=== PATIENT | male | born 1975 | race Caucasian/White ===

== ENCOUNTER 2016-11-10 14:11 | Inpatient (IN) | payer OTHER ==
[2016-11-10 16:11] VITALS: BMI 22.1
--- NOTE | 2016-11-10 17:46 | HP ---
COWS - Scale Resting Pulse: 0= [place] 80 or Below Sweatin= Chills/Flushing Restless Observation: 3= Extraneous Movement Pupil Size: 0= Normal to Room Light Bone or Joint Aches: 2= Severe Diffuse Aches Runny Nose/ Eye Tearin= Runny Nose/Eyes GI Upset > 30mins: 2= Nausea/Diarrhea Tremor Observation: 2= Slight Tremor Visible Yawning Observation: 0= None Anxiety or Irritability: 2=Irritable/Anxious Goose Flesh Skin: 0=Smooth Skin COWS Score: 14 Admission [facility] Chief Complaint: WITHDRAWAL SX Allergies/Adverse Reactions: Allergies Allergy/AdvReac Type Severity Reaction Status Date / Time shellfish derived Allergy Severe Itching Verified 11/10/16 17:09 No Known Drug Allergies Allergy Verified 11/10/16 17:09 History of Present Illness: 40 YEARS OLD MALE WITH LONG HISTORY OF OPIATE, COCAINE, MARIJUANA, NICOTINE DEPENDENCE HAS HYPERTENSION HYPERLIPIDEMIA ASTHMA AND ARTHRITIS AND DEPRESSION IS ADMITTED TO DETOX Exam Limitations: No Limitations - Ebola screening Have you traveled outside of the country in the last 21 days: No Have you had contact with anyone from an Ebola affected area: No Have you been sick,other than usual withdrawal symptoms: No Do you have a fever: No - Review of Systems Constitutional: Loss of Appetite, Changes in sleep, Unintentional Wgt. Loss, Unexplained wgt Loss EENT: reports: Blurred Vision (EYE GLASSES AT HOME) Respiratory: reports: No Symptoms reported Cardiac: reports: No Symptoms Reported GI: reports: Nausea, Poor Appetite, Poor Fluid Intake, Indigestion, Abdominal cramping : reports: No Symptoms Reported Musculoskeletal: reports: Back Pain, Joint Pain, Muscle Pain, Neck Pain Integumentary: reports: No Symptoms Reported Neuro: reports: Tremors Endocrine: reports: No Symptoms Reported Hematology: reports: No Symptoms Reported Psychiatric: reports: Judgement Intact, Orientated x3, Anxious, Depressed Other Systems: Reviewed and Negative Patient History - Patient Medical History Hx Anemia: No Hx Asthma: Yes (Pt is on MDI) Hx Chronic Obstructive Pulmonary Disease (COPD): No Hx Cancer: No Hx Cardiac Disorders: Yes (WPW syndrome.) Hx Congestive Heart Failure: No Hx Hypertension: Yes Hx Hypercholesterolemia: No Hx Pacemaker: No HX Cerebrovascular Accident: No Hx Seizures: No Hx Dementia: No Hx Diabetes: No Hx Gastrointestinal Disorders: No Hx Liver Disease: No Hx Genitourinary Disorders: No Hx Sexually Transmitted Disorders: No Hx Renal Disease (ESRD): No Hx Thyroid Disease: No Hx Human Immunodeficiency Virus (HIV): No (neg - 10/02/15) Hx Hepatitis C: No Hx Depression: No Hx Suicide Attempt: Yes (Tried to hang himself in group home in 2014) Hx Bipolar Disorder: Yes Hx Schizophrenia: No - Patient Surgical History Past Surgical History: No Hx Neurologic Surgery: No Hx Cataract Extraction: No Hx Cardiac Surgery: No Hx Lung Surgery: No Hx Breast Surgery: No Hx Breast Biopsy: No Hx Abdominal Surgery: No Hx Appendectomy: No Hx Cholecystectomy: No Hx Genitourinary Surgery: No Hx Orthopedic Surgery: No - PPD History Previous Implant?: Yes Documented Results: Negative w/o proof Implanted On Prior [facility] Admission?: Yes Date: 10/12/15 Results: 0 mm PPD to be Administered?: Yes - Smoking Cessation Smoking history: Current every day smoker Have you smoked in the past 12 months: Yes Aproximately how many cigarettes per day: 15 Cigars Per Day: 0 Hx Chewing Tobacco Use: No Initiated information on smoking cessation: Yes 'Breaking Loose' booklet given: 11/10/16 - Substance & Tx. History Hx Alcohol Use: No Hx Substance Use: Yes Substance Use Type: Cocaine, Marijuana, Opiates Hx Substance Use Treatment: Yes (09/2015 [facility]) - Substances Abused Heroin Route: Inhalation Frequency: Daily Amount used: 3 bags Age of first use: 23 Date of Last Use: 11/10/16 Crack Route: Smoking Frequency: Daily Amount used: $50-200 Age of first use: 17 Date of Last Use: 11/10/16 Marijuana/Hashish Route: Smoking Frequency: Daily Amount used: 1 gram Age of first use: 9 Date of Last Use: 11/09/16 Family Disease History - Family Disease History Family History: Unable to Obtain Family Disease History: Diabetes: Grandparent, Other: Father (NO CONTACT), Mother (NO CONTACT), Brother (NO CONTACT), Sister (NO CONTACT) Admission Physical Exam BHS - Vital Signs Vital Signs: Vital Signs - 24 hr 11/10/16 16:07 Temperature 95.4 F L Pulse Rate 73 Respiratory 20 Rate Blood Pressure 125/73 - Physical General Appearance: Yes: Appropriately Dressed, Mild Distress, Thin, Tremorous, Irritable, Sweating, Anxious HEENTM: Yes: Hearing grossly Normal, Normal ENT Inspection, Normocephalic, Normal Voice Respiratory: Yes: Chest Non-Tender, Normal Breath Sounds, No Accessory Muscle Use, Wheezing Neck: Yes: Supple, Trachea in good position Breast: Yes: Breasts Symetrical Cardiology: Yes: Regular Rhythm, Regular Rate, S1, S2, Other ([employer]) Abdominal: Yes: Non Tender, Soft, Increased Bowel Sounds Genitourinary: Yes: Within Normal Limits Back: Yes: Normal Inspection Musculoskeletal: Yes: full range of Motion, Gait Steady Extremities: Yes: Normal Inspection, Normal Range of Motion, Non-Tender, Tremors Neurological: Yes: Alert, Motor Strength 5/5, Normal Response Integumentary: Yes: Warm Lymphatic: Yes: Within Normal Limits - Diagnostic (1) Asthma Current Visit: Yes Status: Chronic Qualifiers: Asthma severity: mild persistent (2) Nicotine dependence Current Visit: Yes Status: Acute Qualifiers: Nicotine product type: cigarettes Substance use status: in withdrawal Qualified Code(s): F17.213 - Nicotine dependence, cigarettes, with withdrawal (3) 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 (4) GERD (gastroesophageal reflux disease) Current Visit: Yes Status: Chronic Qualifiers: Esophagitis presence: without esophagitis Qualified Code(s): K21.9 - Gastro-esophageal reflux disease without esophagitis (5) Bipolar II disorder Current Visit: Yes Status: Suspected (6) Hypertension Current Visit: Yes Status: Chronic Qualifiers: Hypertension type: essential hypertension Qualified Code(s): I10 - Essential (primary) hypertension (7) Weight loss Current Visit: Yes Status: Acute Cleared for Admission [facility] - Detox or Rehab [facility] Level of Care: Medically Managed Detox Regimen/Protocol: Methadone [facility] Breath Alcohol Content Breath Alcohol Content: 0 Urine Drug Screen - Results Drug Screen Negative: No Urine Drug Screen Results: THC-Marijuana, GERARD-Cocaine, OPI-Opiates
[2016-11-10] MEDS ORDERED: guaiFENesin/D-METHORPHAN HB 10 ML UNIT-DOSE CUPS PO PRN (18:01)
[2016-11-10] MEDS ORDERED: P-EPHED 60MG/TRIPROLIDI 2.5MG TABLET PO PRN (18:01)
[2016-11-10] MEDS ORDERED: MAGNESIUM HYDROX 2400MG/30ML ORAL SUSPENSION 30 ML CUP PO PRN (18:01)
[2016-11-10] MEDS ORDERED: LOPERAMIDE HCL 2 MG CAPSULE PO PRN (18:01)
[2016-11-10] MEDS ORDERED: MENTHOL/PHENOL 1 EACH UD MM PRN (18:01)
[2016-11-10] MEDS ORDERED: MAGNESIUM CITRATE 300 ML BOTTLE PO PRN (18:01)
[2016-11-10] MEDS ORDERED: diphenhydrAMINE HCL 50 MG CAPSULE PO PRN (18:01)
[2016-11-10] MEDS ORDERED: ACETAMINOPHEN 325 MG TABLET (FP) PO PRN (18:01)
[2016-11-10] MEDS ORDERED: NICOTINE POLACRILEX 4 MG GUM BC PRN (18:01)
[2016-11-10] MEDS ORDERED: MAG HYDROX/AL HYDROX/SIMETH 30 ML UNIT-DOSE CUP PO PRN (18:01)
[2016-11-10] MEDS ORDERED: ALBUTEROL SO4 2.5/IPRATROPIUM 0.5 INH SOL 3 ML VIAL.NEB. NEB PRN (18:05)
[2016-11-10] MEDS ORDERED: METHADONE HCL 10 MG TABLET (FOR DETOX USE ONLY) PO ONE ×2 (18:45→23:00)
[2016-11-10] MEDS: diazePAM 5 MG TABLET PO PRN (20:13)
[2016-11-10] MEDS: ATORVASTATIN CA 10 MG TABLET (FP) PO SCH (22:19)
[2016-11-10] MEDS: RANITIDINE HCL 150 MG TABLET (FP) PO SCH (22:19)
[2016-11-10] MEDS: THIAMINE HCL 100 MG TABLET (FP) PO SCH (22:19)
[2016-11-10 22:36] LABS: URINE APPEARANCE CLEAR; URINE BILIRUBIN NEGATIVE (NEGATIVE); URINE BLOOD NEGATIVE (NEGATIVE); URINE COLOR YELLOW; URINE GLUCOSE (UA) NEGATIVE (NEGATIVE); URINE KETONE NEGATIVE (NEGATIVE); URINE LEUK ESTERASE NEGATIVE (NEGATIVE); URINE NITRITE NEGATIVE (NEGATIVE); URINE PROTEIN NEGATIVE (NEGATIVE); URINE UROBILINOGEN NEGATIVE mg/dL (0.2-1.0)
[2016-11-11] MEDS: diazePAM 5 MG TABLET PO PRN ×5 (03:45→23:32)
[2016-11-11] MEDS: ALBUTEROL SO4 6.7 GM HFA INHALER IH PRN ×3 (03:49→21:25)
--- NOTE | 2016-11-11 08:08 | CONSULT ---
[facility] Psychiatric Consult - Data Date of interview: 11/11/16 Admission source: [facility] Identifying data: This is 40 years old male with history of Schizoaffective disorder, intoxicated with: Alcohol, Cannabis a nd Nicotine Substance Abuse History: - Smoking Cessation. Smoking history: Current every day smoker. Have you smoked in the past 12 months: Yes. Aproximately how many cigarettes per day: 15. Cigars Per Day: 0. Hx Chewing Tobacco Use: No. Initiated information on smoking cessation: Yes. 'Breaking Loose' booklet given : 11/10/16. - Substance & Tx. History. Hx Alcohol Use: No. Hx Substance Use: Yes. Substance Use Type: Cocaine, Marijuana, Opiates. Hx Substance Use Treatment: Yes (09/2015 [facility]). - Substances Abused. Heroin. Route: Inhalation. Frequency: Daily. Amount used: 3 bags. Age of first use: 23. Date of Last Use: 11/10/16. Crack. Route: Smoking. Frequency: Daily. Amount used: $50-200. Age of first use: 17. Date of Last Use: 11/10/16. Marijuana/Hashish. Route: Smoking. Frequency: Daily. Amount used: 1 gram. Age of first use: 9. Date of Last Use: 11/09/16 Medical History: HTN, LBP, Weight loss, Asthma, GERD, WPW Syndrom Psychiatric History: Patient reports history of Schozpaffective disorder with most recent 2017 psychoiatric admission at [facility] for safety, patient reports taking prior to admission: Seroquel 200mg po qhs. Celexa 20mg poqd Physical/Sexual Abuse/Trauma History: Denies Additional Comment: Seroquel 200mg po qhs. Celexa 20mg poqd Mental Status Exam - Mental Status Exam Alert and Oriented to: Person Cognitive Function: Fair Patient Appearance: Unkempt Mood: Anxious Affect: Mood Congruent Patient Behavior: Cooperative Speech Pattern: Appropriate Voice Loudness: Normal Thought Process: Circumstantial Thought Disorder: Being Controlled Hallucinations: Denies Suicidal Ideation: Denies Homicidal Ideation: Denies Insight/Judgement: Fair Sleep: Difficulty falling asleep Appetite: Weight loss Muscle strength/Tone: Mild Hypotonicity Gait/Station: Shuffling Additional Comments: Seroquel 200mg po qhs. Celexa 20mg poqd Psychiatric Findings - Problem List ([place] 1, 2,3) (1) Nicotine dependence Current Visit: Yes Status: Acute Qualifiers: Nicotine product type: cigarettes Substance use status: in withdrawal Qualified Code(s): F17.213 - Nicotine dependence, cigarettes, with withdrawal (2) Weight loss Current Visit: Yes Status: Acute (3) Bipolar II disorder Current Visit: Yes Status: Suspected (4) Acute bilateral low back pain Current Visit: No Status: Acute (5) Cocaine abuse Current Visit: No Status: Acute (6) Schizoaffective disorder Current Visit: No Status: Acute (7) Alcohol dependence with uncomplicated withdrawal Current Visit: No Status: Chronic (8) Cannabis abuse Current Visit: No Status: Chronic - Initial Treatment Plan Initial Treatment Plan: Seroquel 200mg po qhs. Celexa 20mg poqd
[2016-11-11 09:45] LABS: MCH 27.1 pg (25.7-33.7); MCHC 32.7 g/dl (32.0-35.9); MEAN CELL VOLUME 82.6 fl (80-96); MEAN PLT VOLUME 8.5 fl (7.5-11.1); PLATELET COUNT 445 K/MM3 (134-434); WHITE BLOOD COUNT 13.8 K/mm3 (4.0-10.0)
[2016-11-11 09:59] LABS: ALBUMIN 3.1 g/dl (3.4-5.0); ALK PHOS 98 U/L (45-117); ANION GAP 6 (8-16); BILIRUBIN,TOTAL 0.2 mg/dL (0.2-1.0); CALCIUM 9.1 mg/dL (8.5-10.1); CO2 28 mmol/L (21-32); CREATININE 0.7 mg/dL (0.7-1.3); GLUCOSE,RANDOM 87 mg/dL (74-106); SGOT/AST 24 U/L (15-37); SGPT/ALT 33 U/L (12-78); TOT PROT 5.9 g/dl (6.4-8.2)
[2016-11-11] MEDS ORDERED: METHADONE HCL 10 MG TABLET (FOR DETOX USE ONLY) PO ONE (10:00)
[2016-11-11] MEDS: NICOTINE 21 MG/24 HOURS TOPICAL PATCH TD SCH (10:11)
[2016-11-11] MEDS: PRENATAL VITAMINS W/ FOLIC ACID TABLET (FP) PO SCH (10:11)
[2016-11-11] MEDS: amLODIPine BESYLATE 10 MG TABLET (FP) PO SCH (10:11)
[2016-11-11] MEDS: RANITIDINE HCL 150 MG TABLET (FP) PO SCH ×2 (10:11→21:23)
[2016-11-11] MEDS: CITALOPRAM HYDROBROMIDE 20 MG TABLET (FP) PO SCH (10:13)
--- NOTE | 2016-11-11 10:25 | EKG ---
Test Reason : Blood Pressure : / mmHG Vent. Rate : 064 BPM Atrial Rate : 064 BPM P-R Int : 130 ms QRS Dur : 094 ms QT Int : 392 ms P-R-T Axes : 068 041 072 degrees QTc Int : 404 ms NORMAL SINUS RHYTHM NORMAL ECG NO PREVIOUS ECGS AVAILABLE Confirmed by CATHY PITTMAN, ROBERTH ([id number]) on 11/11/2016 10:24:45 AM Referred By: Wolf Pink Confirmed By:ROBERTH MORGAN MD
[2016-11-11 11:01] LABS: HIV 1 & 2 AB NEGATIVE; HIV 1 AGp24 NEGATIVE
--- NOTE | 2016-11-11 11:24 | PN ---
BHS COWS - Scale Resting Pulse: 0= [place] 80 or Below Sweatin=Flushed/Facial Moisture Restless Observation: 1= Difficult to Sit Still Pupil Size: 0= Normal to Room Light Bone or Joint Aches: 1= Mild Discomfort Runny Nose/ Eye Tearin= Runny Nose/Eyes GI Upset > 30mins: 0= None Tremor Observation of Outstretched Hands: 2= Slight Tremor Visible Yawning Observation: 2= >3x During Session Anxiety or Irritability: 2=Irritable/Anxious Goose Flesh Skin: 0=Smooth Skin COWS Score: 12 BHS Progress Note (SOAP) Subjective: shakes sweats interrupted sleep agitation Objective: 11/11/16 11:23 Vital Signs Temperature 97.9 F 11/11/16 06:31 Pulse Rate 78 11/11/16 06:31 Respiratory Rate 18 11/11/16 06:31 Blood Pressure 128/69 11/11/16 06:31 O2 Sat by Pulse Oximetry (%) Laboratory Tests 11/10/16 11/11/16 11/11/16 21:15 07:00 07:00 WBC 13.8 H D RBC 4.93 Hgb 13.3 Hct 40.7 MCV 82.6 MCH 27.1 MCHC 32.7 RDW 16.0 H Plt Count 445 H MPV 8.5 Sodium Potassium Chloride Carbon Dioxide Anion Gap BUN Creatinine Creat Clearance w eGFR Random Glucose Calcium Total Bilirubin AST ALT Alkaline Phosphatase Total Protein Albumin Urine Color Yellow Urine Appearance Clear Urine pH 6.0 Ur Specific [place] 1.020 Urine Protein Negative Urine Glucose (UA) Negative Urine Ketones Negative Urine Blood Negative Urine Nitrite Negative Urine Bilirubin Negative Urine Urobilinogen Negative HIV 1&2 Antibody Screen Negative HIV P24 Antigen Negative 11/11/16 07:00 WBC RBC Hgb Hct MCV MCH MCHC RDW Plt Count MPV Sodium 142 Potassium 4.8 Chloride 108 H Carbon Dioxide 28 Anion Gap 6 L BUN 14 Creatinine 0.7 D Creat Clearance w eGFR > 60 Random Glucose 87 D Calcium 9.1 Total Bilirubin 0.2 D AST 24 D ALT 33 Alkaline Phosphatase 98 D Total Protein 5.9 L Albumin 3.1 L D Urine Color Urine Appearance Urine pH Ur Specific [place] Urine Protein Urine Glucose (UA) Urine Ketones Urine Blood Urine Nitrite Urine Bilirubin Urine Urobilinogen HIV 1&2 Antibody Screen HIV P24 Antigen awake/alert ambulating no acute distress Assessment: 11/11/16 11:24 withdrawal sx Plan: continue detox increase fluids
[2016-11-11] MEDS ORDERED: PATIENT'S OWN MEDICATION (NON-FORMULARY) (Meloxicam [Mobic] 15 MG) PO SCH (16:00)
--- NOTE | 2016-11-11 17:53 | PN ---
BHS Progress Note Note: RECEIVED PHARMACIST INFORMED THAT LACK OF MOBIC AVAILABILITY, CELEBREX 200 MG BID CONTINUE DETOX
[2016-11-11] MEDS: CELECOXIB 200 MG CAPSULE PO SCH (21:23)
[2016-11-11] MEDS: ATORVASTATIN CA 10 MG TABLET (FP) PO SCH (21:23)
[2016-11-11] MEDS: QUEtiapine FUMARATE 200 MG TABLET PO SCH (21:23)
[2016-11-11] MEDS: THIAMINE HCL 100 MG TABLET (FP) PO SCH (23:31)
[2016-11-12] MEDS: diazePAM 5 MG TABLET PO PRN ×4 (06:42→22:24)
[2016-11-12] MEDS ORDERED: METHADONE HCL 5 MG TABLET (FOR DETOX USE ONLY) PO ONE (10:00)
[2016-11-12] MEDS: RANITIDINE HCL 150 MG TABLET (FP) PO SCH ×2 (10:12→22:24)
[2016-11-12] MEDS: amLODIPine BESYLATE 10 MG TABLET (FP) PO SCH (10:13)
[2016-11-12] MEDS: CITALOPRAM HYDROBROMIDE 20 MG TABLET (FP) PO SCH (10:13)
[2016-11-12] MEDS: PRENATAL VITAMINS W/ FOLIC ACID TABLET (FP) PO SCH (10:13)
[2016-11-12] MEDS: NICOTINE 21 MG/24 HOURS TOPICAL PATCH TD SCH (10:13)
[2016-11-12] MEDS: CELECOXIB 200 MG CAPSULE PO SCH ×2 (10:13→22:24)
--- NOTE | 2016-11-12 11:08 | PN ---
BHS COWS - Scale Resting Pulse: 0= [place] 80 or Below Sweatin=Flushed/Facial Moisture Restless Observation: 1= Difficult to Sit Still Pupil Size: 0= Normal to Room Light Bone or Joint Aches: 2= Severe Diffuse Aches Runny Nose/ Eye Tearin= Nasal Congestion GI Upset > 30mins: 1= Stomach Cramp Tremor Observation of Outstretched Hands: 2= Slight Tremor Visible Yawning Observation: 2= >3x During Session Anxiety or Irritability: 2=Irritable/Anxious Goose Flesh Skin: 0=Smooth Skin COWS Score: 13 BHS Progress Note (SOAP) Subjective: body aches headaches interrupted sleep sweats Objective: 11/12/16 11:08 Vital Signs Temperature 97.9 F 11/12/16 06:57 Pulse Rate 67 11/12/16 10:02 Respiratory Rate 18 11/12/16 10:02 Blood Pressure 126/58 11/12/16 10:02 O2 Sat by Pulse Oximetry (%) Laboratory Tests 11/10/16 11/11/16 11/11/16 21:15 07:00 07:00 WBC 13.8 H D RBC 4.93 Hgb 13.3 Hct 40.7 MCV 82.6 MCH 27.1 MCHC 32.7 RDW 16.0 H Plt Count 445 H MPV 8.5 Sodium Potassium Chloride Carbon Dioxide Anion Gap BUN Creatinine Creat Clearance w eGFR Random Glucose Calcium Total Bilirubin AST ALT Alkaline Phosphatase Total Protein Albumin Urine Color Yellow Urine Appearance Clear Urine pH 6.0 Ur Specific [place] 1.020 Urine Protein Negative Urine Glucose (UA) Negative Urine Ketones Negative Urine Blood Negative Urine Nitrite Negative Urine Bilirubin Negative Urine Urobilinogen Negative RPR Titer HIV 1&2 Antibody Screen Negative HIV P24 Antigen Negative 11/11/16 11/11/16 07:00 07:00 WBC RBC Hgb Hct MCV MCH MCHC RDW Plt Count MPV Sodium 142 Potassium 4.8 Chloride 108 H Carbon Dioxide 28 Anion Gap 6 L BUN 14 Creatinine 0.7 D Creat Clearance w eGFR > 60 Random Glucose 87 D Calcium 9.1 Total Bilirubin 0.2 D AST 24 D ALT 33 Alkaline Phosphatase 98 D Total Protein 5.9 L Albumin 3.1 L D Urine Color Urine Appearance Urine pH Ur Specific [place] Urine Protein Urine Glucose (UA) Urine Ketones Urine Blood Urine Nitrite Urine Bilirubin Urine Urobilinogen RPR Titer Nonreactive HIV 1&2 Antibody Screen HIV P24 Antigen awake/alert ambulating no acute distress Assessment: 11/12/16 11:09 withdrawal sx Plan: continue detox increase fluids continue celebrex as prescribed
[2016-11-12] MEDS: ALBUTEROL SO4 6.7 GM HFA INHALER IH PRN (17:27)
[2016-11-12] MEDS: ATORVASTATIN CA 10 MG TABLET (FP) PO SCH (22:24)
[2016-11-12] MEDS: QUEtiapine FUMARATE 200 MG TABLET PO SCH (22:24)
[2016-11-12] MEDS: THIAMINE HCL 100 MG TABLET (FP) PO SCH (22:24)
[2016-11-13] MEDS ORDERED: METHADONE HCL 5 MG TABLET (FOR DETOX USE ONLY) PO ONE (10:00)
[2016-11-13] MEDS: amLODIPine BESYLATE 10 MG TABLET (FP) PO SCH (10:09)
[2016-11-13] MEDS: PRENATAL VITAMINS W/ FOLIC ACID TABLET (FP) PO SCH (10:09)
[2016-11-13] MEDS: RANITIDINE HCL 150 MG TABLET (FP) PO SCH ×2 (10:09→22:18)
[2016-11-13] MEDS: CITALOPRAM HYDROBROMIDE 20 MG TABLET (FP) PO SCH (10:09)
[2016-11-13] MEDS: NICOTINE 21 MG/24 HOURS TOPICAL PATCH TD SCH (10:10)
[2016-11-13] MEDS: CELECOXIB 200 MG CAPSULE PO SCH ×2 (10:10→22:18)
--- NOTE | 2016-11-13 10:58 | PN ---
BHS Progress Note (SOAP) Subjective: sleepy tired interrupted sleep sweats Objective: 11/13/16 10:53 Vital Signs Temperature 96.3 F L 11/13/16 09:39 Pulse Rate 76 11/13/16 09:39 Respiratory Rate 16 11/13/16 09:39 Blood Pressure 107/69 11/13/16 09:39 O2 Sat by Pulse Oximetry (%) Laboratory Tests 11/10/16 11/11/16 11/11/16 21:15 07:00 07:00 WBC 13.8 H D RBC 4.93 Hgb 13.3 Hct 40.7 MCV 82.6 MCH 27.1 MCHC 32.7 RDW 16.0 H Plt Count 445 H MPV 8.5 Sodium Potassium Chloride Carbon Dioxide Anion Gap BUN Creatinine Creat Clearance w eGFR Random Glucose Calcium Total Bilirubin AST ALT Alkaline Phosphatase Total Protein Albumin Urine Color Yellow Urine Appearance Clear Urine pH 6.0 Ur Specific [place] 1.020 Urine Protein Negative Urine Glucose (UA) Negative Urine Ketones Negative Urine Blood Negative Urine Nitrite Negative Urine Bilirubin Negative Urine Urobilinogen Negative RPR Titer HIV 1&2 Antibody Screen Negative HIV P24 Antigen Negative 11/11/16 11/11/16 07:00 07:00 WBC RBC Hgb Hct MCV MCH MCHC RDW Plt Count MPV Sodium 142 Potassium 4.8 Chloride 108 H Carbon Dioxide 28 Anion Gap 6 L BUN 14 Creatinine 0.7 D Creat Clearance w eGFR > 60 Random Glucose 87 D Calcium 9.1 Total Bilirubin 0.2 D AST 24 D ALT 33 Alkaline Phosphatase 98 D Total Protein 5.9 L Albumin 3.1 L D Urine Color Urine Appearance Urine pH Ur Specific [place] Urine Protein Urine Glucose (UA) Urine Ketones Urine Blood Urine Nitrite Urine Bilirubin Urine Urobilinogen RPR Titer Nonreactive HIV 1&2 Antibody Screen HIV P24 Antigen AAOx3 ambulating no acute distress Assessment: 11/13/16 10:55 withdrawal sx Plan: continue detox increase fluids motrin prn
[2016-11-13] MEDS: ALBUTEROL SO4 6.7 GM HFA INHALER IH PRN (12:55)
[2016-11-13] MEDS: ATORVASTATIN CA 10 MG TABLET (FP) PO SCH (22:18)
[2016-11-13] MEDS: THIAMINE HCL 100 MG TABLET (FP) PO SCH (22:18)
[2016-11-13] MEDS: QUEtiapine FUMARATE 200 MG TABLET PO SCH (22:18)
[2016-11-14] MEDS ORDERED: METHADONE HCL 10 MG TABLET (FOR DETOX USE ONLY) PO ONE (10:00)
[2016-11-14] MEDS: ALBUTEROL SO4 6.7 GM HFA INHALER IH PRN (10:35)
[2016-11-14] MEDS: RANITIDINE HCL 150 MG TABLET (FP) PO SCH ×2 (10:35→22:11)
[2016-11-14] MEDS: CELECOXIB 200 MG CAPSULE PO SCH ×2 (10:35→22:10)
[2016-11-14] MEDS: CITALOPRAM HYDROBROMIDE 20 MG TABLET (FP) PO SCH (10:36)
[2016-11-14] MEDS: amLODIPine BESYLATE 10 MG TABLET (FP) PO SCH (10:36)
[2016-11-14] MEDS: PRENATAL VITAMINS W/ FOLIC ACID TABLET (FP) PO SCH (10:36)
[2016-11-14] MEDS: NICOTINE 21 MG/24 HOURS TOPICAL PATCH TD SCH (10:36)
--- NOTE | 2016-11-14 12:56 | PN ---
BHS Progress Note (SOAP) Subjective: muscle weakness and interrupted sleep Objective: 11/14/16 12:55 Vital Signs - 8 hr 11/14/16 11/14/16 06:45 11:00 Temperature 97.6 F 96.4 F L Pulse Rate 68 74 Respiratory 18 16 Rate Blood Pressure 97/59 122/85 Laboratory Last Values WBC 13.8 K/mm3 (4.0-10.0) H D 11/11/16 07:00 RBC 4.93 M/mm3 (4.00-5.60) 11/11/16 07:00 Hgb 13.3 GM/dL (11.7-16.9) 11/11/16 07:00 Hct 40.7 % (35.4-49) 11/11/16 07:00 MCV 82.6 fl (80-96) 11/11/16 07:00 MCH 27.1 pg (25.7-33.7) 11/11/16 07:00 MCHC 32.7 g/dl (32.0-35.9) 11/11/16 07:00 RDW 16.0 % (11.9-15.9) H 11/11/16 07:00 Plt Count 445 K/MM3 (134-434) H 11/11/16 07:00 MPV 8.5 fl (7.5-11.1) 11/11/16 07:00 Sodium 142 mmol/L (136-145) 11/11/16 07:00 Potassium 4.8 mmol/L (3.5-5.1) 11/11/16 07:00 Chloride 108 mmol/L (98-107) H 11/11/16 07:00 Carbon Dioxide 28 mmol/L (21-32) 11/11/16 07:00 Anion Gap 6 (8-16) L 11/11/16 07:00 BUN 14 mg/dL (7-18) 11/11/16 07:00 Creatinine 0.7 mg/dL (0.7-1.3) D 11/11/16 07:00 Creat Clearance w eGFR > 60 (>60) 11/11/16 07:00 Random Glucose 87 mg/dL (74-106) D 11/11/16 07:00 Calcium 9.1 mg/dL (8.5-10.1) 11/11/16 07:00 Total Bilirubin 0.2 mg/dL (0.2-1.0) D 11/11/16 07:00 AST 24 U/L (15-37) D 11/11/16 07:00 ALT 33 U/L (12-78) 11/11/16 07:00 Alkaline Phosphatase 98 U/L (45-117) D 11/11/16 07:00 Total Protein 5.9 g/dl (6.4-8.2) L 11/11/16 07:00 Albumin 3.1 g/dl (3.4-5.0) L D 11/11/16 07:00 Urine Color Yellow 11/10/16 21:15 Urine Appearance Clear 11/10/16 21:15 Urine pH 6.0 (5.0-8.0) 11/10/16 21:15 Ur Specific [place] 1.020 (1.005-1.025) 11/10/16 21:15 Urine Protein Negative (NEGATIVE) 11/10/16 21:15 Urine Glucose (UA) Negative (NEGATIVE) 11/10/16 21:15 Urine Ketones Negative (NEGATIVE) 11/10/16 21:15 Urine Blood Negative (NEGATIVE) 11/10/16 21:15 Urine Nitrite Negative (NEGATIVE) 11/10/16 21:15 Urine Bilirubin Negative (NEGATIVE) 11/10/16 21:15 Urine Urobilinogen Negative mg/dL (0.2-1.0) 11/10/16 21:15 RPR Titer Nonreactive (NONREACTIVE) 11/11/16 07:00 HIV 1&2 Antibody Screen Negative 11/11/16 07:00 HIV P24 Antigen Negative 11/11/16 07:00 labs noted Assessment: 11/14/16 12:56 withdrawal sx Plan: continue detox
[2016-11-14] MEDS: THIAMINE HCL 100 MG TABLET (FP) PO SCH (22:10)
[2016-11-14] MEDS: ATORVASTATIN CA 10 MG TABLET (FP) PO SCH (22:11)
[2016-11-14] MEDS: QUEtiapine FUMARATE 200 MG TABLET PO SCH (22:11)
[2016-11-15] MEDS ORDERED: METHADONE HCL 5 MG TABLET (FOR DETOX USE ONLY) PO ONE (06:00)
[2016-11-15] MEDS: amLODIPine BESYLATE 10 MG TABLET (FP) PO SCH (10:17)
[2016-11-15] MEDS: PRENATAL VITAMINS W/ FOLIC ACID TABLET (FP) PO SCH (10:17)
[2016-11-15] MEDS: RANITIDINE HCL 150 MG TABLET (FP) PO SCH (10:17)
[2016-11-15] MEDS: CITALOPRAM HYDROBROMIDE 20 MG TABLET (FP) PO SCH (10:17)
[2016-11-15] MEDS: CELECOXIB 200 MG CAPSULE PO SCH (10:17)
[2016-11-15] MEDS: NICOTINE 21 MG/24 HOURS TOPICAL PATCH TD SCH (10:18)
[2016-11-15 13:46] VITALS: BP 120/72; PULSE 72; TEMP 97.5
--- NOTE | 2016-11-15 15:56 | DS ---
[facility] Detox Discharge Summary Admission Date: 11/10/16 Discharge Date: 11/15/16 - History Present History: Alcohol Dependence, Cannabis Dependence, Cocaine Dependence Pertinent Past History: GERD HTN WPW - Physical Exam Results Vital Signs: Vital Signs Temperature 97.5 F L 11/15/16 13:44 Pulse Rate 72 11/15/16 13:44 Respiratory Rate 18 11/15/16 13:44 Blood Pressure 120/72 11/15/16 13:44 O2 Sat by Pulse Oximetry (%) Pertinent Admission Physical Exam Findings: Withdrawal sx. Laboratory Last Values WBC 13.8 K/mm3 (4.0-10.0) H D 11/11/16 07:00 RBC 4.93 M/mm3 (4.00-5.60) 11/11/16 07:00 Hgb 13.3 GM/dL (11.7-16.9) 11/11/16 07:00 Hct 40.7 % (35.4-49) 11/11/16 07:00 MCV 82.6 fl (80-96) 11/11/16 07:00 MCH 27.1 pg (25.7-33.7) 11/11/16 07:00 MCHC 32.7 g/dl (32.0-35.9) 11/11/16 07:00 RDW 16.0 % (11.9-15.9) H 11/11/16 07:00 Plt Count 445 K/MM3 (134-434) H 11/11/16 07:00 MPV 8.5 fl (7.5-11.1) 11/11/16 07:00 Sodium 142 mmol/L (136-145) 11/11/16 07:00 Potassium 4.8 mmol/L (3.5-5.1) 11/11/16 07:00 Chloride 108 mmol/L (98-107) H 11/11/16 07:00 Carbon Dioxide 28 mmol/L (21-32) 11/11/16 07:00 Anion Gap 6 (8-16) L 11/11/16 07:00 BUN 14 mg/dL (7-18) 11/11/16 07:00 Creatinine 0.7 mg/dL (0.7-1.3) D 11/11/16 07:00 Creat Clearance w eGFR > 60 (>60) 11/11/16 07:00 Random Glucose 87 mg/dL (74-106) D 11/11/16 07:00 Calcium 9.1 mg/dL (8.5-10.1) 11/11/16 07:00 Total Bilirubin 0.2 mg/dL (0.2-1.0) D 11/11/16 07:00 AST 24 U/L (15-37) D 11/11/16 07:00 ALT 33 U/L (12-78) 11/11/16 07:00 Alkaline Phosphatase 98 U/L (45-117) D 11/11/16 07:00 Total Protein 5.9 g/dl (6.4-8.2) L 11/11/16 07:00 Albumin 3.1 g/dl (3.4-5.0) L D 11/11/16 07:00 Urine Color Yellow 11/10/16 21:15 Urine Appearance Clear 11/10/16 21:15 Urine pH 6.0 (5.0-8.0) 11/10/16 21:15 Ur Specific [place] 1.020 (1.005-1.025) 11/10/16 21:15 Urine Protein Negative (NEGATIVE) 11/10/16 21:15 Urine Glucose (UA) Negative (NEGATIVE) 11/10/16 21:15 Urine Ketones Negative (NEGATIVE) 11/10/16 21:15 Urine Blood Negative (NEGATIVE) 11/10/16 21:15 Urine Nitrite Negative (NEGATIVE) 11/10/16 21:15 Urine Bilirubin Negative (NEGATIVE) 11/10/16 21:15 Urine Urobilinogen Negative mg/dL (0.2-1.0) 11/10/16 21:15 RPR Titer Nonreactive (NONREACTIVE) 11/11/16 07:00 HIV 1&2 Antibody Screen Negative 11/11/16 07:00 HIV P24 Antigen Negative 11/11/16 07:00 labs noted - Treatment Hospital Course: Detox Protocol Followed, Detoxed Safely, Responded well, Discharged Condition Good, Rehab Referral Accepted Patient has Accepted a Rehab Referral to: [facility] crisis & [facility] - Medication Discharge Medications: Ambulatory Orders Citalopram Hydrobromide [Celexa -] 20 mg PO DAILY #30 tablet 10/12/15 Albuterol Sulfate Inhaler - [Ventolin HFA Inhaler -] 2 inh PO Q4H PRN #1 inhaler 10/15/15 Amlodipine Besylate [Norvasc -] 10 mg PO DAILY #30 tablet 10/15/15 Atorvastatin Ca [Lipitor] 10 mg PO HS #30 tablet 10/15/15 Meloxicam [Mobic] 15 mg PO DAILY #30 tablet 10/15/15 Quetiapine Fumarate [Seroquel -] 200 mg PO HS 11/10/16 Citalopram Hydrobromide [Celexa -] 20 mg PO DAILY #30 tablet 11/11/16 Quetiapine Fumarate [Seroquel -] 200 mg PO HS #30 tab 11/11/16 - Diagnosis (1) Schizoaffective disorder Status: Acute (2) Alcohol dependence with uncomplicated withdrawal Status: Chronic (3) Asthma Status: Chronic Qualifiers: Asthma severity: mild intermittent (4) GERD (gastroesophageal reflux disease) Status: Chronic Qualifiers: Esophagitis presence: without esophagitis Qualified Code(s): K21.9 - Gastro-esophageal reflux disease without esophagitis (5) Hypertension Status: Chronic Qualifiers: Hypertension type: essential hypertension Qualified Code(s): I10 - Essential (primary) hypertension (6) Nicotine dependence Status: Chronic Qualifiers: Nicotine product type: cigarettes Substance use status: in withdrawal Qualified Code(s): F17.213 - Nicotine dependence, cigarettes, with withdrawal (7) WPW syndrome Status: Chronic (8) Bipolar II disorder Status: Suspected - AMA Did Patient Leave Against Medical Advice: No
== END 2016-11-15 14:45 | disposition other institution (70) | DRG 861 ==
LOC: YASAS 14:11 → Y6N 17:46
PROVIDERS: ADMIT Internal Medicine; ATTEND Internal Medicine
PROC: HZ2ZZZZ Detoxification Services for Substance Abuse Treatment (ICD-10-PCS; principal; 2016-11-10)
DX: F17.210 Nicotine dependence, cigarettes, uncomplicated (principal); F14.10 Cocaine abuse, uncomplicated; F12.10 Cannabis abuse, uncomplicated; F25.9 Schizoaffective disorder, unspecified; F31.81 Bipolar II disorder; I10 Essential (primary) hypertension; J45.22 Mild intermittent asthma with status asthmaticus; I45.6 Pre-excitation syndrome; K21.9 Gastro-esophageal reflux disease without esophagitis; R63.4 Abnormal weight loss; Z91.5 Personal history of self-harm
CPT/HCPCS: 36415; 80053; 81003; 85027; 86593; 87389; 93005; 93010

== ENCOUNTER 2016-11-15 15:24 | Inpatient (IN) | payer OTHER ==
[2016-11-15 15:47] VITALS: BMI 23.6
[2016-11-15] MEDS ORDERED: NICOTINE POLACRILEX 2 MG GUM BUC PRN (17:06)
[2016-11-15] MEDS ORDERED: LOPERAMIDE HCL 2 MG CAPSULE PO PRN (17:06)
[2016-11-15] MEDS ORDERED: IBUPROFEN 400 MG TABLET (FP) PO PRN (17:06)
[2016-11-15] MEDS ORDERED: guaiFENesin/D-METHORPHAN HB 10 ML UNIT-DOSE CUPS PO PRN (17:06)
[2016-11-15] MEDS ORDERED: MAGNESIUM CITRATE 300 ML BOTTLE PO PRN (17:06)
[2016-11-15] MEDS ORDERED: P-EPHED 60MG/TRIPROLIDI 2.5MG TABLET PO PRN (17:06)
[2016-11-15] MEDS ORDERED: MAGNESIUM HYDROX 2400MG/30ML ORAL SUSPENSION 30 ML CUP PO PRN (17:06)
--- NOTE | 2016-11-15 17:09 | HP ---
LACEY PITTMAN Rehab Assess/Revision - Admission History Admitted to Rehab [facility]: [facility] Date of Admission to Rehab: 11/15/16 - Vital signs Vital Signs: Vital Signs Period Temp Pulse Resp BP Sys/Littlejohn Pulse Ox Last 24 Hr 98.1 F 70 16 108/71 - Findings Detox History & Physical reviewed: Yes Concur with findings: Yes Inpatient Rehab Admission - Initial Determination Are CD services needed?: Yes Free of communicable disease: Yes Not in need of hospitalization: Yes - Rehab Admission Criteria Previous failed treatment: Yes Poor recovery environment: Yes Comorbidities: Yes Lacks judgement: Yes Patient is meeting Inpatient Rehab admission criteria:: Yes
[2016-11-15] MEDS: THIAMINE HCL 100 MG TABLET (FP) PO SCH (21:35)
[2016-11-15] MEDS: diphenhydrAMINE HCL 50 MG CAPSULE PO PRN (21:36)
[2016-11-15] MEDS: ATORVASTATIN CA 10 MG TABLET (FP) PO SCH (21:36)
[2016-11-15] MEDS ORDERED: QUEtiapine FUMARATE 200 MG TABLET PO SCH (22:00)
[2016-11-15] MEDS: ALBUTEROL SO4 6.7 GM HFA INHALER IH PRN (22:14)
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
[2016-11-16] MEDS: CITALOPRAM HYDROBROMIDE 20 MG TABLET (FP) PO SCH (10:15)
[2016-11-16] MEDS: amLODIPine BESYLATE 10 MG TABLET (FP) PO SCH (10:15)
[2016-11-16] MEDS: PRENATAL VITAMINS W/ FOLIC ACID TABLET (FP) PO SCH (10:16)
[2016-11-16] MEDS: NICOTINE 21 MG/24 HOURS TOPICAL PATCH TD SCH (10:16)
[2016-11-16] MEDS: PANTOPRAZOLE 40 MG TABLET (FP) PO SCH (11:15)
[2016-11-16] MEDS: NAPROXEN 500 MG TABLET (FP) PO SCH ×2 (11:15→21:32)
[2016-11-16] MEDS: cloNIDine HCL 0.1 MG TABLET PO SCH ×2 (11:17→22:12)
[2016-11-16] MEDS: GABAPENTIN 100 MG CAPSULE (FP) PO SCH ×2 (13:59→21:32)
[2016-11-16] MEDS: CYCLOBENZAPRINE HCL 10 MG TABLET (FP) PO SCH ×2 (13:59→21:32)
[2016-11-16] MEDS: MAG HYDROX/AL HYDROX/SIMETH 30 ML UNIT-DOSE CUP PO PRN (13:59)
[2016-11-16] MEDS: QUEtiapine FUMARATE 100 MG TABLET (FP) PO SCH (21:32)
[2016-11-16] MEDS: ATORVASTATIN CA 10 MG TABLET (FP) PO SCH (21:32)
[2016-11-16] MEDS: hydrOXYzine HCL 25 MG TABLET (FP) PO SCH (21:32)
[2016-11-16] MEDS: THIAMINE HCL 100 MG TABLET (FP) PO SCH (21:33)
[2016-11-17] MEDS: GABAPENTIN 100 MG CAPSULE (FP) PO SCH (06:23)
[2016-11-17] MEDS: hydrOXYzine HCL 25 MG TABLET (FP) PO SCH ×3 (06:23→21:27)
[2016-11-17] MEDS: CYCLOBENZAPRINE HCL 10 MG TABLET (FP) PO SCH (06:23)
[2016-11-17] MEDS: PANTOPRAZOLE 40 MG TABLET (FP) PO SCH (10:21)
[2016-11-17] MEDS: PRENATAL VITAMINS W/ FOLIC ACID TABLET (FP) PO SCH (10:21)
[2016-11-17] MEDS: amLODIPine BESYLATE 10 MG TABLET (FP) PO SCH (10:21)
[2016-11-17] MEDS: CITALOPRAM HYDROBROMIDE 20 MG TABLET (FP) PO SCH (10:21)
[2016-11-17] MEDS: buPROPion HCL 100 MG TABLET PO SCH (10:22)
[2016-11-17] MEDS: NAPROXEN 500 MG TABLET (FP) PO SCH ×2 (10:22→21:27)
[2016-11-17] MEDS: NICOTINE 21 MG/24 HOURS TOPICAL PATCH TD SCH (10:22)
[2016-11-17] MEDS: cloNIDine HCL 0.1 MG TABLET PO SCH (10:24)
[2016-11-17] MEDS: GABAPENTIN 300 MG CAPSULE (FP) PO SCH ×2 (14:18→21:27)
[2016-11-17] MEDS: ALBUTEROL SO4 6.7 GM HFA INHALER IH PRN (15:27)
[2016-11-17] MEDS: MENTHOL/PHENOL 1 EACH UD MM PRN (15:28)
[2016-11-17] MEDS: ATORVASTATIN CA 10 MG TABLET (FP) PO SCH (21:27)
[2016-11-17] MEDS: THIAMINE HCL 100 MG TABLET (FP) PO SCH (21:27)
[2016-11-17] MEDS: QUEtiapine FUMARATE 100 MG TABLET (FP) PO SCH (21:27)
[2016-11-18] MEDS: hydrOXYzine HCL 25 MG TABLET (FP) PO SCH ×3 (06:17→21:36)
[2016-11-18] MEDS: GABAPENTIN 300 MG CAPSULE (FP) PO SCH ×3 (06:17→21:36)
[2016-11-18] MEDS: PRENATAL VITAMINS W/ FOLIC ACID TABLET (FP) PO SCH (10:30)
[2016-11-18] MEDS: buPROPion HCL 100 MG TABLET PO SCH (10:30)
[2016-11-18] MEDS: amLODIPine BESYLATE 10 MG TABLET (FP) PO SCH (10:30)
[2016-11-18] MEDS: PANTOPRAZOLE 40 MG TABLET (FP) PO SCH (10:30)
[2016-11-18] MEDS: NICOTINE 21 MG/24 HOURS TOPICAL PATCH TD SCH (10:30)
[2016-11-18] MEDS: CITALOPRAM HYDROBROMIDE 20 MG TABLET (FP) PO SCH (10:30)
[2016-11-18] MEDS: NAPROXEN 500 MG TABLET (FP) PO SCH ×2 (10:31→21:36)
[2016-11-18] MEDS: ACETAMINOPHEN 325 MG TABLET (FP) PO PRN (16:40)
[2016-11-18] MEDS: THIAMINE HCL 100 MG TABLET (FP) PO SCH (21:36)
[2016-11-18] MEDS: QUEtiapine FUMARATE 100 MG TABLET (FP) PO SCH (21:36)
[2016-11-18] MEDS: ATORVASTATIN CA 10 MG TABLET (FP) PO SCH (21:36)
[2016-11-18] MEDS: ALBUTEROL SO4 6.7 GM HFA INHALER IH PRN (21:37)
[2016-11-18] MEDS: MENTHOL/PHENOL 1 EACH UD MM PRN (22:02)
[2016-11-19] MEDS: GABAPENTIN 300 MG CAPSULE (FP) PO SCH ×3 (06:24→21:38)
[2016-11-19] MEDS: hydrOXYzine HCL 25 MG TABLET (FP) PO SCH ×3 (06:24→21:38)
[2016-11-19] MEDS: PRENATAL VITAMINS W/ FOLIC ACID TABLET (FP) PO SCH (10:26)
[2016-11-19] MEDS: PANTOPRAZOLE 40 MG TABLET (FP) PO SCH (10:27)
[2016-11-19] MEDS: buPROPion HCL 100 MG TABLET PO SCH (10:27)
[2016-11-19] MEDS: CITALOPRAM HYDROBROMIDE 20 MG TABLET (FP) PO SCH (10:27)
[2016-11-19] MEDS: amLODIPine BESYLATE 10 MG TABLET (FP) PO SCH (10:27)
[2016-11-19] MEDS: NAPROXEN 500 MG TABLET (FP) PO SCH ×2 (10:27→21:38)
[2016-11-19] MEDS: NICOTINE 21 MG/24 HOURS TOPICAL PATCH TD SCH (10:28)
[2016-11-19] MEDS: ACETAMINOPHEN 325 MG TABLET (FP) PO PRN (14:16)
--- NOTE | 2016-11-19 14:25 | PN ---
Psychiatric Progress Note Vital Signs: Vital Signs Period Temp Pulse Resp BP Sys/Littlejohn Pulse Ox Last 24 Hr 97.8 F 79-88 18-18 118-122/73-75 Date of Session: 11/19/16 Chief Complaint:: "insomnia" HPI: Patient addressing Cocaine, Nicotine comrbid Schizoaffective disorder. Current Medications: Active Medications Generic Name Dose Route Start Last Admin Trade Name Freq PRN Reason Stop Dose Admin Acetaminophen 650 mg 11/15/16 17:06 11/19/16 14:16 Tylenol - PO 650 mg Q4H PRN Administration FEVER OR PAIN Al Hydroxide/Mg Hydroxide 30 ml 11/15/16 17:06 11/16/16 13:59 Mylanta Oral Suspension - PO 30 ml Q6H PRN Administration DYSPEPSIA Albuterol Sulfate 2 puff 11/15/16 17:07 11/18/16 21:37 Ventolin Hfa Inhaler - IH 2 puff Q4H PRN Administration ASTHMA Amlodipine Besylate 10 mg 11/16/16 10:00 11/19/16 10:27 Norvasc - PO 10 mg DAILY SEVEN Administration Atorvastatin Calcium 10 mg 11/15/16 22:00 11/18/16 21:36 Lipitor - PO 10 mg HS SEVEN Administration Bupropion HCl 100 mg 11/17/16 10:00 11/19/16 10:27 Wellbutrin - PO 100 mg DAILY SEVEN Administration Citalopram Hydrobromide 20 mg 11/16/16 10:00 11/19/16 10:27 Celexa - PO 20 mg DAILY SEVEN Administration Diphenhydramine HCl 50 mg 11/15/16 17:06 11/15/16 21:36 Benadryl - PO 50 mg HSMR1 PRN Administration FOR ITCHING Eucalyptus/Menthol/Phenol/Sorbitol 1 each 11/15/16 17:06 11/18/16 22:02 Cepastat Lozenge - MM 1 each Q4H PRN Administration SORE THROAT Gabapentin 300 mg 11/17/16 14:00 11/19/16 14:14 Neurontin - PO 300 mg TID SEVEN Administration Guaifenesin 10 ml 11/15/16 17:06 Robitussin Dm - PO Q6H PRN COUGH Hydroxyzine HCl 25 mg 11/16/16 22:00 11/19/16 14:14 Atarax - PO 25 mg TID SEVEN Administration Loperamide HCl 4 mg 11/15/16 17:06 Imodium - PO Q6H PRN DIARRHEA Magnesium Hydroxide 30 ml 11/15/16 17:06 Milk Of Magnesia - PO DAILY PRN CONSTIPATION Naproxen 500 mg 11/16/16 10:45 11/19/16 10:27 Naprosyn - PO 500 mg BID SEVEN Administration Nicotine 21 mg 11/16/16 10:00 11/19/16 10:28 Nicoderm Patch - TD 21 mg DAILY SEVEN Administration Nicotine Polacrilex 2 mg 11/15/16 17:06 Nicorette Gum - BUC Q2H PRN NICOTINE REPLACEMENT RX Pantoprazole Sodium 40 mg 11/16/16 10:45 11/19/16 10:27 Protonix - PO 40 mg DAILY SEVEN Administration Multivit/Folic Acid/Iron 1 tab 11/16/16 10:00 11/19/16 10:26 Vitamins (Sjr) - PO 1 tab DAILY SEVEN Administration Pseudoephedrine/Triprolidine 1 combo 11/15/16 17:06 Actifed - PO TID PRN NASAL CONGESTION Quetiapine Fumarate 100 mg 11/16/16 22:00 11/18/16 21:36 Seroquel - PO 100 mg HS SEVEN Administration Thiamine HCl 100 mg 11/15/16 22:00 11/18/16 21:36 Vitamin B1 - PO 100 mg HS SEVEN Administration Medication(s) Change(s): Belsomra Current Side Effect: No Lab tests ordered: No Lab tests reviewed: Yes Provider note:: Patient reports has been feelin well except of his difficulty to fall and maintain sleep, states was on Trazodone and did not like the side- effects in the morning. Reviewed medications with the patient, discussed indications and properties of Belsomra with the patient , he is willing to start medications, will add Belsomra 10 mg, monitor progress as needed. Total face to face time:: 15 Mental Status Exam - Mental Status Exam Alert and Oriented to: Time, Place, Person Cognitive Function: Grossly Intact Patient Appearance: Well Groomed Mood: Hopeful Affect: Appropriate, Mood Congruent, Normal Range Patient Behavior: Appropriate, Cooperative Speech Pattern: Clear, Appropriate Voice Loudness: Normal Thought Process: Intact, Goal Oriented Thought Disorder: Not Present Hallucinations: Denies Suicidal Ideation: Denies Homicidal Ideation: Denies Insight/Judgement: Fair Sleep: Poorly, Difficulty falling asleep Appetite: Fair Muscle strength/Tone: Normal Gait/Station: Normal Psychiatric Treatment Plan - Problem List (1) Schizoaffective disorder Current Visit: No (2) Nicotine dependence Current Visit: No Qualifiers: Nicotine product type: cigarettes Substance use status: in withdrawal Qualified Code(s): F17.213 - Nicotine dependence, cigarettes, with withdrawal (3) Cannabis dependence Current Visit: Yes (4) Cocaine dependence Current Visit: Yes
[2016-11-19] MEDS ORDERED: LORATADINE 10 MG TABLET PO SCH (14:30)
[2016-11-19] MEDS: FLUTICASONE PROP 0.05% 16 GM NASAL SPRAY NS SCH (15:14)
[2016-11-19] MEDS: ALBUTEROL SO4 6.7 GM HFA INHALER IH PRN (15:16)
[2016-11-19] MEDS: QUEtiapine FUMARATE 100 MG TABLET (FP) PO SCH (21:38)
[2016-11-19] MEDS: ATORVASTATIN CA 10 MG TABLET (FP) PO SCH (21:38)
[2016-11-19] MEDS: THIAMINE HCL 100 MG TABLET (FP) PO SCH (21:38)
[2016-11-19] MEDS: guaiFENesin/D-METHORPHAN HB 1 EACH TAB.ER.12H PO SCH (21:39)
[2016-11-20] MEDS: hydrOXYzine HCL 25 MG TABLET (FP) PO SCH ×3 (06:38→21:34)
[2016-11-20] MEDS: GABAPENTIN 300 MG CAPSULE (FP) PO SCH ×3 (06:38→21:34)
[2016-11-20] MEDS: ALBUTEROL SO4 6.7 GM HFA INHALER IH PRN (06:39)
[2016-11-20] MEDS: buPROPion HCL 100 MG TABLET PO SCH (10:23)
[2016-11-20] MEDS: CITALOPRAM HYDROBROMIDE 20 MG TABLET (FP) PO SCH (10:23)
[2016-11-20] MEDS: PANTOPRAZOLE 40 MG TABLET (FP) PO SCH (10:23)
[2016-11-20] MEDS: FLUTICASONE PROP 0.05% 16 GM NASAL SPRAY NS SCH (10:23)
[2016-11-20] MEDS: amLODIPine BESYLATE 10 MG TABLET (FP) PO SCH (10:24)
[2016-11-20] MEDS: NAPROXEN 500 MG TABLET (FP) PO SCH ×2 (10:24→21:34)
[2016-11-20] MEDS: guaiFENesin/D-METHORPHAN HB 1 EACH TAB.ER.12H PO SCH ×2 (10:24→21:35)
[2016-11-20] MEDS: NICOTINE 21 MG/24 HOURS TOPICAL PATCH TD SCH (10:24)
[2016-11-20] MEDS: PRENATAL VITAMINS W/ FOLIC ACID TABLET (FP) PO SCH (10:24)
[2016-11-20 10:30] LABS: BASOPHIL 0.5 % (0-2.0); MCH 26.6 pg (25.7-33.7); MCHC 32.1 g/dl (32.0-35.9); MEAN CELL VOLUME 82.9 fl (80-96); MEAN PLT VOLUME 9.5 fl (7.5-11.1); NEUTROPHILS 66.1 % (42.8-82.8); PLATELET COUNT 452 K/MM3 (134-434); RDW 15.8 % (11.9-15.9); WHITE BLOOD COUNT 7.9 K/mm3 (4.0-10.0)
[2016-11-20] MEDS: cloNIDine HCL 0.1 MG TABLET PO SCH ×2 (14:08→21:35)
[2016-11-20] MEDS: ATORVASTATIN CA 10 MG TABLET (FP) PO SCH (21:34)
[2016-11-20] MEDS: THIAMINE HCL 100 MG TABLET (FP) PO SCH (21:34)
[2016-11-20] MEDS: QUEtiapine FUMARATE 100 MG TABLET (FP) PO SCH (21:34)
[2016-11-21] MEDS: diphenhydrAMINE HCL 50 MG CAPSULE PO PRN (01:18)
[2016-11-21] MEDS: GABAPENTIN 300 MG CAPSULE (FP) PO SCH ×3 (06:37→21:45)
[2016-11-21] MEDS: hydrOXYzine HCL 25 MG TABLET (FP) PO SCH ×3 (06:37→21:45)
[2016-11-21] MEDS: guaiFENesin/D-METHORPHAN HB 1 EACH TAB.ER.12H PO SCH ×2 (10:34→21:46)
[2016-11-21] MEDS: NAPROXEN 500 MG TABLET (FP) PO SCH ×2 (10:35→21:45)
[2016-11-21] MEDS: FLUTICASONE PROP 0.05% 16 GM NASAL SPRAY NS SCH (10:36)
[2016-11-21] MEDS: buPROPion HCL 100 MG TABLET PO SCH (10:37)
[2016-11-21] MEDS: amLODIPine BESYLATE 10 MG TABLET (FP) PO SCH (10:37)
[2016-11-21] MEDS: cloNIDine HCL 0.1 MG TABLET PO SCH ×2 (10:37→21:46)
[2016-11-21] MEDS: CITALOPRAM HYDROBROMIDE 20 MG TABLET (FP) PO SCH (10:37)
[2016-11-21] MEDS: PANTOPRAZOLE 40 MG TABLET (FP) PO SCH (10:37)
[2016-11-21] MEDS: PRENATAL VITAMINS W/ FOLIC ACID TABLET (FP) PO SCH (10:37)
[2016-11-21] MEDS: NICOTINE 21 MG/24 HOURS TOPICAL PATCH TD SCH (10:37)
[2016-11-21] MEDS: QUEtiapine FUMARATE 100 MG TABLET (FP) PO SCH (21:45)
[2016-11-21] MEDS: ATORVASTATIN CA 10 MG TABLET (FP) PO SCH (21:45)
[2016-11-21] MEDS: THIAMINE HCL 100 MG TABLET (FP) PO SCH (21:45)
[2016-11-22] MEDS: GABAPENTIN 300 MG CAPSULE (FP) PO SCH ×3 (06:36→21:31)
[2016-11-22] MEDS: hydrOXYzine HCL 25 MG TABLET (FP) PO SCH ×3 (06:36→21:31)
[2016-11-22] MEDS: CITALOPRAM HYDROBROMIDE 20 MG TABLET (FP) PO SCH (09:33)
[2016-11-22] MEDS: buPROPion HCL 100 MG TABLET PO SCH (09:33)
[2016-11-22] MEDS: NICOTINE 21 MG/24 HOURS TOPICAL PATCH TD SCH (09:33)
[2016-11-22] MEDS: NAPROXEN 500 MG TABLET (FP) PO SCH ×2 (09:33→21:33)
[2016-11-22] MEDS: amLODIPine BESYLATE 10 MG TABLET (FP) PO SCH (09:33)
[2016-11-22] MEDS: cloNIDine HCL 0.1 MG TABLET PO SCH ×2 (09:33→21:32)
[2016-11-22] MEDS: PANTOPRAZOLE 40 MG TABLET (FP) PO SCH (09:34)
[2016-11-22] MEDS: PRENATAL VITAMINS W/ FOLIC ACID TABLET (FP) PO SCH (09:34)
[2016-11-22] MEDS: guaiFENesin/D-METHORPHAN HB 1 EACH TAB.ER.12H PO SCH ×2 (09:36→21:32)
[2016-11-22] MEDS: FLUTICASONE PROP 0.05% 16 GM NASAL SPRAY NS SCH (09:36)
[2016-11-22] MEDS: ALBUTEROL SO4 6.7 GM HFA INHALER IH PRN ×2 (09:36→21:33)
[2016-11-22] MEDS: QUEtiapine FUMARATE 100 MG TABLET (FP) PO SCH (21:31)
[2016-11-22] MEDS: ATORVASTATIN CA 10 MG TABLET (FP) PO SCH (21:31)
[2016-11-22] MEDS: THIAMINE HCL 100 MG TABLET (FP) PO SCH (21:31)
[2016-11-23] MEDS: hydrOXYzine HCL 25 MG TABLET (FP) PO SCH ×3 (06:47→21:28)
[2016-11-23] MEDS: GABAPENTIN 300 MG CAPSULE (FP) PO SCH ×3 (06:48→21:29)
[2016-11-23] MEDS: ALBUTEROL SO4 6.7 GM HFA INHALER IH PRN (06:49)
[2016-11-23] MEDS: CITALOPRAM HYDROBROMIDE 20 MG TABLET (FP) PO SCH (10:31)
[2016-11-23] MEDS: cloNIDine HCL 0.1 MG TABLET PO SCH ×2 (10:31→21:29)
[2016-11-23] MEDS: buPROPion HCL 100 MG TABLET PO SCH (10:31)
[2016-11-23] MEDS: PANTOPRAZOLE 40 MG TABLET (FP) PO SCH (10:31)
[2016-11-23] MEDS: amLODIPine BESYLATE 10 MG TABLET (FP) PO SCH (10:31)
[2016-11-23] MEDS: PRENATAL VITAMINS W/ FOLIC ACID TABLET (FP) PO SCH (10:31)
[2016-11-23] MEDS: FLUTICASONE PROP 0.05% 16 GM NASAL SPRAY NS SCH (10:32)
[2016-11-23] MEDS: NAPROXEN 500 MG TABLET (FP) PO SCH ×2 (10:33→21:28)
[2016-11-23] MEDS: SIMETHICONE 80 MG TAB.CHEW (FP) PO PRN (10:35)
[2016-11-23] MEDS: NICOTINE 21 MG/24 HOURS TOPICAL PATCH TD SCH (10:36)
[2016-11-23] MEDS: guaiFENesin/D-METHORPHAN HB 1 EACH TAB.ER.12H PO SCH ×2 (10:36→21:29)
[2016-11-23] MEDS: THIAMINE HCL 100 MG TABLET (FP) PO SCH (21:28)
[2016-11-23] MEDS: QUEtiapine FUMARATE 100 MG TABLET (FP) PO SCH (21:29)
[2016-11-23] MEDS: ATORVASTATIN CA 10 MG TABLET (FP) PO SCH (21:29)
[2016-11-24] MEDS: GABAPENTIN 300 MG CAPSULE (FP) PO SCH ×4 (06:20→21:40)
[2016-11-24] MEDS: hydrOXYzine HCL 25 MG TABLET (FP) PO SCH ×3 (06:20→21:38)
[2016-11-24] MEDS: ALBUTEROL SO4 6.7 GM HFA INHALER IH PRN ×2 (06:21→21:42)
[2016-11-24] MEDS: guaiFENesin/D-METHORPHAN HB 1 EACH TAB.ER.12H PO SCH ×2 (10:16→22:19)
[2016-11-24] MEDS: cloNIDine HCL 0.1 MG TABLET PO SCH ×2 (10:16→21:38)
[2016-11-24] MEDS: FLUTICASONE PROP 0.05% 16 GM NASAL SPRAY NS SCH (10:16)
[2016-11-24] MEDS: CITALOPRAM HYDROBROMIDE 20 MG TABLET (FP) PO SCH (10:16)
[2016-11-24] MEDS: NICOTINE 21 MG/24 HOURS TOPICAL PATCH TD SCH (10:17)
[2016-11-24] MEDS: NAPROXEN 500 MG TABLET (FP) PO SCH (10:17)
[2016-11-24] MEDS: PRENATAL VITAMINS W/ FOLIC ACID TABLET (FP) PO SCH (10:19)
[2016-11-24] MEDS: PANTOPRAZOLE 40 MG TABLET (FP) PO SCH (10:20)
[2016-11-24] MEDS: buPROPion HCL 100 MG TABLET PO SCH (10:20)
[2016-11-24] MEDS: amLODIPine BESYLATE 10 MG TABLET (FP) PO SCH (10:20)
[2016-11-24] MEDS: SIMETHICONE 80 MG TAB.CHEW (FP) PO PRN ×2 (12:57→17:22)
--- NOTE | 2016-11-24 15:31 | PN ---
Psychiatric Progress Note Vital Signs: Vital Signs Period Temp Pulse Resp BP Sys/Littlejohn Pulse Ox Last 24 Hr 99.6 F 80 18-18 129/79 Date of Session: 11/24/16 Chief Complaint:: progress update HPI: Patient addressing Cocaine, Nicotine comorbid Schizoaffective disorder. ROS: WNL Current Medications: Active Medications Generic Name Dose Route Start Last Admin Trade Name Freq PRN Reason Stop Dose Admin Acetaminophen 650 mg 11/15/16 17:06 11/19/16 14:16 Tylenol - PO 650 mg Q4H PRN Administration FEVER OR PAIN Al Hydroxide/Mg Hydroxide 30 ml 11/15/16 17:06 11/16/16 13:59 Mylanta Oral Suspension - PO 30 ml Q6H PRN Administration DYSPEPSIA Albuterol Sulfate 2 puff 11/15/16 17:07 11/24/16 06:21 Ventolin Hfa Inhaler - IH 2 puff Q4H PRN Administration ASTHMA Amlodipine Besylate 10 mg 11/16/16 10:00 11/24/16 10:20 Norvasc - PO 10 mg DAILY SEVEN Administration Atorvastatin Calcium 10 mg 11/15/16 22:00 11/23/16 21:29 Lipitor - PO 10 mg HS SEVEN Administration Bupropion HCl 100 mg 11/17/16 10:00 11/24/16 10:20 Wellbutrin - PO 100 mg DAILY SEVEN Administration Citalopram Hydrobromide 20 mg 11/16/16 10:00 11/24/16 10:16 Celexa - PO 20 mg DAILY SEVEN Administration Clonidine 0.1 mg 11/20/16 13:45 11/24/16 10:16 Catapres - PO 0.1 mg BID SEVEN Administration Diphenhydramine HCl 50 mg 11/15/16 17:06 11/21/16 01:18 Benadryl - PO 50 mg HSMR1 PRN Administration FOR ITCHING Eucalyptus/Menthol/Phenol/Sorbitol 1 each 11/15/16 17:06 11/18/16 22:02 Cepastat Lozenge - MM 1 each Q4H PRN Administration SORE THROAT Fluticasone Propionate 2 spray 11/19/16 14:45 11/24/16 10:16 Flonase - NS 2 sprays DAILY SEVEN Administration Gabapentin 300 mg 11/17/16 14:00 11/24/16 14:23 Neurontin - PO 300 mg TID SEVEN Administration Guaifenesin 2 tablet 11/19/16 22:00 11/24/16 10:16 Mucinex Dm - PO 2 tablet BID SEVEN Administration Hydroxyzine HCl 25 mg 11/16/16 22:00 11/24/16 14:23 Atarax - PO 25 mg TID SEVEN Administration Loperamide HCl 4 mg 11/15/16 17:06 Imodium - PO Q6H PRN DIARRHEA Magnesium Hydroxide 30 ml 11/15/16 17:06 Milk Of Magnesia - PO DAILY PRN CONSTIPATION Nicotine 21 mg 11/16/16 10:00 11/24/16 10:17 Nicoderm Patch - TD 21 mg DAILY SEVEN Administration Nicotine Polacrilex 2 mg 11/15/16 17:06 Nicorette Gum - BUC Q2H PRN NICOTINE REPLACEMENT RX Pantoprazole Sodium 40 mg 11/16/16 10:45 11/24/16 10:20 Protonix - PO 40 mg DAILY SEVEN Administration Multivit/Folic Acid/Iron 1 tab 11/16/16 10:00 11/24/16 10:19 Vitamins (Sjr) - PO 1 tab DAILY SEVEN Administration Quetiapine Fumarate 100 mg 11/16/16 22:00 11/23/16 21:29 Seroquel - PO 100 mg HS [facility] Administration Simethicone 80 mg 11/19/16 14:37 11/24/16 12:57 Mylicon - PO 80 mg Q4H PRN Administration INDIGESTION Thiamine HCl 100 mg 11/15/16 22:00 11/23/16 21:28 Vitamin B1 - PO Not Given HS [facility] Current Side Effect: No Lab tests ordered: No Lab tests reviewed: Yes Provider note:: Patient reports having mood swings , difficulty to control his anger, "being unstable", irritable, reports he does not like the way he feels, easilly aggravated for no reason, restless, as well as was reported by the staff that patient about the incident in evening shift when became angry and irritable with NA when she was trying to locate the laundry detergent and security was called to the floor, processed this with the patient. Revewed medicatiois with the patient, discussed indications and properties each of his medications, will d/c Wellbutrin, increase Gabapentin 600 mh po tid, counseling and supportive therapy provided, continue to monitor progress as needed. Total face to face time:: 35 Mental Status Exam - Mental Status Exam Alert and Oriented to: Time, Place, Person Cognitive Function: Good Patient Appearance: Well Groomed Mood: Depressed, Sad, Anxious Affect: Appropriate, Mood Congruent Patient Behavior: Restless, Appropriate, Cooperative Speech Pattern: Appropriate Voice Loudness: Normal Thought Process: Flight of Ideas Thought Disorder: Not Present Hallucinations: Denies Suicidal Ideation: Denies Homicidal Ideation: Denies Insight/Judgement: Fair Sleep: Fair Appetite: Fair Muscle strength/Tone: Normal Gait/Station: Normal Psychiatric Treatment Plan - Problem List (1) Schizoaffective disorder Current Visit: No (2) Nicotine dependence Current Visit: No Qualifiers: Nicotine product type: cigarettes Substance use status: in withdrawal Qualified Code(s): F17.213 - Nicotine dependence, cigarettes, with withdrawal (3) Cannabis dependence Current Visit: Yes (4) Cocaine dependence Current Visit: Yes
[2016-11-24] MEDS: THIAMINE HCL 100 MG TABLET (FP) PO SCH (21:37)
[2016-11-24] MEDS: SUVOREXANT 10 MG TABLET PO SCH (21:38)
[2016-11-24] MEDS: QUEtiapine FUMARATE 100 MG TABLET (FP) PO SCH (21:38)
[2016-11-24] MEDS: ATORVASTATIN CA 10 MG TABLET (FP) PO SCH (21:38)
[2016-11-25] MEDS: hydrOXYzine HCL 25 MG TABLET (FP) PO SCH ×3 (06:23→21:51)
[2016-11-25] MEDS: GABAPENTIN 300 MG CAPSULE (FP) PO SCH ×3 (06:23→21:51)
[2016-11-25] MEDS: ALBUTEROL SO4 6.7 GM HFA INHALER IH PRN (06:56)
[2016-11-25 07:03] VITALS: TEMP 97.2
[2016-11-25] MEDS: PRENATAL VITAMINS W/ FOLIC ACID TABLET (FP) PO SCH (09:58)
[2016-11-25] MEDS: amLODIPine BESYLATE 10 MG TABLET (FP) PO SCH (09:59)
[2016-11-25] MEDS: PANTOPRAZOLE 40 MG TABLET (FP) PO SCH (09:59)
[2016-11-25] MEDS: CITALOPRAM HYDROBROMIDE 20 MG TABLET (FP) PO SCH (09:59)
[2016-11-25] MEDS: FLUTICASONE PROP 0.05% 16 GM NASAL SPRAY NS SCH (09:59)
[2016-11-25] MEDS: cloNIDine HCL 0.1 MG TABLET PO SCH ×2 (09:59→21:51)
[2016-11-25] MEDS: NICOTINE 21 MG/24 HOURS TOPICAL PATCH TD SCH (10:00)
[2016-11-25] MEDS: guaiFENesin/D-METHORPHAN HB 1 EACH TAB.ER.12H PO SCH ×2 (10:00→21:51)
[2016-11-25] MEDS: SIMETHICONE 80 MG TAB.CHEW (FP) PO PRN ×2 (10:02→14:59)
[2016-11-25] MEDS: MENTHOL/PHENOL 1 EACH UD MM PRN (14:59)
[2016-11-25] MEDS: MAG HYDROX/AL HYDROX/SIMETH 30 ML UNIT-DOSE CUP PO PRN (16:49)
[2016-11-25] MEDS: ATORVASTATIN CA 10 MG TABLET (FP) PO SCH (21:51)
[2016-11-25] MEDS: QUEtiapine FUMARATE 100 MG TABLET (FP) PO SCH (21:51)
[2016-11-25] MEDS: THIAMINE HCL 100 MG TABLET (FP) PO SCH (21:51)
[2016-11-25] MEDS: SUVOREXANT 10 MG TABLET PO SCH (21:52)
[2016-11-25 22:35] VITALS: BP 129/75; PULSE 72
[2016-11-26] MEDS: GABAPENTIN 300 MG CAPSULE (FP) PO SCH (06:46)
[2016-11-26] MEDS: hydrOXYzine HCL 25 MG TABLET (FP) PO SCH (06:46)
[2016-11-26] MEDS: PANTOPRAZOLE 40 MG TABLET (FP) PO SCH (09:20)
[2016-11-26] MEDS: CITALOPRAM HYDROBROMIDE 20 MG TABLET (FP) PO SCH (09:20)
[2016-11-26] MEDS: amLODIPine BESYLATE 10 MG TABLET (FP) PO SCH (09:20)
[2016-11-26] MEDS: PRENATAL VITAMINS W/ FOLIC ACID TABLET (FP) PO SCH (09:21)
--- NOTE | 2016-11-26 09:21 | PN ---
Psychiatric Progress Note Vital Signs: Vital Signs Period Temp Pulse Resp BP Sys/Littlejohn Pulse Ox Last 24 Hr 72-104 18-18 129-143/75-86 Date of Session: 11/26/16 Chief Complaint:: discharge visit HPI: Patient has addressed cocaine, cannabis, nicotine dependence comorbid Schizoaffective disorder. ROS: Asthma, GERD medically managed and Bear Parkinson White Syndrome. Current Medications: Active Medications Generic Name Dose Route Start Last Admin Trade Name Freq PRN Reason Stop Dose Admin Acetaminophen 650 mg 11/15/16 17:06 11/19/16 14:16 Tylenol - PO 650 mg Q4H PRN Administration FEVER OR PAIN Al Hydroxide/Mg Hydroxide 30 ml 11/15/16 17:06 11/25/16 16:49 Mylanta Oral Suspension - PO 30 ml Q6H PRN Administration DYSPEPSIA Albuterol Sulfate 2 puff 11/15/16 17:07 11/25/16 06:56 Ventolin Hfa Inhaler - IH 2 puff Q4H PRN Administration ASTHMA Amlodipine Besylate 10 mg 11/16/16 10:00 11/25/16 09:59 Norvasc - PO 10 mg DAILY SEVEN Administration Atorvastatin Calcium 10 mg 11/15/16 22:00 11/25/16 21:51 Lipitor - PO 10 mg HS SEVEN Administration Citalopram Hydrobromide 20 mg 11/16/16 10:00 11/25/16 09:59 Celexa - PO 20 mg DAILY SEVEN Administration Clonidine 0.1 mg 11/20/16 13:45 11/25/16 21:51 Catapres - PO 0.1 mg BID SEVEN Administration Diphenhydramine HCl 50 mg 11/15/16 17:06 11/21/16 01:18 Benadryl - PO 50 mg HSMR1 PRN Administration FOR ITCHING Eucalyptus/Menthol/Phenol/Sorbitol 1 each 11/15/16 17:06 11/25/16 14:59 Cepastat Lozenge - MM 1 each Q4H PRN Administration SORE THROAT Fluticasone Propionate 2 spray 11/19/16 14:45 11/25/16 09:59 Flonase - NS 2 sprays DAILY SEVEN Administration Gabapentin 600 mg 11/24/16 16:15 11/26/16 06:46 Neurontin - PO 600 mg TID SEVEN Administration Guaifenesin 2 tablet 11/19/16 22:00 11/25/16 21:51 Mucinex Dm - PO 2 tablet BID SEVEN Administration Hydroxyzine HCl 25 mg 11/16/16 22:00 11/26/16 06:46 Atarax - PO 25 mg TID SEVEN Administration Loperamide HCl 4 mg 11/15/16 17:06 Imodium - PO Q6H PRN DIARRHEA Magnesium Hydroxide 30 ml 11/15/16 17:06 Milk Of Magnesia - PO DAILY PRN CONSTIPATION Nicotine 21 mg 11/16/16 10:00 11/25/16 10:00 Nicoderm Patch - TD 21 mg DAILY SEVEN Administration Nicotine Polacrilex 2 mg 11/15/16 17:06 Nicorette Gum - BUC Q2H PRN NICOTINE REPLACEMENT RX Pantoprazole Sodium 40 mg 11/16/16 10:45 11/25/16 09:59 Protonix - PO 40 mg DAILY SEVEN Administration Multivit/Folic Acid/Iron 1 tab 11/16/16 10:00 11/25/16 09:58 Vitamins (Sjr) - PO 1 tab DAILY SEVEN Administration Quetiapine Fumarate 100 mg 11/16/16 22:00 11/25/16 21:51 Seroquel - PO 100 mg HS SEVEN Administration Simethicone 80 mg 11/19/16 14:37 11/25/16 14:59 Mylicon - PO 80 mg Q4H PRN Administration INDIGESTION Thiamine HCl 100 mg 11/15/16 22:00 11/25/16 21:51 Vitamin B1 - PO 100 mg HS SEVEN Administration Current Side Effect: No Lab tests ordered: No Lab tests reviewed: Yes Provider note:: Patient has completed today his treatment and met his goals, will continue to address his issues at [facility] outpatient treatment program. Patient gained insights into importance of changing attitudes/behavior for the utilization of supports to prevent relapses. Patient responded well to medications management, medications well tolerated, patient feels less anxious, sleep habits improved and mood is stable, no side-effects reported, scripts provided for 30 days, patient is stable for d/c today. Total face to face time:: 25 Mental Status Exam - Mental Status Exam Alert and Oriented to: Time, Place, Person Cognitive Function: Good Patient Appearance: Well Groomed Mood: Hopeful Affect: Appropriate, Mood Congruent Patient Behavior: Appropriate, Cooperative Speech Pattern: Clear, Appropriate Voice Loudness: Normal Thought Process: Goal Oriented Thought Disorder: Not Present Hallucinations: Denies Suicidal Ideation: Denies Homicidal Ideation: Denies Insight/Judgement: Fair Sleep: Fair Appetite: Fair Muscle strength/Tone: Normal Gait/Station: Normal Psychiatric Treatment Plan - Problem List (2) Nicotine dependence Qualifiers: Nicotine product type: cigarettes Substance use status: in withdrawal Qualified Code(s): F17.213 - Nicotine dependence, cigarettes, with withdrawal
[2016-11-26] MEDS: cloNIDine HCL 0.1 MG TABLET PO SCH (09:22)
[2016-11-26] MEDS: guaiFENesin/D-METHORPHAN HB 1 EACH TAB.ER.12H PO SCH (09:22)
[2016-11-26] MEDS: FLUTICASONE PROP 0.05% 16 GM NASAL SPRAY NS SCH (09:22)
[2016-11-26] MEDS: NICOTINE 21 MG/24 HOURS TOPICAL PATCH TD SCH (09:22)
== END 2016-11-26 09:50 | disposition home or self-care (01) | DRG 772 ==
LOC: YASAS 15:24 → Y5N 15:25
PROVIDERS: ADMIT Psychiatry & Neurology Psychiatry; ATTEND Psychiatry & Neurology Psychiatry
PROC: HZ42ZZZ Group Counseling for Substance Abuse Treatment, Cognitive-Behavioral (ICD-10-PCS; principal; 2016-11-15)
DX: F14.20 Cocaine dependence, uncomplicated (principal); F12.20 Cannabis dependence, uncomplicated; F17.213 Nicotine dependence, cigarettes, with withdrawal; F25.9 Schizoaffective disorder, unspecified
CPT/HCPCS: 36415; 85025

== ENCOUNTER 2017-06-16 12:35 | Inpatient (IN) | payer OTHER ==
[2017-06-16 14:26] VITALS: BMI 19.8
--- NOTE | 2017-06-16 16:24 | HP ---
CIWA Score - CIWA Score Nausea/Vomitin Muscle Tremors: 1-None Visible, but [place] Anxiety: 2 Agitation: 1-Slight > Activity Paroxysmal Sweats: 2 Orientation: 0-Oriented Tacttile Disturbances: 2-Mild Itch/Numbness/Burn Auditory Disturbances: 0-None Visual Disturbances: 0-None Headache: 2-Mild CIWA-Ar Total Score: 12 Admission ROS S - HPI Chief Complaint: ETOH withdrawal symptoms. Allergies/Adverse Reactions: Allergies Allergy/AdvReac Type Severity Reaction Status Date / Time shellfish derived Allergy Severe Itching Verified 06/16/17 14:27 No Known Drug Allergies Allergy Verified 06/16/17 14:27 History of Present Illness: Pt presents with ETOH withdrawal symptoms. Pt started drinking at age 5-6 years old. Drinks 1 pint of Vodka and 1 pack of beer daily. Last drink this morning. Pt denies seizures from ETOH use/withdrawal. Also smokes marajuana and crack cocaine. Smokes up to 1 gram of cocaine daily. Last time he smoked was last night. Also participates in [facility] [employer] and reports dose of Methadone at 100mg. Was dosed today. Has hx of asthma, HTN and WWP syndrome. Last attempt at detox was here at [facility] in 10/2016. Exam Limitations: No Limitations - Ebola screening Have you traveled outside of the country in the last 21 days: No Have you had contact with anyone from an Ebola affected area: No Have you been sick,other than usual withdrawal symptoms: No Do you have a fever: No - Review of Systems Constitutional: Night Sweats, Changes in sleep, Unexplained wgt Loss EENT: reports: Nose Congestion Respiratory: reports: Cough Cardiac: reports: Chest Tightness GI: reports: Nausea, Poor Appetite, Poor Fluid Intake, Vomiting, Abdominal cramping : reports: No Symptoms Reported Musculoskeletal: reports: Back Pain, Joint Pain, Muscle Pain Integumentary: reports: Sweating Neuro: reports: Numbness, Tingling, Tremors Endocrine: reports: Unexplained Weight Loss Hematology: reports: Anemia Psychiatric: reports: Orientated x3, Anxious, Depressed Patient History - Patient Medical History Hx Anemia: No Hx Asthma: Yes Hx Chronic Obstructive Pulmonary Disease (COPD): No Hx Cancer: No Hx Cardiac Disorders: Yes (Parkinson's White Disorder dx ) Hx Congestive Heart Failure: No Hx Hypertension: Yes Hx Hypercholesterolemia: No Hx Pacemaker: No HX Cerebrovascular Accident: No Hx Seizures: No Hx Dementia: No Hx Diabetes: No Hx Gastrointestinal Disorders: No Hx Liver Disease: No Hx Genitourinary Disorders: No Hx Sexually Transmitted Disorders: No Hx Renal Disease (ESRD): No Hx Thyroid Disease: No Hx Human Immunodeficiency Virus (HIV): No (neg - 10/02/15) Hx Hepatitis C: No Hx Depression: Yes Hx Suicide Attempt: Yes (attempted suicide in 2014 while incarcerated) Hx Bipolar Disorder: Yes Hx Schizophrenia: No - Patient Surgical History Past Surgical History: No Hx Neurologic Surgery: No Hx Cataract Extraction: No Hx Cardiac Surgery: No Hx Lung Surgery: No Hx Breast Surgery: No Hx Breast Biopsy: No Hx Abdominal Surgery: No Hx Appendectomy: No Hx Cholecystectomy: No Hx Genitourinary Surgery: No Hx Section: No Hx Orthopedic Surgery: No Anesthesia Reaction: No - PPD History Previous Implant?: Yes Documented Results: Negative w/proof Implanted On Prior [facility] Admission?: Yes Date: 11/12/16 Results: 0 mm - Smoking Cessation Smoking history: Current every day smoker Have you smoked in the past 12 months: Yes Aproximately how many cigarettes per day: 15 Cigars Per Day: 0 Hx Chewing Tobacco Use: No Initiated information on smoking cessation: Yes 'Breaking Loose' booklet given: 06/16/17 - Substance & Tx. History Hx Alcohol Use: Yes Hx Substance Use: Yes Substance Use Type: Cocaine, Marijuana, Opiates Hx Substance Use Treatment: Yes - Substances Abused Alcohol Route: Oral Frequency: Daily Amount used: 1/2 -1 pints of Vodka 6 pk 25oz beer Age of first use: 13 Date of Last Use: 06/16/17 Cocaine Route: Smoking Frequency: Daily Amount used: $50 Age of first use: 17 Date of Last Use: 06/15/17 Marijuana/Hashish Route: Smoking Frequency: Daily Amount used: $5 Age of first use: 9 Date of Last Use: 06/15/17 K2 Route: Smoking Frequency: Daily Amount used: $10 Age of first use: 40 Date of Last Use: 06/16/17 Family Disease History - Family Disease History Family Disease History: Diabetes: Grandparent, Other: Father (NO CONTACT), Mother (NO CONTACT), Brother (NO CONTACT), Sister (NO CONTACT) Admission Physical Exam BHS - Vital Signs Vital Signs: Vital Signs - 24 hr 06/16/17 14:24 Temperature 96.6 F L Pulse Rate 61 Respiratory 20 Rate Blood Pressure 125/78 - Physical General Appearance: Yes: Appropriately Dressed, Thin, Sweating HEENTM: Yes: EOMI, Hearing grossly Normal, Normal Voice, ISAÍAS, Pharynx Normal Respiratory: Yes: Chest Non-Tender, No Respiratory Distress, No Accessory Muscle Use, Wheezing Neck: Yes: No masses,lesions,Nodules, Supple Breast: Yes: Breast Exam Deferred Cardiology: Yes: Regular Rhythm, Regular Rate, S1, S2 Abdominal: Yes: Normal Bowel Sounds, Flat, Soft Genitourinary: Yes: Within Normal Limits Back: Yes: Muscle Spasm Musculoskeletal: Yes: Gait Steady, Back pain, Muscle Pain Extremities: Yes: Within Normal Limits, Normal Inspection Neurological: Yes: foreign clerk II-XII NML intact, Fully Oriented, Alert, Depressed Affect Integumentary: Yes: Normal Color, Warm, Moist Lymphatic: Yes: Within Normal Limits - Diagnostic (1) HTN (hypertension) Current Visit: Yes Status: Acute Qualifiers: Hypertension type: unspecified Qualified Code(s): I10 - Essential (primary ) hypertension (2) Cannabis dependence Current Visit: Yes Status: Acute (3) Cocaine dependence Current Visit: Yes Status: Acute Qualifiers: Substance use status: with unspecified cocaine-induced disorder Qualified Code(s): F14.29 - Cocaine dependence with unspecified cocaine-induced disorder (4) Schizoaffective disorder Current Visit: Yes Status: Acute (5) Weight loss Current Visit: Yes Status: Acute (6) Alcohol dependence with uncomplicated withdrawal Current Visit: Yes Status: Chronic (7) Asthma Current Visit: Yes Status: Chronic Qualifiers: Asthma severity: unspecified severity Asthma complication type: unspecified Cleared for Admission [facility] - Detox or Rehab [facility] Level of Care: Medically Managed Detox Regimen/Protocol: Librium [facility] Breath Alcohol Content Breath Alcohol Content: 0 Urine Drug Screen - Results Drug Screen Negative: No Urine Drug Screen Results: THC-Marijuana, GERARD-Cocaine, MTD-Methadone Inpatient Rehab Admission - Initial Determination Are CD services needed?: Yes Free of communicable disease: Yes Not in need of hospitalization: Yes - Rehab Admission Criteria Previous failed treatment: Yes Poor recovery environment: Yes Comorbidities: Yes Lacks judgement: Yes
[2017-06-16] MEDS ORDERED: LOPERAMIDE HCL 2 MG CAPSULE PO PRN (16:35)
[2017-06-16] MEDS ORDERED: IBUPROFEN 400 MG TABLET (FP) PO PRN (16:35)
[2017-06-16] MEDS ORDERED: MENTHOL/PHENOL 1 EACH UD MM PRN (16:35)
[2017-06-16] MEDS ORDERED: MAGNESIUM HYDROX 2400MG/30ML ORAL SUSPENSION 30 ML CUP PO PRN (16:35)
[2017-06-16] MEDS ORDERED: MAG HYDROX/AL HYDROX/SIMETH 30 ML UNIT-DOSE CUP PO PRN (16:35)
[2017-06-16] MEDS ORDERED: NICOTINE POLACRILEX 2 MG GUM BC PRN (16:35)
[2017-06-16] MEDS ORDERED: MAGNESIUM CITRATE 300 ML BOTTLE PO PRN (16:35)
[2017-06-16] MEDS ORDERED: hydrOXYzine PAMOATE 50 MG CAPSULE (FP) PO PRN (16:35)
[2017-06-16] MEDS ORDERED: guaiFENesin/D-METHORPHAN HB 10 ML UNIT-DOSE CUPS PO PRN (16:35)
[2017-06-16] MEDS ORDERED: P-EPHED 60MG/TRIPROLIDI 2.5MG TABLET PO PRN (16:35)
[2017-06-16] MEDS ORDERED: chlordiazePOXIDE HCL 25 MG CAPSULE PO ONE (17:30)
[2017-06-16] MEDS: chlordiazePOXIDE HCL 25 MG CAPSULE PO SCH ×2 (17:42→23:03)
[2017-06-16] MEDS ORDERED: MELATONIN 5 MG TABLETS PO PRN (22:00)
[2017-06-16] MEDS: THIAMINE HCL 100 MG TABLET (FP) PO SCH (23:03)
[2017-06-16 23:04] LABS: URINE APPEARANCE CLOUDY; URINE BILIRUBIN NEGATIVE (<2.0 mg/dL); URINE BLOOD NEGATIVE (NEGATIVE); URINE COLOR DKYELLOW; URINE GLUCOSE (UA) NEGATIVE (NEGATIVE); URINE KETONE NEGATIVE (NEGATIVE); URINE LEUK ESTERASE NEGATIVE (NEGATIVE); URINE NITRITE NEGATIVE (NEGATIVE); URINE PROTEIN NEGATIVE (NEGATIVE); URINE UROBILINOGEN NEGATIVE mg/dL (0.2-1.0)
[2017-06-17] MEDS: chlordiazePOXIDE HCL 25 MG CAPSULE PO SCH ×4 (05:18→22:05)
[2017-06-17] MEDS: ALBUTEROL SO4 18 GM HFA INHALER IH PRN ×2 (08:49→22:06)
[2017-06-17] MEDS ORDERED: METHADONE HCL 10 MG TABLET PO SCH (09:45)
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
[2017-06-17] MEDS ORDERED: METHADONE HCL 10 MG TABLET ONE (10:36)
[2017-06-17] MEDS ORDERED: METHADONE HCL 40 MG DISPERSABLE TABLET ONE (10:37)
[2017-06-17] MEDS: PRENATAL VITAMINS W/ FOLIC ACID TABLET (FP) PO SCH (10:39)
[2017-06-17] MEDS: METHADONE 80 MG, METHADONE 20 MG PO SCH (10:39)
[2017-06-17] MEDS: amLODIPine BESYLATE 10 MG TABLET (FP) PO SCH (10:39)
[2017-06-17] MEDS: NICOTINE 21 MG/24 HOURS TOPICAL PATCH TD SCH (10:40)
[2017-06-17] MEDS: CITALOPRAM HYDROBROMIDE 20 MG TABLET (FP) PO SCH (10:40)
[2017-06-17 11:18] LABS: HEMATOCRIT 40.9 % (35.4-49); HEMOGLOBIN 13.2 GM/dL (11.7-16.9); MCH 25.5 pg (25.7-33.7); MCHC 32.3 g/dl (32.0-35.9); MEAN CELL VOLUME 78.8 fl (80-96); MEAN PLT VOLUME 8.5 fl (7.5-11.1); PLATELET COUNT 346 K/MM3 (134-434); RBC 5.19 M/mm3 (4.00-5.60); RDW 17.1 % (11.9-15.9); WHITE BLOOD COUNT 9.2 K/mm3 (4.0-10.0)
[2017-06-17 11:25] LABS: ALBUMIN 3.6 g/dl (3.4-5.0); ANION GAP 2 (8-16); BLOOD UREA NITROGEN 13 mg/dL (7-18); CALCIUM 9.1 mg/dL (8.5-10.1); CHLORIDE 105 mmol/L (98-107); CO2 33 mmol/L (21-32); GLUCOSE,RANDOM 79 mg/dL (74-106); POTASSIUM 5.1 mmol/L (3.5-5.1); SGOT/AST 15 U/L (15-37); SGPT/ALT 22 U/L (12-78); SODIUM 140 mmol/L (136-145); TOT PROT 6.7 g/dl (6.4-8.2)
--- NOTE | 2017-06-17 11:25 | EKG ---
Test Reason : Blood Pressure : / mmHG Vent. Rate : 059 BPM Atrial Rate : 059 BPM P-R Int : 132 ms QRS Dur : 098 ms QT Int : 434 ms P-R-T Axes : 074 057 075 degrees QTc Int : 429 ms SINUS BRADYCARDIA WITH PREMATURE SUPRAVENTRICULAR COMPLEXES OTHERWISE NORMAL ECG WHEN COMPARED WITH ECG OF 10-NOV-2016 19:17, PREMATURE SUPRAVENTRICULAR COMPLEXES ARE NOW PRESENT Confirmed by LIZ PITTMAN, PAULINE ([id number]) on 06/17/2017 11:25:27 AM Referred By: Confirmed By:PAULINE HILL MD
[2017-06-17 11:26] LABS: ALK PHOS 127 U/L (45-117)
[2017-06-17 11:27] LABS: BILIRUBIN,TOTAL < 0.1 mg/dL (0.2-1.0)
--- NOTE | 2017-06-17 13:29 | PN ---
[facility] CIWA - CIWA Score Nausea/Vomitin-No Nausea/No Vomiting Muscle Tremors: 3 Anxiety: 4-Mod. Anxious/Guarded Agitation: 1-Slight > Activity Paroxysmal Sweats: 3 Orientation: 0-Oriented Tacttile Disturbances: 0-None Auditory Disturbances: 2-Mild Harshness/Frighten Visual Disturbances: 0-None Headache: 4-Moderately Severe CIWA-Ar Total Score: 17 BHS Progress Note (SOAP) Subjective: Fatigue, H/A, Sweating, Poor Appetite. Objective: PATIENT A & O X 3, OBSERVED AMBULATING ON UNIT. NO ACUTE DISTRESS. 06/17/17 13:26 Vital Signs Temperature 97.7 F 06/17/17 13:23 Pulse Rate 69 06/17/17 13:23 Respiratory Rate 18 06/17/17 13:23 Blood Pressure 95/61 06/17/17 13:23 O2 Sat by Pulse Oximetry (%) Laboratory Tests 06/16/17 06/16/17 06/17/17 07:30 22:48 07:30 WBC 9.2 RBC 5.19 Hgb 13.2 Hct 40.9 MCV 78.8 L MCH 25.5 L MCHC 32.3 RDW 17.1 H Plt Count 346 D MPV 8.5 D Sodium Potassium Chloride Carbon Dioxide Anion Gap BUN Creatinine Creat Clearance w eGFR Random Glucose Calcium Total Bilirubin AST ALT Alkaline Phosphatase Total Protein Albumin Urine Color Dkyellow Urine Appearance Cloudy Urine pH 6.0 Ur Specific [place] 1.025 Urine Protein Negative Urine Glucose (UA) Negative Urine Ketones Negative Urine Blood Negative Urine Nitrite Negative Urine Bilirubin Negative Urine Urobilinogen Negative Ur Leukocyte Esterase Negative RPR Titer HIV 1&2 Antibody Screen Negative HIV P24 Antigen Negative 06/17/17 06/17/17 07:30 07:30 WBC RBC Hgb Hct MCV MCH MCHC RDW Plt Count MPV Sodium 140 Potassium 5.1 Chloride 105 Carbon Dioxide 33 H Anion Gap 2 L BUN 13 Creatinine 1.0 D Creat Clearance w eGFR > 60 Random Glucose 79 Calcium 9.1 Total Bilirubin < 0.1 L D AST 15 D ALT 22 D Alkaline Phosphatase 127 H D Total Protein 6.7 Albumin 3.6 Urine Color Urine Appearance Urine pH Ur Specific [place] Urine Protein Urine Glucose (UA) Urine Ketones Urine Blood Urine Nitrite Urine Bilirubin Urine Urobilinogen Ur Leukocyte Esterase RPR Titer Nonreactive HIV 1&2 Antibody Screen HIV P24 Antigen LABS NOTED. Assessment: 06/17/17 13:28 WITHDRAWAL SYMPTOMS. Plan: CONTINUE DETOX.
[2017-06-17] MEDS: ACETAMINOPHEN 325 MG TABLET (FP) PO PRN (17:36)
[2017-06-17] MEDS: ALBUTEROL SO4 2.5/IPRATROPIUM 0.5 INH SOL 3 ML VIAL.NEB. NEB PRN (17:36)
[2017-06-17] MEDS: chlordiazePOXIDE HCL 25 MG CAPSULE PO PRN (19:45)
[2017-06-17] MEDS: THIAMINE HCL 100 MG TABLET (FP) PO SCH (22:04)
[2017-06-17] MEDS: QUEtiapine FUMARATE 100 MG TABLET (FP) PO SCH (22:05)
[2017-06-18] MEDS ORDERED: METHADONE HCL 40 MG DISPERSABLE TABLET ONE (02:41)
[2017-06-18] MEDS ORDERED: METHADONE HCL 10 MG TABLET ONE (02:41)
[2017-06-18] MEDS: METHADONE 80 MG, METHADONE 20 MG PO SCH (05:54)
[2017-06-18] MEDS: chlordiazePOXIDE HCL 25 MG CAPSULE PO SCH ×2 (05:54→10:16)
[2017-06-18] MEDS: CITALOPRAM HYDROBROMIDE 20 MG TABLET (FP) PO SCH (10:15)
[2017-06-18] MEDS: NICOTINE 21 MG/24 HOURS TOPICAL PATCH TD SCH (10:16)
[2017-06-18] MEDS: PRENATAL VITAMINS W/ FOLIC ACID TABLET (FP) PO SCH (10:16)
[2017-06-18] MEDS: ALBUTEROL SO4 18 GM HFA INHALER IH PRN (10:16)
[2017-06-18] MEDS: amLODIPine BESYLATE 10 MG TABLET (FP) PO SCH (10:16)
--- NOTE | 2017-06-18 11:23 | PN ---
[facility] CIWA - CIWA Score Nausea/Vomitin-No Nausea/No Vomiting Muscle Tremors: None Anxiety: 4-Mod. Anxious/Guarded Agitation: 3 Paroxysmal Sweats: 3 Orientation: 0-Oriented Tacttile Disturbances: 2-Mild Itch/Numbness/Burn Auditory Disturbances: 0-None Visual Disturbances: 2-Mild Sensitivity Headache: 0-None Present CIWA-Ar Total Score: 14 BHS Progress Note (SOAP) Subjective: Sweating, Anxious, Fatigue. Objective: PATIENT A & O X 3, OBSERVED AMBULATING ON UNIT. NO ACUTE DISTRESS. 06/18/17 11:25 Vital Signs Temperature 97.1 F L 06/18/17 09:50 Pulse Rate 64 06/18/17 09:50 Respiratory Rate 20 06/18/17 09:50 Blood Pressure 90/61 06/18/17 09:50 O2 Sat by Pulse Oximetry (%) Laboratory Tests 06/16/17 06/16/17 06/17/17 07:30 22:48 07:30 WBC 9.2 RBC 5.19 Hgb 13.2 Hct 40.9 MCV 78.8 L MCH 25.5 L MCHC 32.3 RDW 17.1 H Plt Count 346 D MPV 8.5 D Sodium Potassium Chloride Carbon Dioxide Anion Gap BUN Creatinine Creat Clearance w eGFR Random Glucose Calcium Total Bilirubin AST ALT Alkaline Phosphatase Total Protein Albumin Urine Color Dkyellow Urine Appearance Cloudy Urine pH 6.0 Ur Specific [place] 1.025 Urine Protein Negative Urine Glucose (UA) Negative Urine Ketones Negative Urine Blood Negative Urine Nitrite Negative Urine Bilirubin Negative Urine Urobilinogen Negative Ur Leukocyte Esterase Negative RPR Titer HIV 1&2 Antibody Screen Negative HIV P24 Antigen Negative 06/17/17 06/17/17 07:30 07:30 WBC RBC Hgb Hct MCV MCH MCHC RDW Plt Count MPV Sodium 140 Potassium 5.1 Chloride 105 Carbon Dioxide 33 H Anion Gap 2 L BUN 13 Creatinine 1.0 D Creat Clearance w eGFR > 60 Random Glucose 79 Calcium 9.1 Total Bilirubin < 0.1 L D AST 15 D ALT 22 D Alkaline Phosphatase 127 H D Total Protein 6.7 Albumin 3.6 Urine Color Urine Appearance Urine pH Ur Specific [place] Urine Protein Urine Glucose (UA) Urine Ketones Urine Blood Urine Nitrite Urine Bilirubin Urine Urobilinogen Ur Leukocyte Esterase RPR Titer Nonreactive HIV 1&2 Antibody Screen HIV P24 Antigen LABS NOTED. Assessment: 06/18/17 11:26 WITHDRAWAL SYMPTOMS. Plan: CONTINUE DETOX. INCREASE DAILY PO FLUID INTAKE.
[2017-06-18] MEDS: chlordiazePOXIDE 5 MG CAPSULE PO SCH ×2 (17:43→22:07)
[2017-06-18] MEDS: chlordiazePOXIDE HCL 25 MG CAPSULE PO PRN (20:04)
[2017-06-18] MEDS: THIAMINE HCL 100 MG TABLET (FP) PO SCH (22:07)
[2017-06-18] MEDS: QUEtiapine FUMARATE 100 MG TABLET (FP) PO SCH (22:07)
[2017-06-18] MEDS: ACETAMINOPHEN 325 MG TABLET (FP) PO PRN (22:58)
[2017-06-18] MEDS: ALBUTEROL SO4 2.5/IPRATROPIUM 0.5 INH SOL 3 ML VIAL.NEB. NEB PRN (23:00)
[2017-06-19] MEDS ORDERED: METHADONE HCL 10 MG TABLET ONE (04:42)
[2017-06-19] MEDS ORDERED: METHADONE HCL 40 MG DISPERSABLE TABLET ONE (04:43)
[2017-06-19] MEDS: chlordiazePOXIDE 5 MG CAPSULE PO SCH ×2 (05:30→10:34)
[2017-06-19] MEDS: METHADONE 80 MG, METHADONE 20 MG PO SCH (05:30)
[2017-06-19] MEDS: NICOTINE 21 MG/24 HOURS TOPICAL PATCH TD SCH (10:34)
[2017-06-19] MEDS: CITALOPRAM HYDROBROMIDE 20 MG TABLET (FP) PO SCH (10:34)
[2017-06-19] MEDS: amLODIPine BESYLATE 10 MG TABLET (FP) PO SCH (10:34)
[2017-06-19] MEDS: PRENATAL VITAMINS W/ FOLIC ACID TABLET (FP) PO SCH (10:34)
[2017-06-19] MEDS: ALBUTEROL SO4 18 GM HFA INHALER IH PRN ×2 (10:40→17:31)
--- NOTE | 2017-06-19 14:59 | PN ---
BHS Progress Note (SOAP) Subjective: Anxious, Fatigue. Objective: PATIENT A & O X 3, OBSERVED AMBULATING ON UNIT. NO ACUTE DISTRESS. 06/19/17 14:58 Vital Signs Temperature 97.3 F L 06/19/17 14:11 Pulse Rate 77 06/19/17 14:11 Respiratory Rate 18 06/19/17 14:11 Blood Pressure 111/74 06/19/17 14:11 O2 Sat by Pulse Oximetry (%) Laboratory Tests 06/16/17 06/16/17 06/17/17 07:30 22:48 07:30 WBC 9.2 RBC 5.19 Hgb 13.2 Hct 40.9 MCV 78.8 L MCH 25.5 L MCHC 32.3 RDW 17.1 H Plt Count 346 D MPV 8.5 D Sodium Potassium Chloride Carbon Dioxide Anion Gap BUN Creatinine Creat Clearance w eGFR Random Glucose Calcium Total Bilirubin AST ALT Alkaline Phosphatase Total Protein Albumin Urine Color Dkyellow Urine Appearance Cloudy Urine pH 6.0 Ur Specific [place] 1.025 Urine Protein Negative Urine Glucose (UA) Negative Urine Ketones Negative Urine Blood Negative Urine Nitrite Negative Urine Bilirubin Negative Urine Urobilinogen Negative Ur Leukocyte Esterase Negative RPR Titer HIV 1&2 Antibody Screen Negative HIV P24 Antigen Negative 06/17/17 06/17/17 07:30 07:30 WBC RBC Hgb Hct MCV MCH MCHC RDW Plt Count MPV Sodium 140 Potassium 5.1 Chloride 105 Carbon Dioxide 33 H Anion Gap 2 L BUN 13 Creatinine 1.0 D Creat Clearance w eGFR > 60 Random Glucose 79 Calcium 9.1 Total Bilirubin < 0.1 L D AST 15 D ALT 22 D Alkaline Phosphatase 127 H D Total Protein 6.7 Albumin 3.6 Urine Color Urine Appearance Urine pH Ur Specific [place] Urine Protein Urine Glucose (UA) Urine Ketones Urine Blood Urine Nitrite Urine Bilirubin Urine Urobilinogen Ur Leukocyte Esterase RPR Titer Nonreactive HIV 1&2 Antibody Screen HIV P24 Antigen LABS NOTED. Assessment: 06/19/17 14:58 WITHDRAWAL SYMPTOMS. Plan: CONTINUE DETOX.
[2017-06-19] MEDS: chlordiazePOXIDE HCL 10 MG CAPSULE PO SCH ×2 (17:30→22:36)
[2017-06-19] MEDS: THIAMINE HCL 100 MG TABLET (FP) PO SCH (22:35)
[2017-06-19] MEDS: QUEtiapine FUMARATE 100 MG TABLET (FP) PO SCH (22:36)
[2017-06-20] MEDS ORDERED: METHADONE HCL 10 MG TABLET ONE (03:53)
[2017-06-20] MEDS ORDERED: METHADONE HCL 40 MG DISPERSABLE TABLET ONE (03:53)
[2017-06-20] MEDS: METHADONE 80 MG, METHADONE 20 MG PO SCH (06:09)
[2017-06-20] MEDS: chlordiazePOXIDE HCL 10 MG CAPSULE PO SCH (06:09)
[2017-06-20] MEDS: CITALOPRAM HYDROBROMIDE 20 MG TABLET (FP) PO SCH (09:06)
[2017-06-20] MEDS: amLODIPine BESYLATE 10 MG TABLET (FP) PO SCH (09:06)
[2017-06-20] MEDS: PRENATAL VITAMINS W/ FOLIC ACID TABLET (FP) PO SCH (09:06)
[2017-06-20] MEDS: NICOTINE 21 MG/24 HOURS TOPICAL PATCH TD SCH (09:09)
[2017-06-20 09:43] VITALS: BP 114/69; PULSE 73; TEMP 98.9
--- NOTE | 2017-06-20 11:09 | DS ---
[facility] Detox Discharge Summary Admission Date: 06/16/17 Discharge Date: 06/20/17 - History Present History: Alcohol Dependence, Cannabis Dependence, Cocaine Dependence Pertinent Past History: Bear Parkinson White Syndrome (WPW) HTN Asthma - Physical Exam Results Vital Signs: Vital Signs Temperature 98.9 F 06/20/17 09:15 Pulse Rate 73 06/20/17 09:15 Respiratory Rate 18 06/20/17 09:15 Blood Pressure 114/69 06/20/17 09:15 O2 Sat by Pulse Oximetry (%) Pertinent Admission Physical Exam Findings: Withdrawal symptoms Laboratory Tests 06/16/17 06/16/17 06/17/17 07:30 22:48 07:30 WBC 9.2 RBC 5.19 Hgb 13.2 Hct 40.9 MCV 78.8 L MCH 25.5 L MCHC 32.3 RDW 17.1 H Plt Count 346 D MPV 8.5 D Sodium Potassium Chloride Carbon Dioxide Anion Gap BUN Creatinine Creat Clearance w eGFR Random Glucose Calcium Total Bilirubin AST ALT Alkaline Phosphatase Total Protein Albumin Urine Color Dkyellow Urine Appearance Cloudy Urine pH 6.0 Ur Specific [place] 1.025 Urine Protein Negative Urine Glucose (UA) Negative Urine Ketones Negative Urine Blood Negative Urine Nitrite Negative Urine Bilirubin Negative Urine Urobilinogen Negative Ur Leukocyte Esterase Negative RPR Titer HIV 1&2 Antibody Screen Negative HIV P24 Antigen Negative 06/17/17 06/17/17 07:30 07:30 WBC RBC Hgb Hct MCV MCH MCHC RDW Plt Count MPV Sodium 140 Potassium 5.1 Chloride 105 Carbon Dioxide 33 H Anion Gap 2 L BUN 13 Creatinine 1.0 D Creat Clearance w eGFR > 60 Random Glucose 79 Calcium 9.1 Total Bilirubin < 0.1 L D AST 15 D ALT 22 D Alkaline Phosphatase 127 H D Total Protein 6.7 Albumin 3.6 Urine Color Urine Appearance Urine pH Ur Specific [place] Urine Protein Urine Glucose (UA) Urine Ketones Urine Blood Urine Nitrite Urine Bilirubin Urine Urobilinogen Ur Leukocyte Esterase RPR Titer Nonreactive HIV 1&2 Antibody Screen HIV P24 Antigen Labs reviewed - Treatment Hospital Course: Detox Protocol Followed, Detoxed Safely, Responded well, Discharged Condition Good - Medication Discharge Medications: Ambulatory Orders Citalopram Hydrobromide [Celexa -] 20 mg PO DAILY #30 tablet 11/11/16 Quetiapine Fumarate [Seroquel -] 200 mg PO HS #30 tab 11/11/16 Albuterol Sulfate Inhaler - [Ventolin HFA Inhaler -] 2 inh PO Q4H PRN #1 inhaler 11/26/16 Amlodipine Besylate [Norvasc -] 10 mg PO DAILY #30 tablet 11/26/16 Atorvastatin Ca [Lipitor] 10 mg PO HS #30 tablet 11/26/16 Gabapentin [Neurontin -] 600 mg PO TID #90 tab 11/26/16 Acetaminophen [Tylenol] 325 mg PO PRN PRN 06/16/17 Bisacodyl [Dulcolax -] 5 mg PO ONCE 06/16/17 Cholecalciferol (Vitamin D3) [Vitamin D3 -] 50,000 unit PO WEEKLY 06/16/17 Hydroxyzine HCl 50 mg PO TID 06/16/17 Multivitamin,Therapeutic [Thera] 1 each PO DAILY 06/16/17 Fluticasone Propionate [Flovent Diskus] 1 puff IH BID 06/18/17 - Diagnosis (1) Alcohol dependence with uncomplicated withdrawal Status: Acute (2) Cannabis dependence Status: Chronic (3) Cocaine dependence Status: Chronic Qualifiers: Substance use status: with unspecified cocaine-induced disorder Qualified Code(s): F14.29 - Cocaine dependence with unspecified cocaine-induced disorder (4) HTN (hypertension) Status: Chronic Qualifiers: Hypertension type: unspecified Qualified Code(s): I10 - Essential (primary ) hypertension (5) Asthma Status: Chronic Qualifiers: Asthma severity: unspecified severity Asthma persistence: persistent Asthma complication type: unspecified Qualified Code(s): J45.909 - Unspecified asthma, uncomplicated (6) Nicotine dependence Status: Chronic Qualifiers: Nicotine product type: cigarettes Substance use status: in withdrawal Qualified Code(s): F17.213 - Nicotine dependence, cigarettes, with withdrawal (7) Schizoaffective disorder Status: Chronic Qualifiers: Schizoaffective disorder type: unspecified Qualified Code(s): F25.9 - Schizoaffective disorder, unspecified (8) WPW syndrome Status: Chronic - AMA Did Patient Leave Against Medical Advice: No (F/U with your PCP within 1-2 weeks )
== END 2017-06-20 09:24 | disposition home or self-care (01) | DRG 774 ==
LOC: YASAS 12:35 → Y3N 16:58
PROVIDERS: ADMIT Internal Medicine; ATTEND Internal Medicine
PROC: HZ2ZZZZ Detoxification Services for Substance Abuse Treatment (ICD-10-PCS; principal; 2017-06-16)
DX: F10.230 Alcohol dependence with withdrawal, uncomplicated (principal); F14.20 Cocaine dependence, uncomplicated; F12.20 Cannabis dependence, uncomplicated; F17.210 Nicotine dependence, cigarettes, uncomplicated; F25.9 Schizoaffective disorder, unspecified; I10 Essential (primary) hypertension; J45.909 Unspecified asthma, uncomplicated; I45.6 Pre-excitation syndrome
CPT/HCPCS: 36415; 80053; 81003; 85027; 86593; 87389; 93005; 93010; 94640

== ENCOUNTER 2017-06-21 08:28 | Inpatient (IN) | payer OTHER ==
[2017-06-21 09:40] VITALS: BMI 21.7
--- NOTE | 2017-06-21 11:40 | HP ---
LACEY PITTMAN Rehab Assess/Revision - Admission History Admitted to Rehab from: [facility] Date of Admission to Rehab: 06/21/17 - Vital signs Vital Signs: Vital Signs Period Temp Pulse Resp BP Sys/Littlejohn Pulse Ox Last 24 Hr 96.8 F 69 18 115/69 - Findings Detox History & Physical reviewed: Yes Concur with findings: Yes Comments/Additional Findings: for rehab as protocol Inpatient Rehab Admission - Initial Determination Are CD services needed?: Yes Free of communicable disease: Yes Not in need of hospitalization: Yes - Rehab Admission Criteria Previous failed treatment: Yes Poor recovery environment: Yes Comorbidities: Yes Lacks judgement: No Patient is meeting Inpatient Rehab admission criteria:: Yes
[2017-06-21] MEDS ORDERED: MENTHOL/PHENOL 1 EACH UD MM PRN (11:42)
[2017-06-21] MEDS ORDERED: LOPERAMIDE HCL 2 MG CAPSULE PO PRN (11:42)
[2017-06-21] MEDS ORDERED: MAG HYDROX/AL HYDROX/SIMETH 30 ML UNIT-DOSE CUP PO PRN (11:42)
[2017-06-21] MEDS ORDERED: MAGNESIUM CITRATE 300 ML BOTTLE PO PRN (11:42)
[2017-06-21] MEDS ORDERED: guaiFENesin/D-METHORPHAN HB 10 ML UNIT-DOSE CUPS PO PRN (11:42)
[2017-06-21] MEDS ORDERED: hydrOXYzine PAMOATE 50 MG CAPSULE (FP) PO PRN (11:42)
[2017-06-21] MEDS ORDERED: P-EPHED 60MG/TRIPROLIDI 2.5MG TABLET PO PRN (11:42)
[2017-06-21] MEDS ORDERED: ACETAMINOPHEN 325 MG TABLET (FP) PO PRN (11:42)
[2017-06-21] MEDS ORDERED: METHADONE HCL 10 MG TABLET PO SCH (12:00)
--- NOTE | 2017-06-21 12:00 | PN ---
[facility] Progress Note Note: patient is on mmtp 100 mgs po daily,last medicated 06/20/17
[2017-06-21] MEDS: METHADONE 80 MG, METHADONE 20 MG PO SCH (14:10)
[2017-06-21] MEDS: NICOTINE 21 MG/24 HOURS TOPICAL PATCH TD SCH (14:10)
[2017-06-21] MEDS ORDERED: METHADONE HCL 10 MG TABLET ONE (14:11)
[2017-06-21] MEDS ORDERED: METHADONE HCL 40 MG DISPERSABLE TABLET ONE (14:11)
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
[2017-06-21] MEDS: GABAPENTIN 300 MG CAPSULE (FP) PO SCH ×2 (15:42→22:01)
[2017-06-21] MEDS: ATORVASTATIN CA 10 MG TABLET (FP) PO SCH (22:01)
[2017-06-21] MEDS: QUEtiapine FUMARATE 100 MG TABLET (FP) PO SCH (22:01)
[2017-06-21] MEDS: THIAMINE HCL 100 MG TABLET (FP) PO SCH (22:01)
[2017-06-21] MEDS: hydrOXYzine HCL 25 MG TABLET (FP) PO PRN (22:03)
[2017-06-22] MEDS ORDERED: METHADONE HCL 40 MG DISPERSABLE TABLET ONE (03:32)
[2017-06-22] MEDS ORDERED: METHADONE HCL 10 MG TABLET ONE (03:32)
[2017-06-22] MEDS: METHADONE 80 MG, METHADONE 20 MG PO SCH (06:20)
[2017-06-22] MEDS: GABAPENTIN 300 MG CAPSULE (FP) PO SCH ×3 (06:20→21:45)
[2017-06-22] MEDS: ALBUTEROL SO4 18 GM HFA INHALER IH PRN ×2 (06:43→23:34)
[2017-06-22] MEDS: VENLAFAXINE HCL 37.5 MG TABLET PO SCH (10:36)
[2017-06-22] MEDS: amLODIPine BESYLATE 10 MG TABLET (FP) PO SCH (10:36)
[2017-06-22] MEDS: PRENATAL VITAMINS W/ FOLIC ACID TABLET (FP) PO SCH (10:36)
[2017-06-22] MEDS: NICOTINE 21 MG/24 HOURS TOPICAL PATCH TD SCH (10:37)
[2017-06-22] MEDS: hydrOXYzine HCL 25 MG TABLET (FP) PO PRN (10:40)
[2017-06-22] MEDS ORDERED: BISACODYL 5 MG TABLET.DR (FP) PO SCH (12:45)
--- NOTE | 2017-06-22 13:00 | PN ---
[facility] Progress Note Note: c/o of chronic constipation use of methadone with last BM this morning. Reports white penile discharge only when he strains,reports this has occurred for several months prior to admission, denies any pain. Denies abdominal pain , distension, blood in the stool. Vital Signs Temperature 98.3 F 06/22/17 06:53 Pulse Rate 64 06/22/17 06:53 Respiratory Rate 18 06/22/17 06:53 Blood Pressure 105/53 06/22/17 06:53 O2 Sat by Pulse Oximetry (%) a/p Patient AOx3, no distress Normal HR and Rhythm Lungs clear through out BS x4, no guarding, nontender, non distended - Constipation Plan: Increase fluids Increase fiber ambulate in the until Bisacodyl and Senna qd Continue to monitor
[2017-06-22] MEDS: hydrOXYzine HCL 25 MG TABLET (FP) PO SCH ×2 (14:30→21:46)
[2017-06-22] MEDS: THIAMINE HCL 100 MG TABLET (FP) PO SCH (21:45)
[2017-06-22] MEDS: QUEtiapine FUMARATE 100 MG TABLET (FP) PO SCH (21:45)
[2017-06-22] MEDS: ATORVASTATIN CA 10 MG TABLET (FP) PO SCH (21:45)
[2017-06-22] MEDS: SENNOSIDES 8.6MG TABLET (FP) PO SCH (21:45)
[2017-06-23] MEDS: MELATONIN 5 MG TABLETS PO PRN (01:18)
[2017-06-23] MEDS ORDERED: METHADONE HCL 10 MG TABLET ONE (05:32)
[2017-06-23] MEDS ORDERED: METHADONE HCL 40 MG DISPERSABLE TABLET ONE (05:33)
[2017-06-23] MEDS: hydrOXYzine HCL 25 MG TABLET (FP) PO SCH ×3 (06:19→21:37)
[2017-06-23] MEDS: GABAPENTIN 300 MG CAPSULE (FP) PO SCH ×3 (06:19→21:37)
[2017-06-23] MEDS: METHADONE 80 MG, METHADONE 20 MG PO SCH (06:20)
[2017-06-23] MEDS: ALBUTEROL SO4 18 GM HFA INHALER IH PRN ×3 (06:56→21:39)
[2017-06-23] MEDS: NICOTINE 21 MG/24 HOURS TOPICAL PATCH TD SCH (09:49)
[2017-06-23] MEDS: PRENATAL VITAMINS W/ FOLIC ACID TABLET (FP) PO SCH (09:49)
[2017-06-23] MEDS: amLODIPine BESYLATE 10 MG TABLET (FP) PO SCH (09:49)
[2017-06-23] MEDS: VENLAFAXINE HCL 37.5 MG TABLET PO SCH (09:49)
[2017-06-23] MEDS: BISACODYL 5 MG TABLET.DR (FP) PO SCH (10:44)
[2017-06-23] MEDS: THIAMINE HCL 100 MG TABLET (FP) PO SCH (21:37)
[2017-06-23] MEDS: SENNOSIDES 8.6MG TABLET (FP) PO SCH (21:37)
[2017-06-23] MEDS: QUEtiapine FUMARATE 100 MG TABLET (FP) PO SCH (21:37)
[2017-06-23] MEDS: ATORVASTATIN CA 10 MG TABLET (FP) PO SCH (21:37)
[2017-06-23] MEDS: CHLORHEXIDINE GLUCONATE 0.12% 15ML CUP MM SCH (21:38)
[2017-06-24] MEDS ORDERED: METHADONE HCL 40 MG DISPERSABLE TABLET ONE (04:58)
[2017-06-24] MEDS ORDERED: METHADONE HCL 10 MG TABLET ONE (04:58)
[2017-06-24] MEDS: METHADONE 80 MG, METHADONE 20 MG PO SCH (06:20)
[2017-06-24] MEDS: GABAPENTIN 300 MG CAPSULE (FP) PO SCH ×3 (06:21→21:53)
[2017-06-24] MEDS: hydrOXYzine HCL 25 MG TABLET (FP) PO SCH ×3 (06:21→21:53)
[2017-06-24] MEDS: amLODIPine BESYLATE 10 MG TABLET (FP) PO SCH (09:50)
[2017-06-24] MEDS: VENLAFAXINE HCL 37.5 MG TABLET PO SCH (09:50)
[2017-06-24] MEDS: PRENATAL VITAMINS W/ FOLIC ACID TABLET (FP) PO SCH (09:50)
[2017-06-24] MEDS: NICOTINE 21 MG/24 HOURS TOPICAL PATCH TD SCH (09:51)
[2017-06-24] MEDS: BISACODYL 5 MG TABLET.DR (FP) PO SCH (09:52)
[2017-06-24] MEDS: CHLORHEXIDINE GLUCONATE 0.12% 15ML CUP MM SCH ×2 (09:52→21:55)
--- NOTE | 2017-06-24 15:09 | PN ---
S Progress Note Note: patient reports he is unable to sleep, having racing thoughts, will increase seroquel 150 mg po hs.
[2017-06-24] MEDS: SENNOSIDES 8.6MG TABLET (FP) PO SCH (21:53)
[2017-06-24] MEDS: ATORVASTATIN CA 10 MG TABLET (FP) PO SCH (21:53)
[2017-06-24] MEDS: THIAMINE HCL 100 MG TABLET (FP) PO SCH (21:54)
[2017-06-24] MEDS: MELATONIN 5 MG TABLETS PO PRN (21:55)
[2017-06-24] MEDS: ALBUTEROL SO4 18 GM HFA INHALER IH PRN (21:57)
[2017-06-24] MEDS ORDERED: QUEtiapine FUMARATE 50 MG TABLET PO SCH (22:00)
[2017-06-25] MEDS ORDERED: METHADONE HCL 10 MG TABLET ONE (05:32)
[2017-06-25] MEDS ORDERED: METHADONE HCL 40 MG DISPERSABLE TABLET ONE (05:32)
[2017-06-25] MEDS: GABAPENTIN 300 MG CAPSULE (FP) PO SCH ×3 (06:13→21:59)
[2017-06-25] MEDS: hydrOXYzine HCL 25 MG TABLET (FP) PO SCH ×3 (06:14→21:59)
[2017-06-25] MEDS: METHADONE 80 MG, METHADONE 20 MG PO SCH (06:14)
[2017-06-25] MEDS: amLODIPine BESYLATE 10 MG TABLET (FP) PO SCH (09:37)
[2017-06-25] MEDS: PRENATAL VITAMINS W/ FOLIC ACID TABLET (FP) PO SCH (09:37)
[2017-06-25] MEDS: CHLORHEXIDINE GLUCONATE 0.12% 15ML CUP MM SCH ×2 (09:37→22:01)
[2017-06-25] MEDS: BISACODYL 5 MG TABLET.DR (FP) PO SCH (09:37)
[2017-06-25] MEDS: NICOTINE 21 MG/24 HOURS TOPICAL PATCH TD SCH (09:37)
[2017-06-25] MEDS: VENLAFAXINE HCL 37.5 MG TABLET PO SCH (09:37)
[2017-06-25] MEDS: NICOTINE POLACRILEX 2 MG GUM BUC PRN ×2 (09:38→12:37)
[2017-06-25] MEDS ORDERED: QUEtiapine FUMARATE 50 MG TABLET PO SCH ×2 (13:15→13:20)
--- NOTE | 2017-06-25 13:25 | PN ---
Psychiatric Progress Note Vital Signs: Vital Signs Period Temp Pulse Resp BP Sys/Littlejohn Pulse Ox Last 24 Hr 98.3 F 73 16-16 125/74 Date of Session: 06/25/17 Chief Complaint:: "anxiety" HPI: Patient addressing Cocaine,cannabis, Nicotine comorbid Schizoaffective disorder. Current Medications: Active Medications Generic Name Dose Route Start Last Admin Trade Name Freq PRN Reason Stop Dose Admin Acetaminophen 650 mg 06/21/17 11:42 Tylenol - PO Q4H PRN FEVER Al Hydroxide/Mg Hydroxide 30 ml 06/21/17 11:42 Mylanta Oral Suspension - PO Q6H PRN DYSPEPSIA Albuterol Sulfate 2 puff 06/21/17 11:46 06/24/17 21:57 Ventolin Hfa Inhaler - IH 2 puff Q4H PRN Administration ASTHMA Amlodipine Besylate 10 mg 06/22/17 10:00 06/25/17 09:37 Norvasc - PO 10 mg DAILY SEVEN Administration Atorvastatin Calcium 10 mg 06/21/17 22:00 06/24/17 21:53 Lipitor - PO 10 mg HS SEVEN Administration Bisacodyl 5 mg 06/23/17 10:00 06/25/17 09:37 Dulcolax - PO 5 mg DAILY SEVEN Administration Chlorhexidine Gluconate 15 ml 06/23/17 22:00 06/25/17 09:37 Peridex - MM 15 ml BID SEVEN Administration Ergocalciferol 50,000 unit 06/28/17 10:00 Drisdol - PO MO@1000 [facility] Eucalyptus/Menthol/Phenol/Sorbitol 1 each 06/21/17 11:42 Cepastat Lozenge - MM Q4H PRN SORE THROAT Gabapentin 600 mg 06/21/17 14:00 06/25/17 06:13 Neurontin - PO 600 mg TID SEVEN Administration Guaifenesin 10 ml 06/21/17 11:42 Robitussin Dm - PO Q6H PRN COUGH Hydroxyzine HCl 50 mg 06/22/17 14:00 06/25/17 06:14 Atarax - PO 50 mg TID SEVEN Administration Ibuprofen 400 mg 06/21/17 11:42 Motrin - PO Q6H PRN Pain Level 4-6 Loperamide HCl 4 mg 06/21/17 11:42 Imodium - PO Q6H PRN DIARRHEA Magnesium Citrate 300 ml 06/21/17 11:42 Citroma - PO Q48H PRN CONSTIPATION Magnesium Hydroxide 30 ml 06/21/17 11:42 Milk Of Magnesia - PO DAILY PRN CONSTIPATION Melatonin 5 mg 06/21/17 22:00 06/24/17 21:55 Melatonin PO 5 mg HS PRN Administration INSOMNIA Methadone HCl 80 mg/ Methadone 100 mg 06/21/17 12:30 06/25/17 06:14 HCl 20 mg PO 06/28/17 12:29 100 mg DAILY@0600 SEVEN Administration Nicotine 21 mg 06/21/17 12:30 06/25/17 09:37 Nicoderm Patch - TD Not Given DAILY SEVEN Nicotine Polacrilex 2 mg 06/21/17 11:42 06/25/17 12:37 Nicorette Gum - BUC 2 mg Q2H PRN Administration NICOTINE REPLACEMENT RX Multivit/Folic Acid/Iron 1 tab 06/22/17 10:00 06/25/17 09:37 Vitamins (Sjr) - PO 1 tab DAILY SEVEN Administration Pseudoephedrine/Triprolidine 1 combo 06/21/17 11:42 Actifed - PO TID PRN NASAL CONGESTION Quetiapine Fumarate 200 mg 06/25/17 13:30 Seroquel - PO HS SEVEN Senna 1 tab 06/22/17 22:00 06/24/17 21:53 Senna - PO 1 tab HS SEVEN Administration Thiamine HCl 100 mg 06/21/17 22:00 06/24/17 21:54 Vitamin B1 - PO 100 mg HS SEVEN Administration Venlafaxine HCl 75 mg 06/25/17 13:16 Effexor - PO DAILY SEVEN Medication(s) Change(s): increase Seroquel 200 mg po hs and Effexor 75 mg po daily. Current Side Effect: No Lab tests ordered: No Lab tests reviewed: Yes Provider note:: Patient reports feeling anxious, unable to sleep and having nightmares, mood swings and racing thoughts atnights, reviewed medications with the patient , discussed indications and properties of each and discussed treatment plan, patient agreed with care plan. Supportive therapy provided. Total face to face time:: 25 Mental Status Exam - Mental Status Exam Alert and Oriented to: Time, Place, Person Cognitive Function: Grossly Intact Patient Appearance: Well Groomed Mood: Sad, Anxious, Irritable Affect: Mood Congruent Patient Behavior: Cooperative Speech Pattern: Appropriate Voice Loudness: Normal Thought Process: Goal Oriented Thought Disorder: Not Present Hallucinations: Denies Suicidal Ideation: Denies Homicidal Ideation: Denies Insight/Judgement: Fair Sleep: Fair Appetite: Fair Muscle strength/Tone: Normal Gait/Station: Normal Psychiatric Treatment Plan - Problem List (1) Alcohol dependence Current Visit: Yes (2) Asthma Current Visit: No Qualifiers: (3) Cannabis dependence Current Visit: No (4) Cocaine dependence Current Visit: No Qualifiers: Substance use status: with unspecified cocaine-induced disorder Qualified Code(s): F14.29 - Cocaine dependence with unspecified cocaine-induced disorder (5) HTN (hypertension) Current Visit: No Qualifiers: (6) Nicotine dependence Current Visit: No Qualifiers: (7) Schizoaffective disorder Current Visit: No Qualifiers: Comment: History. (8) WPW syndrome Current Visit: No (9) Opioid dependence on agonist therapy Current Visit: Yes
[2017-06-25] MEDS: ALBUTEROL SO4 18 GM HFA INHALER IH PRN (15:06)
[2017-06-25] MEDS: NICOTINE POLACRILEX 4 MG GUM BUC PRN ×2 (15:07→22:02)
[2017-06-25] MEDS: QUEtiapine FUMARATE 200 MG TABLET PO SCH (21:59)
[2017-06-25] MEDS: SENNOSIDES 8.6MG TABLET (FP) PO SCH (22:00)
[2017-06-25] MEDS: ATORVASTATIN CA 10 MG TABLET (FP) PO SCH (22:00)
[2017-06-25] MEDS: THIAMINE HCL 100 MG TABLET (FP) PO SCH (22:01)
[2017-06-26] MEDS ORDERED: METHADONE HCL 10 MG TABLET ONE (03:31)
[2017-06-26] MEDS ORDERED: METHADONE HCL 40 MG DISPERSABLE TABLET ONE (03:32)
[2017-06-26] MEDS: GABAPENTIN 300 MG CAPSULE (FP) PO SCH ×3 (06:21→21:53)
[2017-06-26] MEDS: hydrOXYzine HCL 25 MG TABLET (FP) PO SCH ×3 (06:21→21:53)
[2017-06-26] MEDS: METHADONE 80 MG, METHADONE 20 MG PO SCH (06:21)
[2017-06-26] MEDS: PRENATAL VITAMINS W/ FOLIC ACID TABLET (FP) PO SCH (10:33)
[2017-06-26] MEDS: NICOTINE 21 MG/24 HOURS TOPICAL PATCH TD SCH (10:33)
[2017-06-26] MEDS: BISACODYL 5 MG TABLET.DR (FP) PO SCH (10:33)
[2017-06-26] MEDS: amLODIPine BESYLATE 10 MG TABLET (FP) PO SCH (10:33)
[2017-06-26] MEDS: CHLORHEXIDINE GLUCONATE 0.12% 15ML CUP MM SCH ×2 (10:35→21:54)
[2017-06-26] MEDS: VENLAFAXINE HCL 75 MG TABLET PO SCH (10:36)
[2017-06-26] MEDS: NICOTINE POLACRILEX 4 MG GUM BUC PRN ×3 (10:37→21:54)
[2017-06-26] MEDS: SENNOSIDES 8.6MG TABLET (FP) PO SCH (21:52)
[2017-06-26] MEDS: ATORVASTATIN CA 10 MG TABLET (FP) PO SCH (21:52)
[2017-06-26] MEDS: THIAMINE HCL 100 MG TABLET (FP) PO SCH (21:52)
[2017-06-26] MEDS: QUEtiapine FUMARATE 200 MG TABLET PO SCH (21:53)
[2017-06-26] MEDS: ALBUTEROL SO4 18 GM HFA INHALER IH PRN (21:54)
[2017-06-27] MEDS ORDERED: METHADONE HCL 40 MG DISPERSABLE TABLET ONE (03:28)
[2017-06-27] MEDS ORDERED: METHADONE HCL 10 MG TABLET ONE (03:28)
[2017-06-27] MEDS: GABAPENTIN 300 MG CAPSULE (FP) PO SCH ×3 (06:20→21:37)
[2017-06-27] MEDS: hydrOXYzine HCL 25 MG TABLET (FP) PO SCH ×3 (06:20→21:37)
[2017-06-27] MEDS: METHADONE 80 MG, METHADONE 20 MG PO SCH (06:20)
[2017-06-27] MEDS: amLODIPine BESYLATE 10 MG TABLET (FP) PO SCH (10:13)
[2017-06-27] MEDS: BISACODYL 5 MG TABLET.DR (FP) PO SCH (10:13)
[2017-06-27] MEDS: CHLORHEXIDINE GLUCONATE 0.12% 15ML CUP MM SCH ×2 (10:14→21:37)
[2017-06-27] MEDS: NICOTINE POLACRILEX 4 MG GUM BUC PRN ×3 (10:14→21:39)
[2017-06-27] MEDS: PRENATAL VITAMINS W/ FOLIC ACID TABLET (FP) PO SCH (10:14)
[2017-06-27] MEDS: ALBUTEROL SO4 18 GM HFA INHALER IH PRN ×2 (10:15→21:38)
[2017-06-27] MEDS: VENLAFAXINE HCL 75 MG TABLET PO SCH (10:15)
[2017-06-27] MEDS: NICOTINE 21 MG/24 HOURS TOPICAL PATCH TD SCH (10:29)
[2017-06-27] MEDS: QUEtiapine FUMARATE 200 MG TABLET PO SCH (21:37)
[2017-06-27] MEDS: SENNOSIDES 8.6MG TABLET (FP) PO SCH (21:37)
[2017-06-27] MEDS: ATORVASTATIN CA 10 MG TABLET (FP) PO SCH (21:37)
[2017-06-27] MEDS: THIAMINE HCL 100 MG TABLET (FP) PO SCH (21:37)
[2017-06-28] MEDS ORDERED: METHADONE HCL 10 MG TABLET ONE (03:24)
[2017-06-28] MEDS ORDERED: METHADONE HCL 40 MG DISPERSABLE TABLET ONE (03:24)
[2017-06-28] MEDS: METHADONE 80 MG, METHADONE 20 MG PO SCH (05:55)
[2017-06-28] MEDS: GABAPENTIN 300 MG CAPSULE (FP) PO SCH ×3 (06:41→21:37)
[2017-06-28] MEDS: hydrOXYzine HCL 25 MG TABLET (FP) PO SCH ×3 (06:42→21:36)
[2017-06-28] MEDS: IBUPROFEN 400 MG TABLET (FP) PO PRN ×2 (07:06→14:04)
[2017-06-28] MEDS: ERGOCALCIFEROL (VITAMIN D2) 50,000 UNIT CAPSULE (FP) PO SCH (10:38)
[2017-06-28] MEDS: CHLORHEXIDINE GLUCONATE 0.12% 15ML CUP MM SCH ×2 (10:39→21:48)
[2017-06-28] MEDS: BISACODYL 5 MG TABLET.DR (FP) PO SCH (10:40)
[2017-06-28] MEDS: VENLAFAXINE HCL 75 MG TABLET PO SCH (10:40)
[2017-06-28] MEDS: PRENATAL VITAMINS W/ FOLIC ACID TABLET (FP) PO SCH (10:40)
[2017-06-28] MEDS: amLODIPine BESYLATE 10 MG TABLET (FP) PO SCH (10:40)
[2017-06-28] MEDS: NICOTINE 21 MG/24 HOURS TOPICAL PATCH TD SCH (10:41)
[2017-06-28] MEDS: ALBUTEROL SO4 18 GM HFA INHALER IH PRN ×2 (10:41→21:39)
[2017-06-28] MEDS: NICOTINE POLACRILEX 4 MG GUM BUC PRN ×2 (10:43→14:05)
[2017-06-28] MEDS: SENNOSIDES 8.6MG TABLET (FP) PO SCH (21:36)
[2017-06-28] MEDS: QUEtiapine FUMARATE 200 MG TABLET PO SCH (21:37)
[2017-06-28] MEDS: THIAMINE HCL 100 MG TABLET (FP) PO SCH (21:37)
[2017-06-28] MEDS: ATORVASTATIN CA 10 MG TABLET (FP) PO SCH (21:37)
[2017-06-28] MEDS: MELATONIN 5 MG TABLETS PO PRN (21:39)
[2017-06-29] MEDS: hydrOXYzine HCL 25 MG TABLET (FP) PO SCH ×3 (06:04→21:31)
[2017-06-29] MEDS: GABAPENTIN 300 MG CAPSULE (FP) PO SCH ×3 (06:05→21:31)
[2017-06-29] MEDS ORDERED: METHADONE HCL 40 MG DISPERSABLE TABLET ONE (06:44)
[2017-06-29] MEDS ORDERED: METHADONE HCL 10 MG TABLET ONE (06:44)
[2017-06-29] MEDS: NICOTINE 21 MG/24 HOURS TOPICAL PATCH TD SCH (10:13)
[2017-06-29] MEDS: BISACODYL 5 MG TABLET.DR (FP) PO SCH (10:13)
[2017-06-29] MEDS: amLODIPine BESYLATE 10 MG TABLET (FP) PO SCH (10:13)
[2017-06-29] MEDS: CHLORHEXIDINE GLUCONATE 0.12% 15ML CUP MM SCH ×2 (10:13→21:32)
[2017-06-29] MEDS: PRENATAL VITAMINS W/ FOLIC ACID TABLET (FP) PO SCH (10:13)
[2017-06-29] MEDS: VENLAFAXINE HCL 75 MG TABLET PO SCH (10:13)
[2017-06-29] MEDS: NICOTINE POLACRILEX 4 MG GUM BUC PRN ×3 (10:14→20:04)
[2017-06-29] MEDS: ALBUTEROL SO4 18 GM HFA INHALER IH PRN (10:14)
[2017-06-29] MEDS: MAGNESIUM HYDROX 2400MG/30ML ORAL SUSPENSION 30 ML CUP PO PRN (14:03)
[2017-06-29] MEDS: SENNOSIDES 8.6MG TABLET (FP) PO SCH (21:31)
[2017-06-29] MEDS: QUEtiapine FUMARATE 200 MG TABLET PO SCH (21:31)
[2017-06-29] MEDS: ATORVASTATIN CA 10 MG TABLET (FP) PO SCH (21:31)
[2017-06-29] MEDS: THIAMINE HCL 100 MG TABLET (FP) PO SCH (21:31)
[2017-06-29] MEDS: MELATONIN 5 MG TABLETS PO PRN (21:32)
[2017-06-30] MEDS ORDERED: METHADONE HCL 10 MG TABLET ONE (05:39)
[2017-06-30] MEDS ORDERED: METHADONE HCL 40 MG DISPERSABLE TABLET ONE (05:39)
[2017-06-30] MEDS: GABAPENTIN 300 MG CAPSULE (FP) PO SCH ×3 (06:18→21:44)
[2017-06-30] MEDS: METHADONE 80 MG, METHADONE 20 MG PO SCH (06:18)
[2017-06-30] MEDS: hydrOXYzine HCL 25 MG TABLET (FP) PO SCH ×3 (06:18→21:44)
[2017-06-30] MEDS: NICOTINE POLACRILEX 4 MG GUM BUC PRN ×3 (06:19→20:09)
[2017-06-30] MEDS: BISACODYL 5 MG TABLET.DR (FP) PO SCH (10:05)
[2017-06-30] MEDS: PRENATAL VITAMINS W/ FOLIC ACID TABLET (FP) PO SCH (10:05)
[2017-06-30] MEDS: CHLORHEXIDINE GLUCONATE 0.12% 15ML CUP MM SCH ×2 (10:05→21:45)
[2017-06-30] MEDS: amLODIPine BESYLATE 10 MG TABLET (FP) PO SCH (10:05)
[2017-06-30] MEDS: NICOTINE 21 MG/24 HOURS TOPICAL PATCH TD SCH (10:05)
[2017-06-30] MEDS: VENLAFAXINE HCL 75 MG TABLET PO SCH (10:07)
[2017-06-30] MEDS: ALBUTEROL SO4 18 GM HFA INHALER IH PRN (20:10)
[2017-06-30] MEDS: SENNOSIDES 8.6MG TABLET (FP) PO SCH (21:45)
[2017-06-30] MEDS: ATORVASTATIN CA 10 MG TABLET (FP) PO SCH (21:45)
[2017-06-30] MEDS: QUEtiapine FUMARATE 200 MG TABLET PO SCH (21:45)
[2017-06-30] MEDS: MELATONIN 5 MG TABLETS PO PRN (21:45)
[2017-06-30] MEDS: THIAMINE HCL 100 MG TABLET (FP) PO SCH (21:46)
[2017-07-01] MEDS ORDERED: METHADONE HCL 10 MG TABLET ONE (05:00)
[2017-07-01] MEDS ORDERED: METHADONE HCL 40 MG DISPERSABLE TABLET ONE (05:01)
[2017-07-01] MEDS: GABAPENTIN 300 MG CAPSULE (FP) PO SCH ×3 (06:21→21:55)
[2017-07-01] MEDS: hydrOXYzine HCL 25 MG TABLET (FP) PO SCH ×3 (06:21→21:55)
[2017-07-01] MEDS: METHADONE 80 MG, METHADONE 20 MG PO SCH (06:21)
[2017-07-01] MEDS: ALBUTEROL SO4 18 GM HFA INHALER IH PRN ×2 (06:24→21:54)
[2017-07-01] MEDS: NICOTINE POLACRILEX 4 MG GUM BUC PRN ×3 (06:24→20:04)
[2017-07-01] MEDS: BISACODYL 5 MG TABLET.DR (FP) PO SCH (10:15)
[2017-07-01] MEDS: amLODIPine BESYLATE 10 MG TABLET (FP) PO SCH (10:16)
[2017-07-01] MEDS: VENLAFAXINE HCL 75 MG TABLET PO SCH (10:16)
[2017-07-01] MEDS: PRENATAL VITAMINS W/ FOLIC ACID TABLET (FP) PO SCH (10:16)
[2017-07-01] MEDS: NICOTINE 21 MG/24 HOURS TOPICAL PATCH TD SCH (10:17)
[2017-07-01] MEDS: CHLORHEXIDINE GLUCONATE 0.12% 15ML CUP MM SCH ×2 (10:17→21:54)
[2017-07-01] MEDS: MAGNESIUM HYDROX 2400MG/30ML ORAL SUSPENSION 30 ML CUP PO PRN (10:19)
[2017-07-01] MEDS: SENNOSIDES 8.6MG TABLET (FP) PO SCH (21:55)
[2017-07-01] MEDS: THIAMINE HCL 100 MG TABLET (FP) PO SCH (21:55)
[2017-07-01] MEDS: QUEtiapine FUMARATE 200 MG TABLET PO SCH (21:55)
[2017-07-01] MEDS: ATORVASTATIN CA 10 MG TABLET (FP) PO SCH (21:55)
[2017-07-01] MEDS: MELATONIN 5 MG TABLETS PO PRN (21:56)
[2017-07-02] MEDS ORDERED: METHADONE HCL 40 MG DISPERSABLE TABLET ONE (03:30)
[2017-07-02] MEDS ORDERED: METHADONE HCL 10 MG TABLET ONE (03:30)
[2017-07-02] MEDS: hydrOXYzine HCL 25 MG TABLET (FP) PO SCH ×3 (06:25→21:28)
[2017-07-02] MEDS: GABAPENTIN 300 MG CAPSULE (FP) PO SCH ×3 (06:25→21:28)
[2017-07-02] MEDS: METHADONE 80 MG, METHADONE 20 MG PO SCH (06:25)
[2017-07-02] MEDS: NICOTINE POLACRILEX 4 MG GUM BUC PRN ×5 (06:49→21:30)
[2017-07-02] MEDS: MAGNESIUM HYDROX 2400MG/30ML ORAL SUSPENSION 30 ML CUP PO PRN (10:08)
[2017-07-02] MEDS: VENLAFAXINE HCL 75 MG TABLET PO SCH (10:09)
[2017-07-02] MEDS: PRENATAL VITAMINS W/ FOLIC ACID TABLET (FP) PO SCH (10:09)
[2017-07-02] MEDS: BISACODYL 5 MG TABLET.DR (FP) PO SCH (10:09)
[2017-07-02] MEDS: amLODIPine BESYLATE 10 MG TABLET (FP) PO SCH (10:09)
[2017-07-02] MEDS: CHLORHEXIDINE GLUCONATE 0.12% 15ML CUP MM SCH ×2 (10:11→21:29)
[2017-07-02] MEDS: NICOTINE 21 MG/24 HOURS TOPICAL PATCH TD SCH (10:12)
[2017-07-02] MEDS: ATORVASTATIN CA 10 MG TABLET (FP) PO SCH (21:28)
[2017-07-02] MEDS: THIAMINE HCL 100 MG TABLET (FP) PO SCH (21:28)
[2017-07-02] MEDS: ALBUTEROL SO4 18 GM HFA INHALER IH PRN (21:28)
[2017-07-02] MEDS: MELATONIN 5 MG TABLETS PO PRN (21:28)
[2017-07-02] MEDS: SENNOSIDES 8.6MG TABLET (FP) PO SCH (21:28)
[2017-07-02] MEDS: QUEtiapine FUMARATE 200 MG TABLET PO SCH (21:28)
[2017-07-03] MEDS ORDERED: METHADONE HCL 40 MG DISPERSABLE TABLET ONE (05:35)
[2017-07-03] MEDS ORDERED: METHADONE HCL 10 MG TABLET ONE (05:35)
[2017-07-03] MEDS: hydrOXYzine HCL 25 MG TABLET (FP) PO SCH ×3 (06:13→21:41)
[2017-07-03] MEDS: GABAPENTIN 300 MG CAPSULE (FP) PO SCH ×3 (06:13→21:40)
[2017-07-03] MEDS: METHADONE 80 MG, METHADONE 20 MG PO SCH (06:14)
[2017-07-03] MEDS: ALBUTEROL SO4 18 GM HFA INHALER IH PRN (06:56)
[2017-07-03] MEDS: NICOTINE POLACRILEX 4 MG GUM BUC PRN ×5 (06:58→21:46)
[2017-07-03] MEDS: VENLAFAXINE HCL 75 MG TABLET PO SCH (10:06)
[2017-07-03] MEDS: BISACODYL 5 MG TABLET.DR (FP) PO SCH (10:06)
[2017-07-03] MEDS: amLODIPine BESYLATE 10 MG TABLET (FP) PO SCH (10:06)
[2017-07-03] MEDS: NICOTINE 21 MG/24 HOURS TOPICAL PATCH TD SCH (10:06)
[2017-07-03] MEDS: PRENATAL VITAMINS W/ FOLIC ACID TABLET (FP) PO SCH (10:06)
[2017-07-03] MEDS: CHLORHEXIDINE GLUCONATE 0.12% 15ML CUP MM SCH ×2 (10:09→21:42)
[2017-07-03] MEDS: QUEtiapine FUMARATE 200 MG TABLET PO SCH (21:40)
[2017-07-03] MEDS: ATORVASTATIN CA 10 MG TABLET (FP) PO SCH (21:41)
[2017-07-03] MEDS: SENNOSIDES 8.6MG TABLET (FP) PO SCH (21:41)
[2017-07-03] MEDS: THIAMINE HCL 100 MG TABLET (FP) PO SCH (21:41)
[2017-07-03] MEDS: MELATONIN 5 MG TABLETS PO PRN (21:42)
[2017-07-03] MEDS: MAGNESIUM HYDROX 2400MG/30ML ORAL SUSPENSION 30 ML CUP PO PRN (21:46)
[2017-07-04] MEDS ORDERED: METHADONE HCL 10 MG TABLET ONE (03:09)
[2017-07-04] MEDS ORDERED: METHADONE HCL 40 MG DISPERSABLE TABLET ONE (03:10)
[2017-07-04] MEDS: hydrOXYzine HCL 25 MG TABLET (FP) PO SCH ×3 (06:33→21:43)
[2017-07-04] MEDS: METHADONE 80 MG, METHADONE 20 MG PO SCH (06:33)
[2017-07-04] MEDS: GABAPENTIN 300 MG CAPSULE (FP) PO SCH ×3 (06:34→21:43)
[2017-07-04] MEDS: NICOTINE POLACRILEX 4 MG GUM BUC PRN ×3 (07:41→21:47)
[2017-07-04] MEDS: amLODIPine BESYLATE 10 MG TABLET (FP) PO SCH (10:26)
[2017-07-04] MEDS: BISACODYL 5 MG TABLET.DR (FP) PO SCH (10:26)
[2017-07-04] MEDS: PRENATAL VITAMINS W/ FOLIC ACID TABLET (FP) PO SCH (10:26)
[2017-07-04] MEDS: NICOTINE 21 MG/24 HOURS TOPICAL PATCH TD SCH (10:26)
[2017-07-04] MEDS: VENLAFAXINE HCL 75 MG TABLET PO SCH (10:26)
[2017-07-04] MEDS: CHLORHEXIDINE GLUCONATE 0.12% 15ML CUP MM SCH ×2 (10:27→21:46)
[2017-07-04] MEDS: THIAMINE HCL 100 MG TABLET (FP) PO SCH (21:42)
[2017-07-04] MEDS: SENNOSIDES 8.6MG TABLET (FP) PO SCH (21:42)
[2017-07-04] MEDS: ATORVASTATIN CA 10 MG TABLET (FP) PO SCH (21:43)
[2017-07-04] MEDS: QUEtiapine FUMARATE 200 MG TABLET PO SCH (21:43)
[2017-07-04] MEDS: ALBUTEROL SO4 18 GM HFA INHALER IH PRN (21:44)
[2017-07-04] MEDS: MELATONIN 5 MG TABLETS PO PRN (21:44)
[2017-07-05] MEDS ORDERED: METHADONE HCL 10 MG TABLET ONE (02:54)
[2017-07-05] MEDS ORDERED: METHADONE HCL 40 MG DISPERSABLE TABLET ONE (02:54)
[2017-07-05] MEDS: METHADONE 80 MG, METHADONE 20 MG PO SCH (06:24)
[2017-07-05] MEDS: hydrOXYzine HCL 25 MG TABLET (FP) PO SCH ×3 (06:24→21:48)
[2017-07-05] MEDS: GABAPENTIN 300 MG CAPSULE (FP) PO SCH ×3 (06:24→21:47)
[2017-07-05] MEDS: NICOTINE POLACRILEX 4 MG GUM BUC PRN ×5 (06:26→21:50)
[2017-07-05] MEDS: ERGOCALCIFEROL (VITAMIN D2) 50,000 UNIT CAPSULE (FP) PO SCH (10:19)
[2017-07-05] MEDS: amLODIPine BESYLATE 10 MG TABLET (FP) PO SCH (10:20)
[2017-07-05] MEDS: PRENATAL VITAMINS W/ FOLIC ACID TABLET (FP) PO SCH (10:20)
[2017-07-05] MEDS: BISACODYL 5 MG TABLET.DR (FP) PO SCH (10:20)
[2017-07-05] MEDS: VENLAFAXINE HCL 75 MG TABLET PO SCH (10:21)
[2017-07-05] MEDS: NICOTINE 21 MG/24 HOURS TOPICAL PATCH TD SCH (10:21)
[2017-07-05] MEDS: CHLORHEXIDINE GLUCONATE 0.12% 15ML CUP MM SCH ×2 (10:22→21:50)
[2017-07-05] MEDS: THIAMINE HCL 100 MG TABLET (FP) PO SCH (21:47)
[2017-07-05] MEDS: SENNOSIDES 8.6MG TABLET (FP) PO SCH (21:47)
[2017-07-05] MEDS: QUEtiapine FUMARATE 200 MG TABLET PO SCH (21:47)
[2017-07-05] MEDS: ATORVASTATIN CA 10 MG TABLET (FP) PO SCH (21:48)
[2017-07-05] MEDS: MELATONIN 5 MG TABLETS PO PRN (21:48)
[2017-07-06] MEDS ORDERED: METHADONE HCL 10 MG TABLET ONE (04:50)
[2017-07-06] MEDS ORDERED: METHADONE HCL 40 MG DISPERSABLE TABLET ONE (04:50)
[2017-07-06] MEDS: METHADONE 80 MG, METHADONE 20 MG PO SCH (06:20)
[2017-07-06] MEDS: GABAPENTIN 300 MG CAPSULE (FP) PO SCH ×3 (06:21→21:33)
[2017-07-06] MEDS: hydrOXYzine HCL 25 MG TABLET (FP) PO SCH ×3 (06:21→21:34)
[2017-07-06] MEDS: NICOTINE POLACRILEX 4 MG GUM BUC PRN ×4 (06:27→21:37)
[2017-07-06] MEDS: BISACODYL 5 MG TABLET.DR (FP) PO SCH (10:15)
[2017-07-06] MEDS: amLODIPine BESYLATE 10 MG TABLET (FP) PO SCH (10:15)
[2017-07-06] MEDS: CHLORHEXIDINE GLUCONATE 0.12% 15ML CUP MM SCH ×2 (10:15→21:34)
[2017-07-06] MEDS: VENLAFAXINE HCL 75 MG TABLET PO SCH (10:15)
[2017-07-06] MEDS: PRENATAL VITAMINS W/ FOLIC ACID TABLET (FP) PO SCH (10:15)
[2017-07-06] MEDS: NICOTINE 21 MG/24 HOURS TOPICAL PATCH TD SCH (10:15)
[2017-07-06] MEDS: ALBUTEROL SO4 18 GM HFA INHALER IH PRN (10:20)
[2017-07-06] MEDS: ATORVASTATIN CA 10 MG TABLET (FP) PO SCH (21:34)
[2017-07-06] MEDS: THIAMINE HCL 100 MG TABLET (FP) PO SCH (21:34)
[2017-07-06] MEDS: SENNOSIDES 8.6MG TABLET (FP) PO SCH (21:34)
[2017-07-06] MEDS: QUEtiapine FUMARATE 200 MG TABLET PO SCH (21:34)
[2017-07-06] MEDS: MELATONIN 5 MG TABLETS PO PRN (21:36)
[2017-07-07] MEDS: NICOTINE POLACRILEX 4 MG GUM BUC PRN ×5 (01:11→21:34)
[2017-07-07] MEDS ORDERED: METHADONE HCL 40 MG DISPERSABLE TABLET ONE (06:09)
[2017-07-07] MEDS ORDERED: METHADONE HCL 10 MG TABLET ONE (06:09)
[2017-07-07] MEDS: hydrOXYzine HCL 25 MG TABLET (FP) PO SCH ×3 (06:31→21:32)
[2017-07-07] MEDS: METHADONE 80 MG, METHADONE 20 MG PO SCH (06:31)
[2017-07-07] MEDS: GABAPENTIN 300 MG CAPSULE (FP) PO SCH ×3 (06:31→21:32)
[2017-07-07] MEDS: amLODIPine BESYLATE 10 MG TABLET (FP) PO SCH (10:31)
[2017-07-07] MEDS: BISACODYL 5 MG TABLET.DR (FP) PO SCH (10:31)
[2017-07-07] MEDS: PRENATAL VITAMINS W/ FOLIC ACID TABLET (FP) PO SCH (10:31)
[2017-07-07] MEDS: NICOTINE 21 MG/24 HOURS TOPICAL PATCH TD SCH (10:32)
[2017-07-07] MEDS: CHLORHEXIDINE GLUCONATE 0.12% 15ML CUP MM SCH ×2 (10:32→21:34)
[2017-07-07] MEDS: VENLAFAXINE HCL 75 MG TABLET PO SCH (10:32)
[2017-07-07] MEDS: ALBUTEROL SO4 18 GM HFA INHALER IH PRN (10:33)
[2017-07-07] MEDS: ATORVASTATIN CA 10 MG TABLET (FP) PO SCH (21:32)
[2017-07-07] MEDS: QUEtiapine FUMARATE 200 MG TABLET PO SCH (21:32)
[2017-07-07] MEDS: SENNOSIDES 8.6MG TABLET (FP) PO SCH (21:32)
[2017-07-07] MEDS: MELATONIN 5 MG TABLETS PO PRN (21:33)
[2017-07-07] MEDS: THIAMINE HCL 100 MG TABLET (FP) PO SCH (21:34)
[2017-07-08] MEDS ORDERED: METHADONE HCL 10 MG TABLET ONE (03:54)
[2017-07-08] MEDS ORDERED: METHADONE HCL 40 MG DISPERSABLE TABLET ONE (03:54)
[2017-07-08] MEDS: METHADONE 80 MG, METHADONE 20 MG PO SCH (06:50)
[2017-07-08] MEDS: GABAPENTIN 300 MG CAPSULE (FP) PO SCH ×3 (06:50→21:45)
[2017-07-08] MEDS: hydrOXYzine HCL 25 MG TABLET (FP) PO SCH ×3 (06:50→21:45)
[2017-07-08] MEDS: NICOTINE POLACRILEX 4 MG GUM BUC PRN ×5 (06:53→21:48)
[2017-07-08] MEDS: PRENATAL VITAMINS W/ FOLIC ACID TABLET (FP) PO SCH (10:35)
[2017-07-08] MEDS: NICOTINE 21 MG/24 HOURS TOPICAL PATCH TD SCH (10:36)
[2017-07-08] MEDS: CHLORHEXIDINE GLUCONATE 0.12% 15ML CUP MM SCH ×2 (10:36→21:47)
[2017-07-08] MEDS: VENLAFAXINE HCL 75 MG TABLET PO SCH (10:36)
[2017-07-08] MEDS: amLODIPine BESYLATE 10 MG TABLET (FP) PO SCH (10:36)
[2017-07-08] MEDS: BISACODYL 5 MG TABLET.DR (FP) PO SCH (10:36)
[2017-07-08] MEDS: QUEtiapine FUMARATE 200 MG TABLET PO SCH (21:45)
[2017-07-08] MEDS: SENNOSIDES 8.6MG TABLET (FP) PO SCH (21:45)
[2017-07-08] MEDS: ATORVASTATIN CA 10 MG TABLET (FP) PO SCH (21:45)
[2017-07-08] MEDS: MELATONIN 5 MG TABLETS PO PRN (21:46)
[2017-07-08] MEDS: THIAMINE HCL 100 MG TABLET (FP) PO SCH (21:47)
[2017-07-09] MEDS ORDERED: METHADONE HCL 10 MG TABLET ONE (04:37)
[2017-07-09] MEDS ORDERED: METHADONE HCL 40 MG DISPERSABLE TABLET ONE (04:38)
[2017-07-09] MEDS: GABAPENTIN 300 MG CAPSULE (FP) PO SCH ×3 (06:37→21:46)
[2017-07-09] MEDS: METHADONE 80 MG, METHADONE 20 MG PO SCH (06:37)
[2017-07-09] MEDS: hydrOXYzine HCL 25 MG TABLET (FP) PO SCH ×3 (06:38→21:45)
[2017-07-09] MEDS: NICOTINE POLACRILEX 4 MG GUM BUC PRN ×5 (07:11→21:47)
[2017-07-09] MEDS: BISACODYL 5 MG TABLET.DR (FP) PO SCH (10:30)
[2017-07-09] MEDS: PRENATAL VITAMINS W/ FOLIC ACID TABLET (FP) PO SCH (10:30)
[2017-07-09] MEDS: VENLAFAXINE HCL 75 MG TABLET PO SCH (10:30)
[2017-07-09] MEDS: amLODIPine BESYLATE 10 MG TABLET (FP) PO SCH (10:30)
[2017-07-09] MEDS: NICOTINE 21 MG/24 HOURS TOPICAL PATCH TD SCH (10:30)
[2017-07-09] MEDS: CHLORHEXIDINE GLUCONATE 0.12% 15ML CUP MM SCH ×2 (10:31→21:47)
[2017-07-09] MEDS: ATORVASTATIN CA 10 MG TABLET (FP) PO SCH (21:45)
[2017-07-09] MEDS: MELATONIN 5 MG TABLETS PO PRN (21:45)
[2017-07-09] MEDS: THIAMINE HCL 100 MG TABLET (FP) PO SCH (21:45)
[2017-07-09] MEDS: SENNOSIDES 8.6MG TABLET (FP) PO SCH (21:46)
[2017-07-09] MEDS: QUEtiapine FUMARATE 200 MG TABLET PO SCH (21:46)
[2017-07-10] MEDS ORDERED: METHADONE HCL 10 MG TABLET ONE (04:46)
[2017-07-10] MEDS ORDERED: METHADONE HCL 40 MG DISPERSABLE TABLET ONE (04:46)
[2017-07-10] MEDS: METHADONE 80 MG, METHADONE 20 MG PO SCH (06:45)
[2017-07-10] MEDS: GABAPENTIN 300 MG CAPSULE (FP) PO SCH ×3 (06:46→21:35)
[2017-07-10] MEDS: hydrOXYzine HCL 25 MG TABLET (FP) PO SCH ×3 (06:46→21:34)
[2017-07-10] MEDS: NICOTINE POLACRILEX 4 MG GUM BUC PRN ×4 (06:50→20:06)
[2017-07-10] MEDS: CHLORHEXIDINE GLUCONATE 0.12% 15ML CUP MM SCH ×2 (10:20→21:36)
[2017-07-10] MEDS: VENLAFAXINE HCL 75 MG TABLET PO SCH (10:21)
[2017-07-10] MEDS: BISACODYL 5 MG TABLET.DR (FP) PO SCH (10:21)
[2017-07-10] MEDS: amLODIPine BESYLATE 10 MG TABLET (FP) PO SCH (10:21)
[2017-07-10] MEDS: PRENATAL VITAMINS W/ FOLIC ACID TABLET (FP) PO SCH (10:22)
[2017-07-10] MEDS: NICOTINE 21 MG/24 HOURS TOPICAL PATCH TD SCH (10:22)
[2017-07-10] MEDS: THIAMINE HCL 100 MG TABLET (FP) PO SCH (21:34)
[2017-07-10] MEDS: SENNOSIDES 8.6MG TABLET (FP) PO SCH (21:35)
[2017-07-10] MEDS: ATORVASTATIN CA 10 MG TABLET (FP) PO SCH (21:35)
[2017-07-10] MEDS: QUEtiapine FUMARATE 200 MG TABLET PO SCH (21:35)
[2017-07-11] MEDS ORDERED: METHADONE HCL 10 MG TABLET ONE (03:10)
[2017-07-11] MEDS ORDERED: METHADONE HCL 40 MG DISPERSABLE TABLET ONE (03:11)
[2017-07-11] MEDS: METHADONE 80 MG, METHADONE 20 MG PO SCH (06:42)
[2017-07-11] MEDS: hydrOXYzine HCL 25 MG TABLET (FP) PO SCH ×3 (06:43→21:44)
[2017-07-11] MEDS: GABAPENTIN 300 MG CAPSULE (FP) PO SCH ×3 (06:44→21:45)
[2017-07-11] MEDS: NICOTINE POLACRILEX 4 MG GUM BUC PRN ×5 (07:03→18:46)
[2017-07-11] MEDS: VENLAFAXINE HCL 75 MG TABLET PO SCH (10:11)
[2017-07-11] MEDS: BISACODYL 5 MG TABLET.DR (FP) PO SCH (10:11)
[2017-07-11] MEDS: amLODIPine BESYLATE 10 MG TABLET (FP) PO SCH (10:11)
[2017-07-11] MEDS: PRENATAL VITAMINS W/ FOLIC ACID TABLET (FP) PO SCH (10:11)
[2017-07-11] MEDS: NICOTINE 21 MG/24 HOURS TOPICAL PATCH TD SCH (10:12)
[2017-07-11] MEDS: CHLORHEXIDINE GLUCONATE 0.12% 15ML CUP MM SCH ×2 (10:12→21:48)
[2017-07-11] MEDS: SENNOSIDES 8.6MG TABLET (FP) PO SCH (21:44)
[2017-07-11] MEDS: QUEtiapine FUMARATE 200 MG TABLET PO SCH (21:45)
[2017-07-11] MEDS: ATORVASTATIN CA 10 MG TABLET (FP) PO SCH (21:45)
[2017-07-11] MEDS: ALBUTEROL SO4 18 GM HFA INHALER IH PRN (21:46)
[2017-07-11] MEDS: THIAMINE HCL 100 MG TABLET (FP) PO SCH (21:48)
[2017-07-12] MEDS ORDERED: METHADONE HCL 10 MG TABLET ONE (02:46)
[2017-07-12] MEDS ORDERED: METHADONE HCL 40 MG DISPERSABLE TABLET ONE (02:46)
[2017-07-12] MEDS: METHADONE 80 MG, METHADONE 20 MG PO SCH (06:07)
[2017-07-12] MEDS: hydrOXYzine HCL 25 MG TABLET (FP) PO SCH (06:08)
[2017-07-12] MEDS: GABAPENTIN 300 MG CAPSULE (FP) PO SCH (06:08)
[2017-07-12 07:10] VITALS: BP 102/61; PULSE 81; TEMP 98.5
[2017-07-12] MEDS: NICOTINE 21 MG/24 HOURS TOPICAL PATCH TD SCH (10:15)
[2017-07-12] MEDS: VENLAFAXINE HCL 75 MG TABLET PO SCH (10:15)
[2017-07-12] MEDS: amLODIPine BESYLATE 10 MG TABLET (FP) PO SCH (10:15)
[2017-07-12] MEDS: PRENATAL VITAMINS W/ FOLIC ACID TABLET (FP) PO SCH (10:15)
[2017-07-12] MEDS: BISACODYL 5 MG TABLET.DR (FP) PO SCH (10:15)
[2017-07-12] MEDS: CHLORHEXIDINE GLUCONATE 0.12% 15ML CUP MM SCH (10:16)
[2017-07-12] MEDS: ERGOCALCIFEROL (VITAMIN D2) 50,000 UNIT CAPSULE (FP) PO SCH (10:34)
--- NOTE | 2017-07-12 10:52 | PN ---
Psychiatric Progress Note Vital Signs: Vital Signs Period Temp Pulse Resp BP Sys/Littlejohn Pulse Ox Last 24 Hr 98.5 F 81 18-18 102/61 Date of Session: 07/12/17 Chief Complaint:: Discharge Note HPI: Patient addressing Alcohol, Cocaine and Cannabis Dependence comorbid with opioid Dependence on Agonist therapy, Nicotine Dependence and Schizoaffective Disorder ROS: Asthma, HTN, WPW syndrome Current Medications: Active Medications Generic Name Dose Route Start Last Admin Trade Name Freq PRN Reason Stop Dose Admin Acetaminophen 650 mg 06/21/17 11:42 07/10/17 13:59 Tylenol - PO 650 mg Q4H PRN Administration FEVER Al Hydroxide/Mg Hydroxide 30 ml 06/21/17 11:42 Mylanta Oral Suspension - PO Q6H PRN DYSPEPSIA Albuterol Sulfate 2 puff 06/21/17 11:46 07/11/17 21:46 Ventolin Hfa Inhaler - IH 2 puff Q4H PRN Administration ASTHMA Amlodipine Besylate 10 mg 06/22/17 10:00 07/12/17 10:15 Norvasc - PO 10 mg DAILY SEVEN Administration Atorvastatin Calcium 10 mg 06/21/17 22:00 07/11/17 21:45 Lipitor - PO 10 mg HS SEVEN Administration Bisacodyl 5 mg 06/23/17 10:00 07/12/17 10:15 Dulcolax - PO 5 mg DAILY SEVEN Administration Chlorhexidine Gluconate 15 ml 06/23/17 22:00 07/12/17 10:16 Peridex - MM Not Given BID [facility] Ergocalciferol 50,000 unit 06/28/17 10:00 07/12/17 10:34 Drisdol - PO 50,000 unit MO@1000 SEVEN Administration Eucalyptus/Menthol/Phenol/Sorbitol 1 each 06/21/17 11:42 06/30/17 20:10 Cepastat Lozenge - MM 1 each Q4H PRN Administration SORE THROAT Gabapentin 600 mg 06/21/17 14:00 07/12/17 06:08 Neurontin - PO 600 mg TID SEVEN Administration Guaifenesin 10 ml 06/21/17 11:42 Robitussin Dm - PO Q6H PRN COUGH Hydroxyzine HCl 50 mg 06/22/17 14:00 07/12/17 06:08 Atarax - PO 50 mg TID SEVEN Administration Ibuprofen 400 mg 06/21/17 11:42 06/28/17 14:04 Motrin - PO 400 mg Q6H PRN Administration Pain Level 4-6 Loperamide HCl 4 mg 06/21/17 11:42 Imodium - PO Q6H PRN DIARRHEA Magnesium Citrate 300 ml 06/21/17 11:42 07/05/17 07:39 Citroma - PO 300 ml Q48H PRN Administration CONSTIPATION Magnesium Hydroxide 30 ml 06/21/17 11:42 07/03/17 21:46 Milk Of Magnesia - PO 30 ml DAILY PRN Administration CONSTIPATION Melatonin 5 mg 06/21/17 22:00 07/09/17 21:45 Melatonin PO 5 mg HS PRN Administration INSOMNIA Methadone HCl 80 mg/ Methadone 100 mg 07/06/17 06:00 07/12/17 06:07 HCl 20 mg PO 100 mg DAILY@0600 SEVEN Administration Nicotine 21 mg 06/21/17 12:30 07/12/17 10:15 Nicoderm Patch - TD Not Given DAILY SEVEN Nicotine Polacrilex 4 mg 06/25/17 14:09 07/11/17 18:46 Nicorette Gum - BUC 4 mg Q2H PRN Administration NICOTINE REPLACEMENT RX Multivit/Folic Acid/Iron 1 tab 06/22/17 10:00 07/12/17 10:15 Vitamins (Sjr) - PO 1 tab DAILY SEVEN Administration Pseudoephedrine/Triprolidine 1 combo 06/21/17 11:42 Actifed - PO TID PRN NASAL CONGESTION Quetiapine Fumarate 200 mg 06/25/17 22:00 07/11/17 21:45 Seroquel - PO 200 mg HS SEVEN Administration Senna 1 tab 06/22/17 22:00 07/11/17 21:44 Senna - PO 1 tab HS SEVEN Administration Thiamine HCl 100 mg 06/21/17 22:00 07/11/17 21:48 Vitamin B1 - PO Not Given HS SEVEN Venlafaxine HCl 75 mg 06/26/17 10:00 07/12/17 10:15 Effexor - PO 75 mg DAILY SEVEN Administration Current Side Effect: No Lab tests ordered: Yes Lab tests reviewed: Yes Provider note:: Patient has completed this program today. 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 Told financial underwriter that from his participation in this program, he has learned the preventive skills necessary to maintain abstinence. He responded well to Seroquel 200 mg po HS and Effexor XR 75 mg po daily. Scripts for these medications are electronically transmitted to [facility] at [address] [place] [id number]. He is stable for discharge today Total face to face time:: 35 Mental Status Exam - Mental Status Exam Alert and Oriented to: Time, Place, Person Cognitive Function: Fair Patient Appearance: Well Groomed Mood: Hopeful, Euthymic Affect: Appropriate Patient Behavior: Cooperative Speech Pattern: Clear Voice Loudness: Normal Thought Process: Intact Thought Disorder: Not Present Hallucinations: Denies Suicidal Ideation: Denies Homicidal Ideation: Denies Insight/Judgement: Fair Sleep: Fair Appetite: Good Muscle strength/Tone: Normal Gait/Station: Normal Psychiatric Treatment Plan - Problem List (2) Cocaine dependence Qualifiers: Substance use status: with unspecified cocaine-induced disorder Qualified Code(s): F14.29 - Cocaine dependence with unspecified cocaine-induced disorder (5) Nicotine dependence Qualifiers: (6) Schizoaffective disorder Qualifiers: Comment: History. 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
== END 2017-07-12 11:00 | disposition home or self-care (01) | DRG 772 ==
LOC: YASAS 08:28 → Y5N 12:17
PROVIDERS: ADMIT Psychiatry & Neurology Psychiatry; ATTEND Psychiatry & Neurology Psychiatry
PROC: HZ42ZZZ Group Counseling for Substance Abuse Treatment, Cognitive-Behavioral (ICD-10-PCS; principal; 2017-06-21)
DX: F11.20 Opioid dependence, uncomplicated (principal); F14.20 Cocaine dependence, uncomplicated; F17.210 Nicotine dependence, cigarettes, uncomplicated; F25.9 Schizoaffective disorder, unspecified; J45.909 Unspecified asthma, uncomplicated; I10 Essential (primary) hypertension; K21.9 Gastro-esophageal reflux disease without esophagitis; I45.6 Pre-excitation syndrome; K59.00 Constipation, unspecified

== ENCOUNTER 2018-11-14 12:01 | Inpatient (IN) | payer OTHER ==
[2018-11-14 13:51] VITALS: BMI 28.0
--- NOTE | 2018-11-14 15:31 | HP ---
CIWA Score Nausea/Vomitin Muscle Tremors: 4-Moderate,w/Arms Extend Anxiety: 6 Agitation: 6 Paroxysmal Sweats: No Perspiration Orientation: 1-Uncertain about Date Tacttile Disturbances: 0-None Auditory Disturbances: 0-None Visual Disturbances: 2-Mild Sensitivity Headache: 0-None Present CIWA-Ar Total Score: 21 - Admission Criteria OASAS Guidelines: Admission for Medically Managed Detox: Requires at least one of the followin. CIWA greater than 12 2. Seizures within the past 24 hours 3. Delirium tremens within the past 24 hours 4. Hallucinations within the past 24 hours 5. Acute intervention needed for co occurring medical disorder 6. Acute intervention needed for co occurring psychiatric disorder 7. Severe withdrawal that cannot be handled at a lower level of care (continued vomiting, continued diarrhea, abnormal vital signs) requiring intravenous medication and/or fluids 8. Admission ROS S - HPI Chief Complaint: detox-rehab EtOH Allergies/Adverse Reactions: Allergies Allergy/AdvReac Type Severity Reaction Status Date / Time shellfish derived Allergy Severe Itching Verified 11/14/18 13:28 No Known Drug Allergies Allergy Verified 11/14/18 13:28 History of Present Illness: 42M pmh of HTN(Norvasc), asthma, lower back pain(formerly managed by chronic pain), polysubstance(EtOH, MJ, crack, methadone) presenting to [facility] for EtOH detox-rehab. Drinks tallcans x5, 1/2pint cinnaomon whiskey daily for 6days. Last drink yesterday afternoon. First drink at 3y/o. Regular drinking since 13 y /o. Blackouts x5. Has tremors after not drinking x1d. Denies seizures. Using crack since Wednesday. On Methadone(110mg) since 2ys. Denies IVDU. Smokes nearly ~ 1ppd. Detox 6mo prior at [facility]. Nondomiciled x6days after leaving long-term inpatient facility. Exam Limitations: No Limitations - Ebola screening Have you traveled outside of the country in the last 21 days: No Have you had contact with anyone from an Ebola affected area: No Do you have a fever: No - Review of Systems EENT: denies: Difficulty Swallowing Respiratory: denies: Cough, Productive cough Cardiac: denies: Chest Pain, Palpitations GI: reports: Constipated, Nausea. denies: Abdominal Distended, Diarrhea, Vomiting : denies: Burning, Frequency Neuro: reports: Tremors. denies: Headache Endocrine: reports: Unexplained Weight Loss Psychiatric: reports: Agitated, Anxious Patient History - Patient Medical History Hx Anemia: No Hx Asthma: Yes Hx Chronic Obstructive Pulmonary Disease (COPD): No Hx Cancer: No Hx Cardiac Disorders: No Hx Congestive Heart Failure: No Hx Hypertension: Yes Hx Hypercholesterolemia: No Hx Pacemaker: No HX Cerebrovascular Accident: No Hx Seizures: No Hx Dementia: No Hx Diabetes: No Hx Gastrointestinal Disorders: Yes (acid reflux) Hx Liver Disease: No Hx Genitourinary Disorders: No Hx Sexually Transmitted Disorders: No Hx Renal Disease (ESRD): No Hx Thyroid Disease: No Hx Human Immunodeficiency Virus (HIV): No (neg - 10/02/15) Hx Hepatitis C: No Hx Depression: Yes Hx Suicide Attempt: Yes (x 5 times, last episode 2 yrs ago) Hx Bipolar Disorder: Yes Hx Schizophrenia: No - Patient Surgical History Past Surgical History: No Hx Neurologic Surgery: No Hx Cataract Extraction: No Hx Cardiac Surgery: No Hx Lung Surgery: No Hx Breast Surgery: No Hx Breast Biopsy: No Hx Abdominal Surgery: No Hx Appendectomy: No Hx Cholecystectomy: No Hx Genitourinary Surgery: No Hx Section: No Hx Orthopedic Surgery: No Anesthesia Reaction: No - PPD History Date: 11/12/16 Results: 0 mm - Smoking Cessation Smoking history: Current every day smoker Have you smoked in the past 12 months: Yes Aproximately how many cigarettes per day: 15 Cigars Per Day: 0 Hx Chewing Tobacco Use: No Initiated information on smoking cessation: No - Substances abused Alcohol Substance route: Oral Frequency: Daily Amount used: 3 beers and 4 nips of spice rum Age of first use: 5 Date of last use: 11/14/18 Family Disease History - Family Disease History Family Disease History: Diabetes: Grandparent, Other: Father (NO CONTACT), Mother (NO CONTACT), Brother (NO CONTACT), Sister (NO CONTACT) Admission Physical Exam BHS - Vital Signs Vital Signs: Vital Signs - 24 hr 11/14/18 13:27 Temperature 97.0 F L Pulse Rate 52 L Respiratory 18 Rate Blood Pressure 114/70 - Physical General Appearance: Yes: Irritable, Anxious HEENTM: Yes: Normocephalic. No: Scleral Ictenus R, Scleral Ictenus L Respiratory: Yes: Chest Non-Tender, No Accessory Muscle Use. No: Rhonchi, Wheezing Neck: Yes: Trachea in good position. No: Crepetius Cardiology: Yes: S1, S2. No: Tachycardia Abdominal: Yes: Soft. No: Distended, Tenderness Musculoskeletal: Yes: Gait Steady Extremities: Yes: Tremors (with arms extended) Neurological: Yes: Alert Breathalyzer - Breathalyzer Breathalyzer: 0 Urine Drug Screen - Test Device Lot number: [id number] Expiration date: 07/29/20 - Control Is test valid?: Yes - Results Drug screen NEGATIVE: No Urine drug screen results: THC-Marijuana, GERARD-Cocaine, MTD-Methadone Inpatient Rehab Admission - Rehab Decision to Admit Inpatient rehab admission?: No
--- NOTE | 2018-11-14 15:39 | PN ---
Teaching Attending Note Name of Resident: Molina Nguyen ATTENDING PHYSICIAN STATEMENT I saw and evaluated the patient. I reviewed the resident's note and discussed the case with the resident. I agree with the resident's findings and plan as documented. SUBJECTIVE: 42 yo for alcohol detox and rehab. Last here about a year ago. HAs been drinking every day since the last year. Last drink yesterday afternoon. Uses crack cocaine, and occ uses THC. In a MAT methadone 110mg. OBJECTIVE: Vital Signs - 24 hr 11/14/18 13:27 Temperature 97.0 F L Pulse Rate 52 L Respiratory 18 Rate Blood Pressure 114/70 ASSESSMENT AND PLAN: alcohol use disorder- start detox protocol
[2018-11-14] MEDS ORDERED: IBUPROFEN 400 MG TABLET (FP) PO PRN (15:52)
[2018-11-14] MEDS ORDERED: MAGNESIUM HYDROX 2400MG/30ML ORAL SUSPENSION 30 ML CUP PO PRN (15:52)
[2018-11-14] MEDS ORDERED: BISMUTH SUBSALICYLATE 524 MG/30 ML UD PO PRN (15:52)
[2018-11-14] MEDS ORDERED: hydrOXYzine PAMOATE 25 MG CAPSULE (FP) PO PRN (15:52)
[2018-11-14] MEDS ORDERED: chlordiazePOXIDE HCL 10 MG CAPSULE PO PRN (15:52)
[2018-11-14] MEDS ORDERED: MAG HYDROX/AL HYDROX/SIMETH 30 ML UNIT-DOSE CUP PO PRN (15:52)
[2018-11-14] MEDS ORDERED: MENTHOL/PHENOL 1 EACH UD MM PRN (15:52)
[2018-11-14] MEDS ORDERED: ACETAMINOPHEN 325 MG TABLET (FP) PO PRN ×2 (15:52)
[2018-11-14] MEDS ORDERED: METHOCARBAMOL 500 MG TABLET PO PRN (15:52)
[2018-11-14] MEDS ORDERED: MAGNESIUM CITRATE 300 ML BOTTLE PO PRN (15:52)
[2018-11-14] MEDS ORDERED: chlordiazePOXIDE HCL 25 MG CAPSULE PO ONE (16:15)
[2018-11-14] MEDS ORDERED: ALBUTEROL SO4 8 GM HFA INHALER IH ONE (16:59)
[2018-11-14] MEDS: ALBUTEROL SO4 8 GM HFA INHALER IH PRN (17:00)
[2018-11-14] MEDS: chlordiazePOXIDE HCL 25 MG CAPSULE PO SCH (21:57)
[2018-11-14] MEDS: THIAMINE HCL 100 MG TABLET (FP) PO SCH (22:57)
[2018-11-14] MEDS: MELATONIN 5 MG TABLETS PO PRN (23:49)
[2018-11-14] MEDS: ALBUTEROL SO4 0.083% IH SOL 2.5 MG/3 ML VIAL.NEB. NEB PRN (23:54)
[2018-11-15] MEDS: ALBUTEROL SO4 8 GM HFA INHALER IH PRN ×2 (05:22→16:50)
[2018-11-15] MEDS: chlordiazePOXIDE HCL 25 MG CAPSULE PO SCH ×3 (05:22→22:00)
[2018-11-15] MEDS: PRENATAL VITAMINS W/ FOLIC ACID TABLET (FP) PO SCH (09:59)
[2018-11-15] MEDS ORDERED: METHADONE HCL 10 MG TABLET PO ONE (10:07)
[2018-11-15] MEDS ORDERED: METHADONE 80 MG, METHADONE 30 MG PO ONE (10:15)
[2018-11-15] MEDS ORDERED: METHADONE HCL 10 MG TABLET ONE (10:19)
[2018-11-15] MEDS ORDERED: METHADONE HCL 40 MG DISPERSABLE TABLET ONE (10:19)
[2018-11-15] MEDS: NICOTINE POLACRILEX 4 MG GUM BUC PRN ×4 (11:43→19:18)
[2018-11-15 11:59] LABS: HEMATOCRIT 35.9 % (35.4-49); HEMOGLOBIN 11.7 GM/dL (11.7-16.9); MCH 25.8 pg (25.7-33.7); MCHC 32.5 g/dl (32.0-35.9); MEAN CELL VOLUME 79.3 fl (80-96); MEAN PLT VOLUME 8.3 fl (7.5-11.1); PLATELET COUNT 535 K/MM3 (134-434); RBC 4.53 M/mm3 (4.00-5.60)
[2018-11-15 12:14] LABS: ALBUMIN 3.3 g/dl (3.4-5.0); BILIRUBIN,TOTAL 0.3 mg/dL (0.2-1); BLOOD UREA NITROGEN 7.4 mg/dL (7-18); CALCIUM 9.1 mg/dL (8.5-10.1); CREATININE 0.8 mg/dL (0.55-1.3); POTASSIUM 4.4 mmol/L (3.5-5.1); TOT PROT 6.2 g/dl (6.4-8.2)
[2018-11-15] MEDS: ALBUTEROL SO4 0.083% IH SOL 2.5 MG/3 ML VIAL.NEB. NEB PRN (12:22)
--- NOTE | 2018-11-15 12:36 | PN ---
S CIWA - CIWA Score Nausea/Vomitin-Mild Nausea/No Vomiting Muscle Tremors: 3 Anxiety: 4-Mod. Anxious/Guarded Agitation: 3 Paroxysmal Sweats: 2 Orientation: 0-Oriented Tacttile Disturbances: 1-Very Mild Itch/Numbness Auditory Disturbances: 0-None Visual Disturbances: 1-Very Mild Sensitivity Headache: 1-Very Mild CIWA-Ar Total Score: 16 S Progress Note (SOAP) Subjective: 42 years old male multiple patient [facility] admission admitted on 11/14/18 for alcohol withdrawal sx management doing well with librium detox regimen received methadone 110 mg po today feeling better ambulating on hallway social with peers in day room Objective: 11/15/18 12:40 Vital Signs Temperature 98.4 F 11/15/18 09:15 Pulse Rate 84 11/15/18 09:15 Respiratory Rate 18 11/15/18 09:15 Blood Pressure 127/68 11/15/18 09:15 O2 Sat by Pulse Oximetry (%) Laboratory Last Values WBC 10.0 K/mm3 (4.0-10.0) 11/15/18 08:50 RBC 4.53 M/mm3 (4.00-5.60) 11/15/18 08:50 Hgb 11.7 GM/dL (11.7-16.9) 11/15/18 08:50 Hct 35.9 % (35.4-49) 11/15/18 08:50 MCV 79.3 fl (80-96) L 11/15/18 08:50 MCH 25.8 pg (25.7-33.7) 11/15/18 08:50 MCHC 32.5 g/dl (32.0-35.9) 11/15/18 08:50 RDW 16.0 % (11.9-15.9) H 11/15/18 08:50 Plt Count 535 K/MM3 (134-434) H D 11/15/18 08:50 MPV 8.3 fl (7.5-11.1) 11/15/18 08:50 Sodium 140 mmol/L (136-145) 11/15/18 08:50 Potassium 4.4 mmol/L (3.5-5.1) 11/15/18 08:50 Chloride 107 mmol/L (98-107) 11/15/18 08:50 Carbon Dioxide 28 mmol/L (21-32) 11/15/18 08:50 Anion Gap 5 MMOL/L (8-16) L 11/15/18 08:50 BUN 7.4 mg/dL (7-18) 11/15/18 08:50 Creatinine 0.8 mg/dL (0.55-1.3) 11/15/18 08:50 Est GFR (CKD-EPI)AfAm 125.92 11/15/18 08:50 Est GFR (CKD-EPI)NonAf 108.65 11/15/18 08:50 Random Glucose 96 mg/dL (74-106) 11/15/18 08:50 Calcium 9.1 mg/dL (8.5-10.1) 11/15/18 08:50 Total Bilirubin 0.3 mg/dL (0.2-1) 11/15/18 08:50 AST 20 U/L (15-37) 11/15/18 08:50 ALT 38 U/L (13-61) 11/15/18 08:50 Alkaline Phosphatase 138 U/L (45-117) H 11/15/18 08:50 Total Protein 6.2 g/dl (6.4-8.2) L 11/15/18 08:50 Albumin 3.3 g/dl (3.4-5.0) L 11/15/18 08:50 lab noted Assessment: 11/15/18 12:41 alcohol withdrawal sx Plan: continue librium detox regimen
--- NOTE | 2018-11-15 17:50 | CONSULT ---
[facility] Psychiatric Consult - Data Date of interview: 11/15/18 Admission source: [facility] Identifying data: This is one of multiple admissions to [facility] for this 42 y/ o male self-referred for detoxification (alcohol, cocaine, cannabis, opioid). Seen at [address] [place] [address]. Patient is , father of one, homeless, unemployed and deprived of income ([employer] benefits cut-off during his 6 years of incarceration). Substance Abuse History: Confirmed by patient. Details in current [facility] reports as follows : Smoking history: Current every day smoker. Have you smoked in the past 12 months: Yes. Aproximately how many cigarettes per day: 15. Cigars Per Day: 0. Hx Chewing Tobacco Use: No. Initiated information on smoking cessation : No. - Substances abused. Alcohol. Substance route: Oral. Frequency: Daily. Amount used: 3 beers and 4 nips of spice rum. Age of first use: 5. Date of last use: 11/14/18 Medical History: Bronchial asthma, Parkinson - White syndrome and hypertension. Psychiatric History: Onset of psychiatric issues : childhood (behavioral disturbances). Patient got diagnosed in 1996 with Schizoaffective Disorder. Presents with a history of multiple psychiatric hospitalizations ([facility], [facility] (no longer in existence), [facility]). Mr Carrero is currently under the care of Dr Thakkar, psychiatrist at [facility] in [facility]. Patient is also on methadone maintenance (110 mg/day ). Medicated with effexor ER 150 mg/day + risperdal 2 mg/hs + remeron 45 mg/hs ( verified via review of external pharmacy activity at [facility] on 10/13/18) . History of suicide attempts (hanging in 2015). Physical/Sexual Abuse/Trauma History: Not discussed. Patient declines. Additional Comment: Urine drug screen results: THC-Marijuana, GERARD-Cocaine, MTD- Methadone. Noted. Mental Status Exam - Mental Status Exam Alert and Oriented to: Time, Place, Person Cognitive Function: Good Patient Appearance: Well Groomed Mood: Nervous, Withdrawn, Anxious Affect: Mood Congruent, Constricted Patient Behavior: Fatigued, Appropriate, Cooperative Speech Pattern: Clear Voice Loudness: Normal Thought Process: Goal Oriented Thought Disorder: Not Present Hallucinations: Denies Suicidal Ideation: Denies Homicidal Ideation: Denies Insight/Judgement: Poor Sleep: Poorly, Difficulty falling asleep Appetite: Good Muscle strength/Tone: Normal Gait/Station: Normal Psychiatric Findings - Problem List ([place] 1, 2,3) (1) Alcohol dependence with uncomplicated withdrawal Current Visit: Yes Status: Acute (2) Opioid dependence on agonist therapy Current Visit: Yes Status: Chronic (3) Cannabis dependence Current Visit: Yes Status: Chronic (4) Cocaine dependence Current Visit: Yes Status: Chronic Qualifiers: Substance use status: with unspecified cocaine-induced disorder Qualified Code(s): F14.29 - Cocaine dependence with unspecified cocaine-induced disorder (5) Nicotine dependence Current Visit: Yes Status: Chronic Qualifiers: (6) Schizoaffective disorder Current Visit: Yes Status: Chronic Qualifiers: (7) Insomnia Current Visit: Yes Status: Chronic - Initial Treatment Plan Initial Treatment Plan: Psychoeducation. Patient requests dose decrease for remeron (wants 15 mg po hs) and effexor ER (75 mg instead of 150 mg). Insists on risperdal 2 mg po hs. Ordered. Side effects/benefits of each drug are discussed with the patient. Gave verbal consent for this plan of care. Sleep hygiene. Support. AA/NA meetings. Observation.
[2018-11-15] MEDS: risperiDONE 2 MG TABLET PO SCH (22:00)
[2018-11-15] MEDS: THIAMINE HCL 100 MG TABLET (FP) PO SCH (22:00)
[2018-11-15] MEDS: MIRTAZAPINE 15 MG TABLET (FP) PO SCH (22:00)
[2018-11-15] MEDS ORDERED: MIRTAZAPINE 15 MG TABLET (FP) PO SCH (22:00)
[2018-11-15] MEDS: MELATONIN 5 MG TABLETS PO PRN (22:01)
[2018-11-16] MEDS ORDERED: METHADONE HCL 10 MG TABLET ONE (04:56)
[2018-11-16] MEDS ORDERED: METHADONE HCL 40 MG DISPERSABLE TABLET ONE (04:57)
[2018-11-16] MEDS ORDERED: METHADONE HCL 10 MG TABLET PO SCH (06:00)
[2018-11-16] MEDS: ALBUTEROL SO4 8 GM HFA INHALER IH PRN ×3 (06:08→22:04)
[2018-11-16] MEDS: METHADONE 80 MG, METHADONE 30 MG PO SCH (06:09)
[2018-11-16] MEDS: chlordiazePOXIDE 5 MG CAPSULE PO SCH ×3 (06:09→22:01)
[2018-11-16] MEDS: ALBUTEROL SO4 0.083% IH SOL 2.5 MG/3 ML VIAL.NEB. NEB PRN (08:48)
[2018-11-16] MEDS: PRENATAL VITAMINS W/ FOLIC ACID TABLET (FP) PO SCH (11:18)
[2018-11-16] MEDS: VENLAFAXINE HCL 75 MG E.R. CAPSULES (FP) PO SCH (11:18)
--- NOTE | 2018-11-16 11:37 | PN ---
S CIWA - CIWA Score Nausea/Vomitin-Mild Nausea/No Vomiting Muscle Tremors: 3 Anxiety: 3 Agitation: 2 Paroxysmal Sweats: 2 Orientation: 0-Oriented Tacttile Disturbances: 0-None Auditory Disturbances: 0-None Visual Disturbances: 0-None Headache: 2-Mild CIWA-Ar Total Score: 13 S Progress Note (SOAP) Subjective: doing well with librium detox regimen less tremor sleep better at night Objective: 11/16/18 11:39 Vital Signs Temperature 97.2 F L 11/16/18 09:34 Pulse Rate 73 11/16/18 09:34 Respiratory Rate 18 11/16/18 09:34 Blood Pressure 124/77 11/16/18 09:34 O2 Sat by Pulse Oximetry (%) Laboratory Last Values WBC 10.0 K/mm3 (4.0-10.0) 11/15/18 08:50 RBC 4.53 M/mm3 (4.00-5.60) 11/15/18 08:50 Hgb 11.7 GM/dL (11.7-16.9) 11/15/18 08:50 Hct 35.9 % (35.4-49) 11/15/18 08:50 MCV 79.3 fl (80-96) L 11/15/18 08:50 MCH 25.8 pg (25.7-33.7) 11/15/18 08:50 MCHC 32.5 g/dl (32.0-35.9) 11/15/18 08:50 RDW 16.0 % (11.9-15.9) H 11/15/18 08:50 Plt Count 535 K/MM3 (134-434) H D 11/15/18 08:50 MPV 8.3 fl (7.5-11.1) 11/15/18 08:50 Sodium 140 mmol/L (136-145) 11/15/18 08:50 Potassium 4.4 mmol/L (3.5-5.1) 11/15/18 08:50 Chloride 107 mmol/L (98-107) 11/15/18 08:50 Carbon Dioxide 28 mmol/L (21-32) 11/15/18 08:50 Anion Gap 5 MMOL/L (8-16) L 11/15/18 08:50 BUN 7.4 mg/dL (7-18) 11/15/18 08:50 Creatinine 0.8 mg/dL (0.55-1.3) 11/15/18 08:50 Est GFR (CKD-EPI)AfAm 125.92 11/15/18 08:50 Est GFR (CKD-EPI)NonAf 108.65 11/15/18 08:50 Random Glucose 96 mg/dL (74-106) 11/15/18 08:50 Calcium 9.1 mg/dL (8.5-10.1) 11/15/18 08:50 Total Bilirubin 0.3 mg/dL (0.2-1) 11/15/18 08:50 AST 20 U/L (15-37) 11/15/18 08:50 ALT 38 U/L (13-61) 11/15/18 08:50 Alkaline Phosphatase 138 U/L (45-117) H 11/15/18 08:50 Total Protein 6.2 g/dl (6.4-8.2) L 11/15/18 08:50 Albumin 3.3 g/dl (3.4-5.0) L 11/15/18 08:50 RPR Titer Nonreactive (NONREACTIVE) 11/15/18 08:50 lab noted Assessment: 11/16/18 11:39 alcohol withdrawal sx Plan: continue librium detox regimen
[2018-11-16] MEDS: NICOTINE POLACRILEX 4 MG GUM BUC PRN ×4 (13:13→22:01)
[2018-11-16] MEDS: MIRTAZAPINE 15 MG TABLET (FP) PO SCH (22:01)
[2018-11-16] MEDS: THIAMINE HCL 100 MG TABLET (FP) PO SCH (22:01)
[2018-11-16] MEDS: risperiDONE 2 MG TABLET PO SCH (22:01)
[2018-11-16] MEDS: MELATONIN 5 MG TABLETS PO PRN (22:03)
[2018-11-17] MEDS ORDERED: chlordiazePOXIDE HCL 10 MG CAPSULE PO PRN
[2018-11-17] MEDS ORDERED: METHADONE HCL 40 MG DISPERSABLE TABLET ONE (04:40)
[2018-11-17] MEDS ORDERED: METHADONE HCL 10 MG TABLET ONE (04:40)
[2018-11-17] MEDS: chlordiazePOXIDE HCL 10 MG CAPSULE PO SCH ×3 (06:31→22:01)
[2018-11-17] MEDS: METHADONE 80 MG, METHADONE 30 MG PO SCH (06:31)
[2018-11-17] MEDS: NICOTINE POLACRILEX 4 MG GUM BUC PRN ×6 (08:35→22:00)
[2018-11-17] MEDS: PRENATAL VITAMINS W/ FOLIC ACID TABLET (FP) PO SCH (10:21)
[2018-11-17] MEDS: VENLAFAXINE HCL 75 MG E.R. CAPSULES (FP) PO SCH (10:22)
[2018-11-17] MEDS: ALBUTEROL SO4 8 GM HFA INHALER IH PRN ×2 (10:23→19:33)
--- NOTE | 2018-11-17 13:04 | PN ---
[facility] CIWA - CIWA Score Nausea/Vomitin-No Nausea/No Vomiting Muscle Tremors: 2 Anxiety: 3 Agitation: 2 Paroxysmal Sweats: 1-Minimal Palms Moist Orientation: 0-Oriented Tacttile Disturbances: 0-None Auditory Disturbances: 0-None Visual Disturbances: 0-None Headache: 0-None Present CIWA-Ar Total Score: 8 S Progress Note (SOAP) Subjective: doing well with librium detox regimen seen by psychiatrist treated with resperidal and effexor discuss aftercare with staff prefers revelation patient may return to methadone program for medical and psychotropic medications Objective: 11/17/18 13:06 Vital Signs Temperature 100.2 F H 11/17/18 10:00 Pulse Rate 73 11/17/18 10:00 Respiratory Rate 18 11/17/18 10:00 Blood Pressure 114/71 11/17/18 10:00 O2 Sat by Pulse Oximetry (%) Laboratory Last Values WBC 10.0 K/mm3 (4.0-10.0) 11/15/18 08:50 RBC 4.53 M/mm3 (4.00-5.60) 11/15/18 08:50 Hgb 11.7 GM/dL (11.7-16.9) 11/15/18 08:50 Hct 35.9 % (35.4-49) 11/15/18 08:50 MCV 79.3 fl (80-96) L 11/15/18 08:50 MCH 25.8 pg (25.7-33.7) 11/15/18 08:50 MCHC 32.5 g/dl (32.0-35.9) 11/15/18 08:50 RDW 16.0 % (11.9-15.9) H 11/15/18 08:50 Plt Count 535 K/MM3 (134-434) H D 11/15/18 08:50 MPV 8.3 fl (7.5-11.1) 11/15/18 08:50 Sodium 140 mmol/L (136-145) 11/15/18 08:50 Potassium 4.4 mmol/L (3.5-5.1) 11/15/18 08:50 Chloride 107 mmol/L (98-107) 11/15/18 08:50 Carbon Dioxide 28 mmol/L (21-32) 11/15/18 08:50 Anion Gap 5 MMOL/L (8-16) L 11/15/18 08:50 BUN 7.4 mg/dL (7-18) 11/15/18 08:50 Creatinine 0.8 mg/dL (0.55-1.3) 11/15/18 08:50 Est GFR (CKD-EPI)AfAm 125.92 11/15/18 08:50 Est GFR (CKD-EPI)NonAf 108.65 11/15/18 08:50 Random Glucose 96 mg/dL (74-106) 11/15/18 08:50 Calcium 9.1 mg/dL (8.5-10.1) 11/15/18 08:50 Total Bilirubin 0.3 mg/dL (0.2-1) 11/15/18 08:50 AST 20 U/L (15-37) 11/15/18 08:50 ALT 38 U/L (13-61) 11/15/18 08:50 Alkaline Phosphatase 138 U/L (45-117) H 11/15/18 08:50 Total Protein 6.2 g/dl (6.4-8.2) L 11/15/18 08:50 Albumin 3.3 g/dl (3.4-5.0) L 11/15/18 08:50 RPR Titer Nonreactive (NONREACTIVE) 11/15/18 08:50 TB (QFT) Incubation (.) 11/15/18 08:38 TB Test (QFT) Nil 0.03 IU/mL (.) 11/15/18 08:38 TB Test (QFT) Mitogen 9.77 IU/mL (.) 11/15/18 08:38 TB Test (QFT) Antigen 0.02 IU/mL (.) 11/15/18 08:38 TB Test (QFT) Negative (Negative) 11/15/18 08:38 TB Positive Criteria (.) 11/15/18 08:38 lab noted Assessment: 11/17/18 13:06 alcohol withdrawal sx Plan: continue librium detox regimen
[2018-11-17] MEDS: risperiDONE 2 MG TABLET PO SCH (22:01)
[2018-11-17] MEDS: THIAMINE HCL 100 MG TABLET (FP) PO SCH (22:01)
[2018-11-17] MEDS: MIRTAZAPINE 15 MG TABLET (FP) PO SCH (22:01)
[2018-11-17] MEDS: MELATONIN 5 MG TABLETS PO PRN (22:03)
[2018-11-18] MEDS ORDERED: METHADONE HCL 40 MG DISPERSABLE TABLET ONE (04:31)
[2018-11-18] MEDS ORDERED: METHADONE HCL 10 MG TABLET ONE (04:31)
[2018-11-18] MEDS ORDERED: chlordiazePOXIDE HCL 10 MG CAPSULE PO ONE (05:00)
[2018-11-18] MEDS: METHADONE 80 MG, METHADONE 30 MG PO SCH (05:46)
[2018-11-18] MEDS: NICOTINE POLACRILEX 4 MG GUM BUC PRN ×2 (05:48→08:25)
[2018-11-18 09:36] VITALS: BP 122/86; PULSE 64; TEMP 98.4
[2018-11-18] MEDS ORDERED: LIDOCAINE 5% TOPICAL PATCH TP SCH (10:00)
--- NOTE | 2018-11-18 19:35 | DS ---
[facility] Detox Discharge Summary Admission Date: 11/14/18 Discharge Date: 11/18/18 - History Present History: Alcohol Dependence, Cannabis Dependence, Cocaine Dependence, Opioid Dependence Additional Comments: PATIENT RETURNING HOME, WILL RETURN TO [facility], WHERE HE HAS PREVIOUSLY BEEN A CLIENT, FOR AFTERCARE. PATIENT ALSO ADVISED TO CONSIDER LOCAL 12-STEP / NA / AA OUTPATIENT SUPPORT GROUP PROGRAMS FOR AFTERCARE. PATIENT VERBALIZED UNDERSTANDING OF RECOMMENDATION. PATIENT DECLINED OFFER OF MEDICATION PRESCRIPTION FOR HOME MEDICATION AT TIME OF DISCHARGE FROM DETOX, NOTING THAT HE CURRENTLY HAS ADEQUATE SUPPLIES OF ALL PRESCRIBED HOME MEDICATIONS AT HOME. PATIENT WAS DISCHARGED FROM DETOX UNIT IN STABLE MEDICAL CONDITION. Pertinent Past History: Asthma, HTN, Chronic Lower Back Pain, Acid Reflux, Depression, Bipolar disorder , Nicotine Dependence, Schizoaffective Disorder, Insomnia. - Physical Exam Results Vital Signs: Vital Signs Temperature 98.4 F 11/18/18 09:35 Pulse Rate 64 11/18/18 09:35 Respiratory Rate 18 11/18/18 09:35 Blood Pressure 122/86 11/18/18 09:35 O2 Sat by Pulse Oximetry (%) Pertinent Admission Physical Exam Findings: WITHDRAWAL SYMPTOMS. Laboratory Tests 11/15/18 11/15/18 11/15/18 08:38 08:50 08:50 WBC 10.0 RBC 4.53 Hgb 11.7 Hct 35.9 MCV 79.3 L MCH 25.8 MCHC 32.5 RDW 16.0 H Plt Count 535 H D MPV 8.3 Sodium 140 Potassium 4.4 Chloride 107 Carbon Dioxide 28 Anion Gap 5 L BUN 7.4 Creatinine 0.8 Est GFR (CKD-EPI)AfAm 125.92 Est GFR (CKD-EPI)NonAf 108.65 Random Glucose 96 Calcium 9.1 Total Bilirubin 0.3 AST 20 ALT 38 Alkaline Phosphatase 138 H Total Protein 6.2 L Albumin 3.3 L RPR Titer TB (QFT) Incubation TB Test (QFT) Nil 0.03 TB Test (QFT) Mitogen 9.77 TB Test (QFT) Antigen 0.02 TB Test (QFT) Negative TB Positive Criteria 11/15/18 08:50 WBC RBC Hgb Hct MCV MCH MCHC RDW Plt Count MPV Sodium Potassium Chloride Carbon Dioxide Anion Gap BUN Creatinine Est GFR (CKD-EPI)AfAm Est GFR (CKD-EPI)NonAf Random Glucose Calcium Total Bilirubin AST ALT Alkaline Phosphatase Total Protein Albumin RPR Titer Nonreactive TB (QFT) Incubation TB Test (QFT) Nil TB Test (QFT) Mitogen TB Test (QFT) Antigen TB Test (QFT) TB Positive Criteria LABS NOTED. - Treatment Hospital Course: Detox Protocol Followed, Detoxed Safely, Responded well, Discharged Condition Good Patient has Accepted a Rehab Referral to: PATIENT ADVISED TO CONSIDER LOCAL 12- STEP/NA/AA OUTPATIENT SUPPORT GROUPS. - Medication Discharge Medications: Ambulatory Orders Cholecalciferol (Vitamin D3) [Vitamin D -] 50,000 unit PO WEEKLY 06/16/17 Venlafaxine HCl ER [Effexor Xr -] 150 mg PO DAILY 11/14/18 Albuterol Sulfate Inhaler - [Ventolin HFA Inhaler -] 2 inh PO Q4H PRN #1 inhaler 11/17/18 Amlodipine Besylate [Norvasc -] 10 mg PO DAILY #30 tablet 11/17/18 Atorvastatin Ca [Lipitor] 10 mg PO HS #30 tablet 11/17/18 - Diagnosis (1) Alcohol dependence with uncomplicated withdrawal Status: Acute (2) Cannabis dependence Status: Chronic (3) Cocaine dependence Status: Chronic Qualifiers: Substance use status: with unspecified cocaine-induced disorder Qualified Code(s): F14.29 - Cocaine dependence with unspecified cocaine-induced disorder (4) Insomnia Status: Chronic Qualifiers: Insomnia type: unspecified Qualified Code(s): G47.00 - Insomnia, unspecified (5) Nicotine dependence Status: Chronic Qualifiers: Nicotine product type: cigarettes Substance use status: uncomplicated Qualified Code(s): F17.210 - Nicotine dependence, cigarettes, uncomplicated (6) Opioid dependence on agonist therapy Status: Chronic (7) Schizoaffective disorder Status: Chronic Qualifiers: Schizoaffective disorder type: unspecified Qualified Code(s): F25.9 - Schizoaffective disorder, unspecified - AMA Did Patient Leave Against Medical Advice: No [facility] CIWA - CIWA Score Nausea/Vomitin-No Nausea/No Vomiting Muscle Tremors: None Anxiety: 0-No Anxiety, at Ease Agitation: 2 Paroxysmal Sweats: No Perspiration Orientation: 0-Oriented Tacttile Disturbances: 0-None Auditory Disturbances: 0-None Visual Disturbances: 0-None Headache: 0-None Present CIWA-Ar Total Score: 2
[2018-11-18] MEDS ORDERED: LIDOCAINE PATCH REMOVAL MC SCH (22:00)
== END 2018-11-18 09:15 | disposition home or self-care (01) | DRG 773 ==
LOC: YASAS 12:01 → Y3N 16:02
PROVIDERS: ADMIT Surgery; ATTEND Surgery
PROC: HZ2ZZZZ Detoxification Services for Substance Abuse Treatment (ICD-10-PCS; principal; 2018-11-14)
DX: F10.230 Alcohol dependence with withdrawal, uncomplicated (principal); F11.20 Opioid dependence, uncomplicated; F14.20 Cocaine dependence, uncomplicated; F12.20 Cannabis dependence, uncomplicated; F17.210 Nicotine dependence, cigarettes, uncomplicated; F25.9 Schizoaffective disorder, unspecified; F31.9 Bipolar disorder, unspecified; G47.00 Insomnia, unspecified; I10 Essential (primary) hypertension; J45.909 Unspecified asthma, uncomplicated; K21.9 Gastro-esophageal reflux disease without esophagitis; M54.5 Low back pain; Z91.5 Personal history of self-harm; Z59.0 Homelessness
CPT/HCPCS: 36415; 80053; 85027; 86480; 86593; 94640

== ENCOUNTER 2023-04-02 16:35 | Inpatient (IN) | payer OTHER ==
[2023-04-02 17:18] VITALS: BMI 18.3
[2023-04-02] MEDS ORDERED: POLYETHYLENE GLYCOL (HEALTHYLAX) 3350 17 GM PACKET PO PRN (23:08)
[2023-04-02] MEDS ORDERED: BENZONATATE 200 MG CAPSULE PO PRN (23:08)
[2023-04-02] MEDS ORDERED: guaiFENesin 600 MG TABLET.ER (FP) PO PRN (23:08)
[2023-04-02] MEDS ORDERED: MAGNESIUM HYDROX 2400MG/30ML ORAL SUSPENSION 30 ML CUP PO PRN (23:08)
[2023-04-02] MEDS ORDERED: P-EPHED 60MG/TRIPROLIDI 2.5MG TABLET PO PRN (23:08)
[2023-04-02] MEDS ORDERED: NALOXONE HCL 0.4 MG/ML VIAL IM PRN (23:08)
[2023-04-02] MEDS ORDERED: LOPERAMIDE HCL 2 MG CAPSULE PO PRN (23:08)
[2023-04-02] MEDS ORDERED: NALOXONE HCL (KLOXXADO) 8 MG SPRAY NS PRN (23:08)
[2023-04-02] MEDS ORDERED: BENZOCAINE/MENTHOL (CHLORASEPTIC ) LOZENGE MM PRN (23:08)
[2023-04-02] MEDS ORDERED: ALBUTEROL SO4 HFA INHALER IH ONE (23:40)
[2023-04-02] MEDS: MELATONIN 5 MG TABLETS PO SCH (23:42)
[2023-04-02] MEDS: hydrOXYzine PAMOATE 25 MG CAPSULE (FP) PO PRN (23:42)
[2023-04-02] MEDS: ALBUTEROL SO4 HFA INHALER IH PRN (23:43)
[2023-04-02] MEDS ORDERED: MELATONIN 5 MG TABLETS ONE (23:44)
[2023-04-02] MEDS ORDERED: hydrOXYzine PAMOATE 25 MG CAPSULE (FP) PO ONE (23:45)
[2023-04-03] MEDS: IBUPROFEN 600 MG TABLET (FP) PO PRN (06:33)
[2023-04-03] MEDS: methaDONE HCL 10 MG TABLET PO SCH (07:35)
[2023-04-03] MEDS: IBUPROFEN 400 MG TABLET (FP) PO PRN (09:02)
[2023-04-03] MEDS: PRENATAL VITAMINS W/ FOLIC ACID TABLET (FP) PO SCH (09:03)
[2023-04-03] MEDS: MAG HYDROX/AL HYDROX/SIMETH 30 ML UNIT-DOSE CUP PO PRN (09:06)
[2023-04-03] MEDS: amLODIPine BESYLATE 10 MG TABLET (FP) PO SCH (09:26)
[2023-04-03] MEDS: PANTOPRAZOLE 20 MG TABLET PO SCH (09:26)
[2023-04-03 14:37] LABS: HEMATOCRIT 39.6 % (35.4-49); MCH 27.8 pg (25.7-33.7); MCHC 32.9 g/dl (32.0-35.9); MEAN CELL VOLUME 84.6 fl (80-96); PLATELET COUNT 536 10^3/uL (134-434); RBC 4.69 M/mm3 (4.00-5.60); RDW 17.8 % (11.9-15.9); WHITE BLOOD COUNT 9.5 K/mm3 (4.0-10.0)
[2023-04-03 14:38] LABS: POTASSIUM 4.9 mmol/L (3.5-5.1)
[2023-04-03 14:44] LABS: PH,URINE 7.5 (5.0-8.0); URINE APPEARANCE CLEAR; URINE BILIRUBIN NEGATIVE (NEGATIVE); URINE COLOR YELLOW; URINE GLUCOSE (UA) NEGATIVE (NEGATIVE); URINE KETONE NEGATIVE (NEGATIVE); URINE LEUK ESTERASE NEGATIVE (NEGATIVE); URINE NITRITE NEGATIVE (NEGATIVE); URINE PROTEIN NEGATIVE (NEGATIVE); URINE UROBILINOGEN 0.2 mg/dL (0.2-1.0)
[2023-04-03 15:12] LABS: CALCIUM 9.7 mg/dL (8.5-10.1)
[2023-04-03 15:13] LABS: ALBUMIN 3.5 g/dl (3.4-5.0); BLOOD UREA NITROGEN 18.8 mg/dL (7-18)
[2023-04-03 15:16] LABS: CREATININE 0.9 mg/dL (0.55-1.3)
[2023-04-03 15:17] LABS: BILIRUBIN,TOTAL 0.2 mg/dL (0.2-1); TOT PROT 6.9 g/dl (6.4-8.2)
[2023-04-03] MEDS: BISACODYL 5 MG TABLET.DR (FP) PO PRN (15:33)
[2023-04-03] MEDS: MIRTAZAPINE 15 MG TABLET (FP) PO SCH ×2 (21:00→21:17)
[2023-04-03] MEDS: THIAMINE HCL 100 MG TABLET (FP) PO SCH (21:15)
[2023-04-03] MEDS: ATORVASTATIN CA 10 MG TABLET (FP) PO SCH (21:17)
[2023-04-03] MEDS: QUEtiapine FUMARATE 50 MG TABLET PO SCH (21:17)
[2023-04-03] MEDS: NICOTINE POLACRILEX 2 MG LOZENGE BC PRN (21:18)
[2023-04-03] MEDS ORDERED: QUEtiapine FUMARATE 100 MG TABLET (FP) PO SCH (22:00)
[2023-04-04] MEDS: VENLAFAXINE HCL 37.5 MG E.R. CAPSULE PO SCH (09:54)
[2023-04-04] MEDS: ACETAMINOPHEN 325 MG TABLET (FP) PO PRN (14:46)
[2023-04-05] MEDS: BACLOFEN 10 MG TABLET (FP) PO SCH (21:12)
[2023-04-07 09:05] VITALS: BP 144/91; PULSE 74; RESP 17; TEMP 97.6
== END 2023-04-07 09:11 | disposition home or self-care (01) | DRG 772 ==
LOC: YASAS 16:35 → Y3E 23:13
PROVIDERS: ADMIT Allergy & Immunology; ATTEND Psychiatry & Neurology Pain Medicine
PROC: HZ42ZZZ Group Counseling for Substance Abuse Treatment, Cognitive-Behavioral (ICD-10-PCS; principal; 2023-04-02)
DX: F11.20 Opioid dependence, uncomplicated (principal); F14.20 Cocaine dependence, uncomplicated; F12.20 Cannabis dependence, uncomplicated; F17.210 Nicotine dependence, cigarettes, uncomplicated; F32.A Depression, unspecified; F41.9 Anxiety disorder, unspecified; E78.5 Hyperlipidemia, unspecified; I10 Essential (primary) hypertension; J45.20 Mild intermittent asthma, uncomplicated; K21.9 Gastro-esophageal reflux disease without esophagitis; M25.519 Pain in unspecified shoulder; M54.6 Pain in thoracic spine; M54.50 Low back pain, unspecified; G89.29 Other chronic pain; E87.5 Hyperkalemia
CPT/HCPCS: 0241U-QW; 36415; 80053; 81003; 82652; 83735; 85027; 86780; J0475

== ENCOUNTER 2023-06-29 16:27 | Inpatient (IN) | payer OTHER ==
[2023-06-29 17:29] VITALS: BMI 20.2
[2023-06-29] MEDS ORDERED: BENZONATATE 200 MG CAPSULE PO PRN (19:11)
[2023-06-29] MEDS ORDERED: guaiFENesin 600 MG TABLET.ER (FP) PO PRN (19:11)
[2023-06-29] MEDS ORDERED: IBUPROFEN 400 MG TABLET (FP) PO PRN (19:11)
[2023-06-29] MEDS ORDERED: NALOXONE HCL 0.4 MG/ML VIAL IM PRN (19:11)
[2023-06-29] MEDS ORDERED: LOPERAMIDE HCL 2 MG CAPSULE PO PRN (19:11)
[2023-06-29] MEDS ORDERED: NALOXONE HCL (KLOXXADO) 8 MG SPRAY NS PRN (19:11)
[2023-06-29] MEDS ORDERED: P-EPHED 60MG/TRIPROLIDI 2.5MG TABLET PO PRN (19:11)
[2023-06-29] MEDS ORDERED: methaDONE HCL 10 MG TABLET (FOR DETOX USE ONLY) ONE (19:30)
[2023-06-29] MEDS: methaDONE HCL 10 MG TABLET PO ONE (19:33)
[2023-06-29] MEDS ORDERED: BISACODYL 5 MG TABLET.DR (FP) PO PRN (20:00)
[2023-06-29] MEDS: PANTOPRAZOLE 20 MG TABLET PO SCH (20:40)
[2023-06-29] MEDS: cloNIDine HCL 0.1 MG TABLET PO ONE (20:40)
[2023-06-29] MEDS: LIDOCAINE PATCH REMOVAL MC SCH (22:31)
[2023-06-29] MEDS: ATORVASTATIN CA 10 MG TABLET (FP) PO SCH (22:31)
[2023-06-29] MEDS: THIAMINE 100 MG TABLET PO SCH (22:32)
[2023-06-29] MEDS: MELATONIN 5 MG TABLETS PO SCH (22:32)
[2023-06-29] MEDS: IBUPROFEN 600 MG TABLET (FP) PO PRN (23:49)
[2023-06-30] MEDS: methaDONE HCL 40 MG DISPERSABLE TABLET PO SCH (06:19)
[2023-06-30] MEDS: LIDOCAINE 5% TOPICAL PATCH TP SCH (10:09)
[2023-06-30] MEDS: amLODIPine BESYLATE 10 MG TABLET (FP) PO SCH (10:09)
[2023-06-30] MEDS: PRENATAL VITAMINS W/ FOLIC ACID TABLET (FP) PO SCH (10:10)
[2023-06-30] MEDS: QUEtiapine FUMARATE 100 MG TABLET (FP) PO SCH (21:23)
[2023-06-30] MEDS: ALBUTEROL SO4 HFA INHALER IH PRN (21:23)
[2023-07-01] MEDS: BISACODYL 5 MG TABLET.DR (FP) PO PRN (09:04)
[2023-07-01 14:41] LABS: URINE APPEARANCE CLEAR; URINE BILIRUBIN NEGATIVE (NEGATIVE); URINE COLOR YELLOW; URINE GLUCOSE (UA) NEGATIVE (NEGATIVE); URINE KETONE NEGATIVE (NEGATIVE); URINE LEUK ESTERASE NEGATIVE (NEGATIVE); URINE NITRITE NEGATIVE (NEGATIVE); URINE PROTEIN NEGATIVE (NEGATIVE); URINE UROBILINOGEN 0.2 mg/dL (0.2-1.0)
[2023-07-01] MEDS: GABAPENTIN 300 MG CAPSULE PO SCH (21:02)
[2023-07-01] MEDS: METHYL SALICYLATE/MENTHOL OINT 30 GM TUBE TP PRN (21:03)
[2023-07-01] MEDS ORDERED: BACLOFEN 10 MG TABLET (FP) PO SCH (22:00)
[2023-07-02] MEDS: NICOTINE POLACRILEX 2 MG LOZENGE BC PRN (09:43)
[2023-07-02] MEDS ORDERED: cloNIDine HCL 0.1 MG TABLET PO PRN (11:02)
[2023-07-02] MEDS: LISINOPRIL 5 MG TABLET PO SCH (12:00)
[2023-07-02 14:28] LABS: BASO % 0.6 % (0-2.0); HEMATOCRIT 44.2 % (35.4-49); HEMOGLOBIN 14.3 GM/dL (11.7-16.9); LYMPH % 29.2 % (8-40); MCH 26.8 pg (25.7-33.7); MCHC 32.3 g/dl (32.0-35.9); MEAN CELL VOLUME 82.8 fl (80-96); MEAN PLT VOLUME 8.4 fl (7.5-11.1); MONO % 7.3 % (3.8-10.2); NEUT % 58.9 % (42.8-82.8); PLATELET COUNT 557 10^3/uL (134-434); RBC 5.34 M/mm3 (4.00-5.60); RDW 17.8 % (11.9-15.9); WHITE BLOOD COUNT 9.6 K/mm3 (4.0-10.0)
[2023-07-02 14:32] LABS: INR 0.95 (0.83-1.09); PROTHROMBIN TIME (PATIENT) 10.7 SEC (9.7-13.0)
[2023-07-02 14:33] LABS: POTASSIUM 5.5 mmol/L (3.5-5.1)
[2023-07-02 14:37] LABS: BLOOD UREA NITROGEN 22.4 mg/dL (7-18)
[2023-07-02 14:39] LABS: CALCIUM 9.9 mg/dL (8.5-10.1)
[2023-07-02 14:40] LABS: ALBUMIN 3.8 g/dl (3.4-5.0); CREATININE 1.1 mg/dL (0.55-1.3); MAGNESIUM 2.5 mg/dL (1.8-2.4)
[2023-07-02 14:41] LABS: BILIRUBIN,TOTAL 0.3 mg/dL (0.2-1); TOT PROT 7.7 g/dl (6.4-8.2)
[2023-07-02] MEDS: SODIUM POLYSTYRENE SULFONATE 15 GM/60 ML BOTTLE PO ONE (16:19)
[2023-07-02] MEDS: FLUTICASONE PROP 0.05% 16 GM NASAL SPRAY NS PRN (21:37)
[2023-07-03] MEDS: BACLOFEN 10 MG TABLET (FP) PO SCH (10:05)
[2023-07-03] MEDS: NICOTINE POLACRILEX 2 MG GUM BUC PRN (18:38)
[2023-07-04] MEDS: SODIUM POLYSTYRENE SULFONATE 15 GM/60 ML BOTTLE PO SCH (09:35)
[2023-07-04] MEDS: ACETAMINOPHEN 325 MG TABLET (FP) PO PRN (09:36)
[2023-07-06] MEDS: BENZOCAINE/MENTHOL (CHLORASEPTIC ) LOZENGE MM PRN (06:22)
[2023-07-06] MEDS: VENLAFAXINE HCL 37.5 MG E.R. CAPSULE PO SCH (12:06)
[2023-07-06] MEDS: MAG HYDROX/AL HYDROX/SIMETH 30 ML UNIT-DOSE CUP PO PRN (19:21)
[2023-07-08] MEDS: methaDONE HCL 40 MG DISPERSABLE TABLET PO SCH (06:23)
[2023-07-09] MEDS: MAGNESIUM HYDROX 2400MG/30ML ORAL SUSPENSION 30 ML CUP PO PRN (10:49)
[2023-07-09] MEDS: CLOTRIMAZOLE 1% CREAM TP SCH (12:02)
[2023-07-09] MEDS: SENNOSIDES 8.6MG TABLET (FP) PO SCH (12:03)
[2023-07-09] MEDS: SODIUM PHOSPHATE/NA BIPHOS 133 ML ENEMA RC ONE (15:00)
[2023-07-10] MEDS: VENLAFAXINE HCL 75 MG E.R. CAPSULES PO SCH (10:25)
[2023-07-10] MEDS: POLYETHYLENE GLYCOL (HEALTHYLAX) 3350 17 GM PACKET PO PRN (11:41)
[2023-07-12 08:41] VITALS: RESP 16
[2023-07-12] MEDS: CARBAMIDE PEROXIDE 6.5% OTIC 15 ML BOTTLE AU SCH (11:14)
[2023-07-13 06:38] VITALS: TEMP 98.6
[2023-07-13 09:05] VITALS: BP 139/93; PULSE 78
== END 2023-07-13 09:35 | disposition home or self-care (01) | DRG 772 ==
LOC: YASAS 16:27 → Y3NR 20:02 → Y3W 06-30 18:28
PROVIDERS: ADMIT Allergy & Immunology; ATTEND Psychiatry & Neurology Pain Medicine
PROC: HZ42ZZZ Group Counseling for Substance Abuse Treatment, Cognitive-Behavioral (ICD-10-PCS; principal; 2023-06-29)
DX: F14.20 Cocaine dependence, uncomplicated (principal); F11.20 Opioid dependence, uncomplicated; F12.20 Cannabis dependence, uncomplicated; F17.210 Nicotine dependence, cigarettes, uncomplicated; F19.94 Other psychoactive substance use, unspecified with psychoactive substance-induced mood disorder; F25.9 Schizoaffective disorder, unspecified; F31.81 Bipolar II disorder; I10 Essential (primary) hypertension; G47.00 Insomnia, unspecified; K59.00 Constipation, unspecified; R63.4 Abnormal weight loss; M54.59 Other low back pain; G89.29 Other chronic pain; K21.9 Gastro-esophageal reflux disease without esophagitis; M25.572 Pain in left ankle and joints of left foot; E78.5 Hyperlipidemia, unspecified; I45.6 Pre-excitation syndrome; J45.909 Unspecified asthma, uncomplicated; Z85.47 Personal history of malignant neoplasm of testis; Z91.013 Allergy to seafood; Z91.51 Personal history of suicidal behavior; Z56.0 Unemployment, unspecified
CPT/HCPCS: 36415; 80053; 80305; 80307; 81003; 82140; 82652; 83735; 84132; 85025; 85610; 87811; 93005; 93010; J0475

== ENCOUNTER 2024-10-18 15:10 | Inpatient (IN) | payer OTHER ==
[2024-10-18 15:33] VITALS: BMI 17.6
[2024-10-18] MEDS ORDERED: IBUPROFEN 400 MG TABLET (FP) PO PRN (16:10)
[2024-10-18] MEDS ORDERED: LOPERAMIDE HCL 2 MG CAPSULE PO PRN (16:10)
[2024-10-18] MEDS ORDERED: BENZONATATE 200 MG CAPSULE PO PRN (16:10)
[2024-10-18] MEDS ORDERED: BENZOCAINE/MENTHOL (CHLORASEPTIC ) LOZENGE MM PRN (16:10)
[2024-10-18] MEDS ORDERED: DICYCLOMINE HCL 10 MG CAPSULE PO PRN (16:10)
[2024-10-18] MEDS ORDERED: BISMUTH SUBSALICYLATE 524 MG/30 ML PO PRN (16:10)
[2024-10-18] MEDS ORDERED: MAGNESIUM HYDROX 2400MG/30ML ORAL SUSPENSION 30 ML CUP PO PRN (16:10)
[2024-10-18] MEDS ORDERED: ONDANSETRON *ODT* 4 MG TABLET SL PRN (16:10)
[2024-10-18] MEDS ORDERED: guaiFENesin 600 MG TABLET.ER (FP) PO PRN (16:10)
[2024-10-18] MEDS ORDERED: NALOXONE (NARCAN) HCL 4 MG/0.1 ML SPRAY NS PRN (16:10)
[2024-10-18] MEDS: METHOCARBAMOL 500 MG TABLET PO PRN (18:00)
[2024-10-18] MEDS: IBUPROFEN 600 MG TABLET (FP) PO PRN (18:00)
[2024-10-18] MEDS: ALBUTEROL SO4 HFA INHALER IH PRN (18:02)
[2024-10-18] MEDS: MAG HYDROX/AL HYDROX/SIMETH 30 ML UNIT-DOSE CUP PO PRN (18:04)
[2024-10-18] MEDS: MELATONIN 5 MG TABLETS PO SCH (22:45)
[2024-10-18] MEDS: ATORVASTATIN CA 10 MG TABLET (FP) PO SCH (22:45)
[2024-10-18] MEDS: THIAMINE 100 MG TABLET PO SCH (22:45)
[2024-10-19] MEDS: ACETAMINOPHEN 325 MG TABLET (FP) PO PRN (00:06)
[2024-10-19] MEDS: PANTOPRAZOLE 20 MG TABLET PO SCH (10:19)
[2024-10-19] MEDS: PRENATAL VITAMINS W/ FOLIC ACID TABLET (FP) PO SCH (10:19)
[2024-10-19] MEDS: amLODIPine BESYLATE 10 MG TABLET (FP) PO SCH (10:19)
[2024-10-19 10:45] LABS: MCHC 31.0 g/dl (32.3-36.5); MEAN CELL VOLUME 86.3 fl (79.0-92.2); MEAN PLT VOLUME 9.9 fl (9.4-12.4); RDW 16.9 % (12.1-15.9)
[2024-10-19 10:46] LABS: GLUCOSE,RANDOM 82 mg/dL (74-106); TOT PROT 5.6 g/dl (6.4-8.2)
[2024-10-19 10:49] LABS: ALK PHOS 111 U/L (40-150)
[2024-10-19 10:50] LABS: CO2 26 mmol/L (21-32)
[2024-10-19 10:52] LABS: CREATININE 0.86 mg/dL (0.55-1.3); SGOT/AST 59 U/L (5-34); SGPT/ALT 60 U/L (0-55)
[2024-10-19] MEDS: hydrOXYzine PAMOATE 25 MG CAPSULE (FP) PO PRN (13:18)
[2024-10-19] MEDS: NICOTINE POLACRILEX 2 MG GUM BUC PRN (17:28)
[2024-10-19] MEDS ORDERED: QUEtiapine FUMARATE 100 MG TABLET (FP) PO SCH (22:00)
[2024-10-19] MEDS: MIRTAZAPINE 15 MG TABLET (FP) PO SCH (22:29)
[2024-10-19] MEDS: QUEtiapine FUMARATE 100 MG TABLET (FP) PO SCH (22:29)
[2024-10-20] MEDS: BISACODYL 5 MG TABLET.DR (FP) PO ONE (10:54)
[2024-10-20] MEDS: POLYETHYLENE GLYCOL (HEALTHYLAX) 3350 17 GM PACKET PO PRN (11:01)
[2024-10-20] MEDS: NICOTINE POLACRILEX 2 MG LOZENGE BC PRN (12:45)
[2024-10-20 20:32] VITALS: RESP 16
[2024-10-21] MEDS: NICOTINE POLACRILEX 2 MG LOZENGE BC PRN (21:34)
[2024-10-21] MEDS: BISACODYL 5 MG TABLET.DR (FP) PO ONE (22:59)
[2024-10-22 06:04] VITALS: BP 144/90; PULSE 82; TEMP 97.6
== END 2024-10-22 11:26 | disposition home or self-care (01) | DRG 773 ==
LOC: YASAS 15:10 → Y3N 17:20
PROVIDERS: ADMIT Neuromusculoskeletal Medicine & OMM; ATTEND Allergy & Immunology
PROC: HZ2ZZZZ Detoxification Services for Substance Abuse Treatment (ICD-10-PCS; principal; 2024-10-18)
DX: F10.230 Alcohol dependence with withdrawal, uncomplicated (principal); F11.20 Opioid dependence, uncomplicated; F17.210 Nicotine dependence, cigarettes, uncomplicated; F25.9 Schizoaffective disorder, unspecified; F43.10 Post-traumatic stress disorder, unspecified; F41.9 Anxiety disorder, unspecified; F32.A Depression, unspecified; F90.9 Attention-deficit hyperactivity disorder, unspecified type; J45.20 Mild intermittent asthma, uncomplicated; K21.9 Gastro-esophageal reflux disease without esophagitis; M54.50 Low back pain, unspecified; G89.29 Other chronic pain
CPT/HCPCS: 36415; 80053; 80307; 85027; 86780; 93005; 93010